=== PATIENT | female | born 1950 | race Caucasian/White ===

== ENCOUNTER → 2024-07-01 | Outpatient (CLI) | payer MEDICARE, MEDICAID, SELFPAY ==
[2024-07-01 10:38] LABS: Basophils # (Auto) 0.1 Thou/mm3 (0.0-0.2); Basophils % (Auto) 1 % (0-2.5); Eosinophils % (Auto) 0 % (0-10); Hemoglobin 9.5 g/dL (12.0-16.0); Immature Granulocytes % (Auto) 3 % (0-0); Immature Granulocytes Auto 0.38 Thou/mm3 (0.00-0.00); Lymphocytes % (Auto) 54 % (10-50); Mean Corpuscular HGB Conc 32.8 g/dl (31.0-37.0); Mean Corpuscular Hemoglobin 34.1 pg (25.0-35.0); Mean Corpuscular Volume 104 fL (80-100); Monocytes # (Auto) 0.8 Thou/mm3 (0.0-0.8); Monocytes % (Auto) 6 % (0-12); Neutrophils # (Auto) 4.7 Thou/mm3 (1.8-7.7); Neutrophils % (Auto) 36 % (37-80); Nucleated Red Blood Cell # 0.16 Thou/mm3 (0.00-0.00); Nucleated Red Blood Cell % 1 /100 WBC (0); Platelet Count 239 Thou/mm3 (140-440); RDW Standard Deviation 92.1 fL (36.4-46.3); Red Blood Count 2.79 Miln/mm3 (4.00-5.20); White Blood Count 12.9 Thou/mm3 (3.6-11.0)
== END | disposition home or self-care (01) ==
LOC: COPL 09:46
PROVIDERS: PCP Student in an Organized Health Care Education/Training Program; Referring Provider Student in an Organized Health Care Education/Training Program; Visit Provider Student in an Organized Health Care Education/Training Program
DX: D53.1 Other megaloblastic anemias, not elsewhere classified (principal); C91.10 Chronic lymphocytic leukemia of B-cell type not having achieved remission
CPT/HCPCS: 36415; 85025

== ENCOUNTER 2024-07-02 18:09 | Emergency (ER) | payer MEDICARE, MEDICAID, SELFPAY ==
[2024-07-02 18:10] VITALS: BMI 27.4
[2024-07-02 18:44] VITALS: BP 100/69; PULSE 120; RESP 18; TEMP 36.5; O2SAT 95
--- NOTE | 2024-07-02 18:55 | EKG_ITS ---
[facility] Test Date: 2024-07-02 Pat Name: JEANETTE SPEARS Department: Room: - Gender: Female [employer]: : 1950 Requested By: Marino Reis ([facility]) Order Number: [id number] Reading MD: Marino Reis ([facility]) Measurements Intervals [place] Rate: 112 P: MI: QRS: -62 QRSD: 176 T: 124 QT: 365 QTc: 500 Interpretive Statements ATRIAL FIBRILLATION WITH RAPID VENTRICULAR RESPONSE MARKED LEFT AXIS DEVIATION [QRS AXIS < -30] LEFT BUNDLE BRANCH BLOCK [120+ ms QRS DURATION, 80+ ms Q/S IN V1/V2, 85+ ms R IN I/aVL/V5/V6] Compared to ECG 05/21/2024 15:57:32 No significant changes /store/S0/[id number].pdf
--- NOTE | 2024-07-02 18:55 | XR_ITS ---
Examination: Chest 2 views Technique: Upright PA lateral chest 2 views Exam date and time: 07/02/2024 1915 hrs. Comparison September 2023 Indications: Rash and swelling in the abdomen today with chest pain Findings: Mild CHF Moderate enlargement cardiac contour Prominent vascular congestion Early perihilar basilar edema Moderate to large bilateral pleural effusions Intact osseous structures Impression: Moderate enlargement cardiac contour Mild CHF with significant bilateral pleural effusions
--- NOTE | 2024-07-02 18:57 | PD.EDRME ---
Rapid Medical Screening Exam RME Arrival date/time: 07/02/24 18:09 74-year-old female with past medical history of developmental delay, chronic kidney disease, hypertension, previous cardiac arrest, anemia, atrial fibrillation, hyperlipidemia, CHF, osteoporosis, presents emergency department with caregiver at bedside complaining of rash to bilateral lower abdomen and swelling. Chief Complaint: General Adult/Misc Complain Time Seen by Provider: 07/02/24 18:44 Vital signs: Vital Signs Temperature 97.7 F 07/02/24 18:44 Pulse Rate 120 H 07/02/24 18:44 Respiratory Rate 18 07/02/24 18:44 Blood Pressure 100/69 07/02/24 18:44 Pulse Oximetry (%) 95 07/02/24 18:44 Oxygen Delivery Method Room Air 07/02/24 18:44 Vital signs reviewed by provider: Yes
[2024-07-02 19:48] LABS: Basophils % (Auto) 0 % (0-2.5); Eosinophils % (Auto) 0 % (0-10); Hematocrit 30.2 % (36.0-46.0); Hemoglobin 9.9 g/dL (12.0-16.0); Immature Granulocytes % (Auto) 2 % (0-0); Immature Granulocytes Auto 0.35 Thou/mm3 (0.00-0.00); Lymphocytes # (Auto) 8.3 Thou/mm3 (1.0-4.8); Lymphocytes % (Auto) 55 % (10-50); Mean Corpuscular HGB Conc 32.8 g/dl (31.0-37.0); Mean Corpuscular Hemoglobin 34.3 pg (25.0-35.0); Mean Corpuscular Volume 105 fL (80-100); Monocytes # (Auto) 0.7 Thou/mm3 (0.0-0.8); Monocytes % (Auto) 4 % (0-12); Neutrophils # (Auto) 5.7 Thou/mm3 (1.8-7.7); Neutrophils % (Auto) 38 % (37-80); Nucleated Red Blood Cell # 0.15 Thou/mm3 (0.00-0.00); Nucleated Red Blood Cell % 1 /100 WBC (0); Platelet Count 257 Thou/mm3 (140-440); Red Blood Count 2.89 Miln/mm3 (4.00-5.20); White Blood Count 15.1 Thou/mm3 (3.6-11.0)
[2024-07-02 20:02] LABS: Alanine Aminotransferase 178 U/L (10-49); Albumin, Serum 4.3 gm/dL (3.4-4.8); Albumin/Globulin Ratio 1.9 (1.2-2.2); Alkaline Phosphatase 138 U/L (46-116); Anion Gap 14 (7-16); Aspartate Amino Transferase 50 U/L (0-34); BUN/Creatinine Ratio 25 Ratio (12-20); Bilirubin,Total 1.4 mg/dL (0.3-1.2); Blood Urea Nitrogen 85 mg/dL (9-23); Calcium 9.3 mg/dL (8.3-10.6); Calcium (Corrected) 9.3 mg/dL (8.5-10.1); Carbon Dioxide 24.8 mMol/L (20.0-31.0); Chloride 97 mMol/L (98-107); Creatinine (Component) 3.4 mg/dL (0.6-1.3); Estimated Creatinine Clearance 14.4 mL/min (>60); Globulin 2.3 gm/dL (2.3-3.5); Glucose 94 mg/dL (74-106); Osmolality,Calculated 297 (275-295); Potassium 3.2 mMol/L (3.4-5.1); Sodium 136 mMol/L (136-145); Total Protein 6.6 gm/dL (5.7-8.2); eGFR 14 See Note
[2024-07-02 20:05] LABS: INR 1.2 (0.9-1.3); Partial Thromboplastin Time 29.3 Seconds (22.0-36.0)
--- NOTE | 2024-07-02 20:46 | PD.EDADULT ---
ED General RME/HPI General Chief complaint: General Adult/Misc Complain Stated complaint: SWELLING TO LOWER ABD/VAGINAL AREA X3DAYS Time Seen by Provider: 07/02/24 18:44 Source: patient Arrival date/time: 07/02/24 18:09 Mode of arrival: ambulatory Limitations: no limitations RME / HPI RME / HPI narrative: 07/02/24 18:09 74-year-old female with past medical history of developmental delay, chronic kidney disease, hypertension, previous cardiac arrest, anemia, atrial fibrillation, hyperlipidemia, CHF, osteoporosis, presents emergency department with caregiver at bedside complaining of rash to bilateral lower abdomen and swelling. Dr. Escobar's Main ED Evaluation: 74-year-old male accompanied by sister who is primary hand knitter who presents to the emergency department for complaints of swollen lower abdomen today and bilateral leg swelling for the past 2 weeks. Patient's sister provides the history. She states patient is verbal but developmentally delayed. She notes patient has a rash across her lower abdomen and was going to apply ointment when she noticed it was swollen therefore she brought here her to be further evaluated. Patient's sister states she recently took the patient to be seen by her information security director for the rash. Patient was placed on antibiotics for 3 days. She denies any antifungal medications. Patient's sister also notes she is currently on Lasix. She is not on Xarelto at this time due to drug interaction with medication related to CLL per Dr. Ruiz. Patient's sister reports the following: shortness of breath, 2 falls about 1 month ago, and poor appetite and sleep. She denies nausea, vomiting, diarrhea, fever, sweating, cough, headache, chest pain or any other medical complaints or associated symptoms. Past medical history: Chronic lymphocytic leukemia previously followed by Dr. Galindo, now followed by Dr. Travis HTN, CHF, A-fib, CABG, previous cardiac arrest followed by Dr. Ruiz Chronic renal insufficiency followed by Dr. Valenzuela Developmental delay Allergic contact dermatitis Osteoporosis Remote history of seizures Social history: Nonsmoker. Nondrinker. No illicit drug use. PCP: Omari Hall Related Data Home Medications ?Medication ?Instructions ?Recorded ?Confirmed digoxin 125 mcg (0.125 mg) tablet 125 mcg PO EVERYOTHERDAY 07/20/20 05/08/23 magnesium oxide 400 mg (241.3 mg 400 mg PO QDAY 02/15/21 05/08/23 magnesium) tablet (MagOx) rivaroxaban 10 mg tablet (Xarelto) 10 mg PO QDAY 07/09/21 05/08/23 buspirone 5 mg tablet 5 mg BID 08/31/21 05/08/23 spironolactone 25 mg tablet 12.5 mg PO QDAY 08/31/21 05/08/23 carvedilol 3.125 mg tablet 3.125 mg PO BID 05/08/23 05/08/23 furosemide 40 mg tablet 40 mg PO QDAY 05/08/23 05/08/23 metolazone 2.5 mg tablet 2.5 mg PO 3XD 05/08/23 05/08/23 spironolactone 25 mg tablet mg 05/08/23 Previous Rx's ?Medication ?Instructions ?Recorded miconazole nitrate 2 % topical 1 applic topical BID #30 grams 07/02/24 cream Allergies Allergy/AdvReac Type Severity Reaction Status Date / Time morphine Allergy Severe Rash Verified 07/02/24 18:13 Penicillins Allergy Severe Hives Verified 07/02/24 18:13 Review of Systems Review of Systems Systems Reviewed: All systems reviewed, normal except as documented Past Medical History Past Medical History NEUROLOGIC: Positive Neurological Disorders, Seizures and Head Trauma CARDIAC: Positive Cardiac Disorders, Cardiac Arrhythmia, Atrial Fibrillation, Hypercholesterolemia, Congestive Heart Failure, Edema, Cellulitis and Hypertension; Negative Varicose Veins RESPIRATORY: Positive Pneumonia; Negative Chronic Obstructive Pulmonary Disease (COPD), Asthma, Tuberculosis or Sleep Apnea GASTROINTESTINAL: Negative Gastrointestinal Disorders, Hepatitis or Gastroesophageal Reflux Disease GENITOURINARY: Positive Genitourinary Disorders and Renal Disease MUSCULOSKELETAL: Positive Musculoskeletal Disorders and Osteoporosis ENT: Positive Head Trauma ENDOCRINE: Negative Endocrine Disorders, Diabetes Mellitus Type 1, Diabetes Mellitus Type 2 or Hypothyroidism HEMATOLOGIC: Positive Blood Disorders and Anemia; Negative Sickle Cell Disease PSYCHO/SOCIAL: Positive Depression and Behavior Problems; Negative Psychiatric Problems OTHER HISTORY: Positive Hospitalization and Developmental Delay; Negative Autoimmune Disease, Shingles, Falls, Blood Transfusions, Anesthesia Reactions, Chemotherapy, Radiation Therapy, MRSA, Chicken Pox, Measles, Mumps or Cancer Family History FAMILY HISTORY: Positive Family Respiratory Disorders, Family Cardiac Disorders, Family Cancer and Family Surgery; Negative Family Psychiatric Problems, Family Gastrointestinal Problems or Family Anesthesia Reaction Surgical History SURGICAL: Positive Cardiac Surgery, Open Heart Surgery and Coronary Artery Bypass Graft; Negative Pacemaker or Abdominal Surgery Social History SMOKING STATUS: Never smoker SUBSTANCE USE: does not use Past Medical History Comments PMH COMMENT: Chronic lymphocytic leukemia previously followed by Dr. Galindo, now followed by Dr. Travis HTN, CHF, A-fib on Xarelto, CABG, previous cardiac arrest followed by Dr. Ruiz Chronic renal insufficiency followed by Dr. Valenzuela Developmental delay Allergic contact dermatitis Osteoporosis Remote history of seizures ED Exam Narrative Physical exam: GENERAL: Patient is alert awake oriented to person and place under no distress, laying down comfortably at 30-45?; does not acutely look ill/ toxic. Patient is obese. Patient has poor eye contact but is cooperative. VITALS: All vitals were reviewed and the pulse ox is 95% on room air, which is normal according to my interpretation. HEENT: Normocephalic, atraumatic and nontender. Pupils are equal and reactive to light and accommodation. Oral mucosa are moist. NECK: Supple, nontender, no meningismus, no JVD. CHEST: Nontender on palpation, no deformity and no crepitus. CARDIOVASCULAR: Heart regular rhythm no murmur or gallop rub or extra beats; not tachycardic. LUNGS: Clear to auscultation bilaterally with symmetrical chest rise. No laboring tachypnea or wheezing. No intercostal subcostal retraction. No rales and no rhonchi. ABDOMEN: Soft, flat, nontender at all, no guarding or rebound tenderness. There are no abnormal masses palpated. No pulsatile masses or bruits. Active and normal bowel sounds. GENITALIA: Not examined. RECTAL EXAM: Not done. EXTREMITIES: Nontender. No edema. No cyanosis. Patient is able to move all 4 extremities well. SKIN: There is a redness and warmness just underneath the fold of her abdomen which seems to be created by the moisture and the heat. This is compatible with yeast infection but there is no secondary bacterial infection. MUSCULOSKELETAL: No lumbar or midline bony tenderness. There is no CVA tenderness. No paraspinal muscle spasm or tenderness. NEURO: There is no focalization. GCS is 14. PSYCHIATRIC: Patient is in normal mood and affect, cooperative. General Limitations: Present no limitations Course Course Course Narrative: CXR is ordered for determining etiology of chest pain per Gisell P[facility] during RME. Quality Measures none Orders Category Date Time Status EKG (ED ONLY) *Do not use* NOW Care 07/02/24 18:55 Completed EKG (ED Only) Stat Exams 07/02/24 18:55 Draft XR chest 2V Stat Exams 07/02/24 18:55 Completed BNP [B-Type Natriuretic Peptide] Stat Lab 07/02/24 17:36 Received CBC Stat Lab 07/02/24 19:36 Completed Comprehensive Metabolic Panel Stat Lab 07/02/24 19:36 Completed PT [Prothrombin Time with INR] Stat Lab 07/02/24 19:36 Completed PTT [Partial Thromboplastin Time] Stat Lab 07/02/24 19:36 Completed Troponin I Stat Lab 07/02/24 19:36 Completed Urinalysis, C/S if Indicated Stat Lab 07/02/24 18:55 Ordered Nystatin Oint [Mycostatin Oint] Med 07/02/24 21:16 Discontinued See Dose Instructions TOP X1 ONE Vital Signs Vital signs: Vital Signs Temperature 97.7 F 07/02/24 18:44 Pulse Rate 120 H 07/02/24 18:44 Respiratory Rate 18 07/02/24 18:44 Blood Pressure 100/69 07/02/24 18:44 Pulse Oximetry (%) 95 07/02/24 18:44 Oxygen Delivery Method Room Air 07/02/24 18:44 [facility] Patient data External records reviewed:: [facility] previous records Clinical information provided by:: family (sister) Social determinants that could affect healthcare access:: other (specify) (Developmental delay) Patient has the following chronic illnesses:: Chronic lymphocytic leukemia previously followed by Dr. Galindo, now followed by Dr. Travis HTN, CHF, A-fib on Xarelto, CABG, previous cardiac arrest followed by Dr. Ruiz Chronic renal insufficiency followed by Dr. Valenzuela Developmental delay Allergic contact dermatitis Osteoporosis Remote history of seizures How is presenting disease/condition affected by chronic disease/condition?: uneffected by Evaluation data The following diagnostics were reviewed and interpreted by me:: lab results, radiology exam(s) and EKG tracing(s) Lab and/or radiology exams considered but not ordered:: None Interpretation Summary: See narrative. I personally reviewed CXR on this patient. Films were reviewed. I agree with the radiologist's interpretation. Examination: Chest 2 views Technique: Upright PA lateral chest 2 views Exam date and time: 07/02/2024 1915 hrs. Comparison September 2023 Indications: Rash and swelling in the abdomen today with chest pain Findings: Mild CHF Moderate enlargement cardiac contour Prominent vascular congestion Early perihilar basilar edema Moderate to large bilateral pleural effusions Intact osseous structures Impression: Moderate enlargement cardiac contour Mild CHF with significant bilateral pleural effusions Dictated By: Kadeem Calvert MD Medications Medications considered but not ordered:: None Medication administrations:: Medication Administration History Discontinued Medications Nystatin (Nystatin Oint 30 Gm Tube) 0 gm TOP X1 ONE Stop: 07/02/24 21:17 Last Admin: 07/02/24 21:21 Dose: Not Given Documented By: SE Non-Admin Reason: Cancelled by Provider As above, if any Consultations Consultation(s) initiated? (list below): No Diagnosis Differential Diagnosis ED Complaint MDM: Yeast dermatitis, bacterial dermatitis Most likely diagnosis given after review of the tests above:: Yeast dermatitis, Chronic renal failure, Delayed emotional development Admission Indicated Admission indicated?: not indicated Explain why admission is indicated or not indicated:: Patient has no emergent abnormalities in her studies and can be managed on an outpatient basis. Admission Request Was there a request for admission?: No Disposition Plan Disposition Plan: Discharge Discharge Attestation Discharge Attestation: The patient and all family members were given an opportunity to ask questions and understood the discharge instructions. Discharge instructions specifically effects, indications for sooner follow up or return to the emergency department, and the expected course of current diagnosis. Patient condition: Stable Medical Decision Making MDM Narrative MDM Narrative: Scribe Attestation: Edith Barba am scribing for and in the presence of Dr. Escobar. Patient is a developmentally delayed patient, brought in by her sister who is concerned about her lower abdomen which is red underneath the skin fold. Patient is able to speak and she communicates fairly well. She is oriented to person and place. Patient states this rash has been there for the last 2 weeks and has been itching her. She denies any fever chills or sweating, any nausea vomiting or diarrhea. Patient denies any chest pain or coughing or headache. She complained of shortness of breath but actively she is saturating well at 95% on room air. Patient also has history of chronic lymphocytic leukemia. Her blood tests indicate her white count to be elevated at 15 but the differential is normal. H&H is 10 and 30 which is at her baseline. Her BUN and creatinine are quite elevated at 85 and 3.4 which is worse than her usual but her potassium is normal at 3.2 and her GFR is 14. The sister says that she has been with as low GFR as this in the past and there was no need for dialysis. She is being followed up by Dr Valenzuela, the mycology teacher. Patient denies any nausea vomiting or diarrhea and she denies any abdominal pain except for pain at the skin level of the fold. Patient is hemodynamically stable therefore I will discharge her home on Mycostatin cream 2%. Provider Notation: Although this document has been carefully reviewed, there may still be some phonetic and other typographical errors. These errors are purely grammatical due to imperfections in the software program and should not be construed in any way to compromise the substance of the patient's medical care during this visit. Differential Diagnosis Differential Diagnosis: Yeast dermatitis, bacterial dermatitis Medical Records Medical records reviewed: Yes I reviewed the patient's medical records. Lab Data Lab results reviewed: Yes I reviewed the patient's lab results. 07/02/24 19:36 07/02/24 19:36 Labs: Lab Results 07/02/24 Range/Units 19:36 WBC 15.1 H (3.6-11.0) Thou/mm3 RBC 2.89 L (4.00-5.20) Miln/mm3 Hgb 9.9 L (12.0-16.0) g/dL Hct 30.2 L (36.0-46.0) % MCV 105 H (80-100) fL MCH 34.3 (25.0-35.0) pg MCHC 32.8 (31.0-37.0) g/dl RDW Std Deviation 95.0 H (36.4-46.3) fL Plt Count 257 (140-440) Thou/mm3 Neut % (Auto) 38 (37-80) % Lymph % (Auto) 55 H (10-50) % [place] % (Auto) 4 (0-12) % Eos % (Auto) 0 (0-10) % Baso % (Auto) 0 (0-2.5) % Neut # (Auto) 5.7 (1.8-7.7) Thou/mm3 Lymph # (Auto) 8.3 H (1.0-4.8) Thou/mm3 [place] # (Auto) 0.7 (0.0-0.8) Thou/mm3 Eos # (Auto) 0.0 (0.0-0.5) Thou/mm3 Baso # (Auto) 0.0 (0.0-0.2) Thou/mm3 Immature Gran # (Auto) 0.35 H (0.00-0.00) Thou/mm3 Absolute Nucleated RBC 0.15 H (0.00-0.00) Thou/mm3 Immature Gran % 2 H (0-0) % Nucleated RBC % 1 H (0) /100 WBC PT 13.0 H (9.0-12.2) Seconds INR 1.2 (0.9-1.3) APTT 29.3 (22.0-36.0) Seconds Sodium 136 (136-145) mMol/L Potassium 3.2 L (3.4-5.1) mMol/L Chloride 97 L (98-107) mMol/L Carbon Dioxide 24.8 (20.0-31.0) mMol/L Anion Gap 14 (7-16) BUN 85 H (9-23) mg/dL Creatinine 3.4 H (0.6-1.3) mg/dL Estim Creat Clear Calc 14.4 L (>60) mL/min eGFR 14 L* (60 - ) See Note BUN/Creatinine Ratio 25 H (12-20) Ratio Glucose 94 (74-106) mg/dL Calculated Osmolality 297 H (275-295) Calcium 9.3 (8.3-10.6) mg/dL Corrected Calcium 9.3 (8.5-10.1) mg/dL Total Bilirubin 1.4 H (0.3-1.2) mg/dL AST 50 H (0-34) U/L ALT 178 H (10-49) U/L Alkaline Phosphatase 138 H (46-116) U/L Troponin I 0.090 H* (0.0-0.045) ng/mL Total Protein 6.6 (5.7-8.2) gm/dL Albumin 4.3 (3.4-4.8) gm/dL Globulin 2.3 (2.3-3.5) gm/dL Albumin/Globulin Ratio 1.9 (1.2-2.2) Radiology Data Radiology results reviewed: Yes I reviewed the patient's radiology results. Discharge Plan Plan Patient Disposition: HOME (Self Care) Prescriptions/Referrals Prescriptions/Med Rec: New miconazole nitrate 2 % cream 1 applic topical BID Qty: 30 0RF No Action digoxin 125 mcg (0.125 mg) Tablet 125 mcg PO EVERYOTHERDAY magnesium oxide [MagOx] 400 mg (241.3 mg magnesium) Tablet 400 mg PO QDAY Xarelto 10 mg Tablet 10 mg PO QDAY buspirone 5 mg tablet 5 mg BID spironolactone 25 mg Tablet 12.5 mg PO QDAY furosemide 40 mg tablet 40 mg PO QDAY Patient Comments: TAKE 1 TABLET BY MOUTH EVERY DAY metolazone 2.5 mg tablet 2.5 mg PO 3XD Patient Comments: TAKE 1 TABLET BY MOUTH THREE TIMES A WEEK. spironolactone 25 mg tablet Patient Comments: TAKE 1/2 TABLET BY MOUTH EVERY DAY carvedilol 3.125 mg tablet 3.125 mg PO BID Patient Comments: TAKE 1 TABLET BY MOUTH TWICE A DAY Referrals: Anant Cash MD [Primary Care Provider] - 07/05/24 10:00 am Problem List Clinical Impression: Yeast dermatitis, Chronic renal failure, Delayed emotional development Patient/Caregiver Discharge Instructions Education Materials: ED No Skin Infection (Adult) Additional Instructions: Wash and dry the area twice a day and try to keep the area exposed to air as much as possible. After washing and drying well, apply a thin layer of miconazole 2% twice a day, as prescribed. Follow-up with your doctor in 2 to 3 days for recheck. Print Language: Iraqi Stand Alone Forms: Tala Award Info., Patient Portal Info Letter
[2024-07-02 21:37] LABS: B-Type Natriuretic Peptide 1591 pg/mL (0-100)
== END 2024-07-02 22:14 | disposition home or self-care (01) ==
PROVIDERS: Emergency Provider Emergency Medicine; PCP Student in an Organized Health Care Education/Training Program
DX: I13.0 Hypertensive heart and chronic kidney disease with heart failure and stage 1 through stage 4 chronic kidney disease, or unspecified chronic kidney disease (principal); N18.9 Chronic kidney disease, unspecified; I50.9 Heart failure, unspecified; B37.2 Candidiasis of skin and nail; I48.91 Unspecified atrial fibrillation; I44.7 Left bundle-branch block, unspecified; F88 Other disorders of psychological development; Z95.1 Presence of aortocoronary bypass graft; Z86.74 Personal history of sudden cardiac arrest
CPT/HCPCS: 36415; 71046; 80053; 81001; 83880; 84484; 85025; 85610; 85730; 93005; 99283; A9270

== ENCOUNTER → 2024-07-04 | Outpatient (CLI) | payer MEDICARE, MEDICAID, SELFPAY ==
[2024-07-04 11:25] LABS: Basophils % (Auto) 0 % (0-2.5); Eosinophils # (Auto) 0.1 Thou/mm3 (0.0-0.5); Eosinophils % (Auto) 0 % (0-10); Hematocrit 29.6 % (36.0-46.0); Hemoglobin 9.7 g/dL (12.0-16.0); Immature Granulocytes % (Auto) 3 % (0-0); Immature Granulocytes Auto 0.32 Thou/mm3 (0.00-0.00); Lymphocytes # (Auto) 5.1 Thou/mm3 (1.0-4.8); Lymphocytes % (Auto) 43 % (10-50); Mean Corpuscular HGB Conc 32.8 g/dl (31.0-37.0); Mean Corpuscular Hemoglobin 34.8 pg (25.0-35.0); Mean Corpuscular Volume 106 fL (80-100); Monocytes # (Auto) 0.8 Thou/mm3 (0.0-0.8); Monocytes % (Auto) 7 % (0-12); Neutrophils # (Auto) 5.6 Thou/mm3 (1.8-7.7); Neutrophils % (Auto) 47 % (37-80); Nucleated Red Blood Cell # 0.06 Thou/mm3 (0.00-0.00); Nucleated Red Blood Cell % 1 /100 WBC (0); Platelet Count 226 Thou/mm3 (140-440); RDW Standard Deviation 98.3 fL (36.4-46.3); Red Blood Count 2.79 Miln/mm3 (4.00-5.20); White Blood Count 11.9 Thou/mm3 (3.6-11.0)
[2024-07-04 11:41] LABS: Parathyroid Hormone Intact 352.4 pg/ml (18.5-88.0)
[2024-07-04 11:44] LABS: Vitamin D 25 Hydroxy Total 25.1 ng/mL (7.3-40.2)
[2024-07-04 11:48] LABS: Anion Gap 14 (7-16); BUN/Creatinine Ratio 31 Ratio (12-20); Blood Urea Nitrogen 92 mg/dL (9-23); Calcium 9.3 mg/dL (8.3-10.6); Calcium (Corrected) 9.3 mg/dL (8.5-10.1); Carbon Dioxide 23.8 mMol/L (20.0-31.0); Chloride 101 mMol/L (98-107); Glucose 133 mg/dL (74-106); Magnesium 2.8 mg/dL (1.6-2.6); Osmolality,Calculated 307 (275-295); Phosphorous 5.7 mg/dL (2.4-5.1); Potassium 3.5 mMol/L (3.4-5.1); Sodium 139 mMol/L (136-145); eGFR 16 See Note
[2024-07-04 15:49] LABS: Collection Type, Urine Clean Catch
[2024-07-04 16:55] LABS: Amorphous Crystals,Urine Present (Absent); Bacteria,Urine Rare; Bilirubin,Urine Negative (Negative); Blood,Urine Negative (Negative); Clarity,Urine Turbid (Clear/Hazy); Color,Urine Lt-Yellow (Lt Yel-Yel); Glucose, Urine Negative (Negative); Hyaline Casts,Urine < 1 /hpf (0-1); Ketones,Urine Negative (Negative); Leukocyte Esterase,Urine Positive (Negative); Nitrite,Urine Negative (Negative); PH,Urine 6.5 (5.0-7.0); Protein,Urine Negative (Neg - Trace); RBC,Urine 15 /hpf (0-3); Specific Gravity,Urine 1.011 (1.001-1.035); Squamous Epithelial Cell,Urine 4 /hpf (0-5); Urobilinogen,Urine Negative mg/dL (0.0-1.0); WBC,Urine 3 /hpf (0-5)
== END | disposition home or self-care (01) ==
LOC: COPL 10:47
PROVIDERS: PCP Nurse Practitioner Family; Referring Provider Internal Medicine Nephrology; Visit Provider Internal Medicine Nephrology
DX: D61.3 Idiopathic aplastic anemia (principal); I50.9 Heart failure, unspecified; I48.91 Unspecified atrial fibrillation
CPT/HCPCS: 36415; 80069; 81001; 82306; 83735; 83970; 85025

== ENCOUNTER → 2024-07-05 | Outpatient (CLI) | payer MEDICARE, MEDICAID, SELFPAY ==
[2024-07-05 08:30] LABS: Basophils % (Auto) 0 % (0-2.5); Eosinophils # (Auto) 0.1 Thou/mm3 (0.0-0.5); Eosinophils % (Auto) 1 % (0-10); Hematocrit 30.1 % (36.0-46.0); Hemoglobin 9.9 g/dL (12.0-16.0); Immature Granulocytes % (Auto) 4 % (0-0); Immature Granulocytes Auto 0.47 Thou/mm3 (0.00-0.00); Lymphocytes # (Auto) 6.1 Thou/mm3 (1.0-4.8); Lymphocytes % (Auto) 47 % (10-50); Mean Corpuscular HGB Conc 32.9 g/dl (31.0-37.0); Mean Corpuscular Hemoglobin 35.1 pg (25.0-35.0); Mean Corpuscular Volume 107 fL (80-100); Monocytes % (Auto) 8 % (0-12); Neutrophils # (Auto) 5.2 Thou/mm3 (1.8-7.7); Neutrophils % (Auto) 41 % (37-80); Nucleated Red Blood Cell # 0.05 Thou/mm3 (0.00-0.00); Nucleated Red Blood Cell % 0 /100 WBC (0); Platelet Count 208 Thou/mm3 (140-440); RDW Standard Deviation 99.6 fL (36.4-46.3); Red Blood Count 2.82 Miln/mm3 (4.00-5.20); White Blood Count 12.9 Thou/mm3 (3.6-11.0)
[2024-07-05 08:59] LABS: Anion Gap 12 (7-16); BUN/Creatinine Ratio 34 Ratio (12-20); Blood Urea Nitrogen 96 mg/dL (9-23); Calcium 9.8 mg/dL (8.3-10.6); Carbon Dioxide 25.9 mMol/L (20.0-31.0); Chloride 103 mMol/L (98-107); Creatinine (Component) 2.8 mg/dL (0.6-1.3); Glucose 118 mg/dL (74-106); Osmolality,Calculated 311 (275-295); Potassium 3.5 mMol/L (3.4-5.1); Sodium 141 mMol/L (136-145); eGFR 17 See Note
[2024-07-05 09:00] LABS: B-Type Natriuretic Peptide 1774 pg/mL (0-100)
== END | disposition home or self-care (01) ==
PROVIDERS: PCP Student in an Organized Health Care Education/Training Program; Referring Provider Internal Medicine Cardiovascular Disease; Visit Provider Internal Medicine Cardiovascular Disease
DX: I50.22 Chronic systolic (congestive) heart failure (principal); I48.20 Chronic atrial fibrillation, unspecified; D64.9 Anemia, unspecified
CPT/HCPCS: 36415; 80048; 83880; 85025

== ENCOUNTER 2024-07-09 14:45 | Outpatient (RCR) | payer MEDICARE, MEDICAID, SELFPAY ==
--- NOTE | 2024-07-21 23:55 | CTCFLWUP_ITS ---
Patient: DIPTI SPEARS : 1950 Page 6 of 6 FOLLOW UP NOTE DATE OF SERVICE: 07/09/2024 NAME: DIPTI SPEARS ACCOUNT: [id number] : 1950 AGE: 73 DIAGNOSIS: Chronic lymphocytic leukemia. 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 Chronic renal insufficiency being followed by Dr. Cornejo. 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 Kaplan Hypertension REASON FOR TODAY?S VISIT: This is office follow-up visit. Ms. Spears is here at [facility]. Ms. Spears unable to tolerate acalabrutinib and the medication was held. Patijohnny t is minimal functional at baseline. Patient's sister is primary caregiver and decision maker for he r. HISTORY OF PRESENT ILLNESS: Dipti Spears is a 73-year-old ENG speaking female with mental retardation was recently found to have leukocytosis and lymphocytosis. She is referred to hematology clinic for further workup. 02/02/2023: WBC 16.0, absolute lymphocyte count 8.9, hemoglobin 8.8, MCV 105, platelets 281,000. 04/07/2023: WBC 18.0, absolute lymphocyte count 11.0, hemoglobin 8.2, MCV 104, platelets 356,000, crea tinine 2.3, EGFR 22, albumin 4.4. 11/17/2023: WBC 21.0, lymphocytes 13.8, hemoglobin 8.6, MCV 104, platelets 358,000. 12/26/2023: Flow cytometry of the peripheral blood 12/26/2023: Neotype CLL FISH panel I GVH mutation analysis 03/28/2024: WBC 22.9, ALC 16.7, hemoglobin 8.1, MCV 108, platelet count 316,000. 04/26/2024: WBC 24.3, ALC 17.8, hemoglobin 7.2, MCV 107, platelets 324,000. Creatinine 1.9. PAST MEDICAL HISTORY: Developmentally disabled Anemia CKD- Dr. Valenzuela HTN CHF - Dr. Ruiz Atrial fibrillation CAD PAST SURGICAL HISTORY: Coronary?artery?bypass?graft MEDICATIONS: 1. allopurinol - 100 mg 1 tab Daily 2. Aquaphor OriginaL - 41 % 1 As directed 3. busPIRone - 5 mg 1 tab Twice a Day 4. Calquence - 100 mg 1 Capsule As directed 5. carvedilol - 3.125 mg 1 tab Twice a Day 6. ciprofloxacin HCl - 250 mg 1 tab Daily 7. digoxin - 125 mcg 1 tab Every other day 8. fexofenadine - 180 mg 1 tab Daily 9. furosemide - 40 mg 1 tab Daily 10. hydrOXYzine HCl - 10 mg 1 tab Daily 11. loratadine - 10 mg 1 tab Daily 12. magnesium oxide - 400 mg magnesium 1 tab Daily 13. ramipriL - 10 mg 1 Capsule Daily 14. spironolactone - 25 mg 0.5 tab Daily 15. terbinafine HCl - 250 mg 1 tab Daily 16. Xarelto - 10 mg 1 tab Daily 17. Zaroxolyn - 2.5 mg 1 tab As directed Medications Last Reconciled by Daniela Fox MA on 05/01/2024 ALLERGIES: Penicillins REVIEW OF SYSTEMS: Neurological: No headache, seizures or blurring of vision. Gastrointestinal: No nausea, vomiting, diarrhea or constipation. Cardiovascular: No palpitations or angina pains. Respiratory: No cough, chest pain or shortness of breath. PHYSICAL EXAMINATION: VITAL SIGNS: This is a suboptimal examination due to noncooperation from Ms. Spears who has mental retardation. Alert to her name but do not answer questions CHEST: Clear to auscultation. No wheezes or rales audible. CARDIAC: Rhythm regular, no murmurs or gallops present. ABDOMEN: Soft. No hepatomegaly. No splenomegaly. EXTREMITIES: No pedal edema or cyanosis. LABORATORY DATA: Date Time ASSESSMENT: 1. 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 Dr. Kadeem Calvert cannot d o the bone marrow biopsy in the OR since CT scanner is not available in the OR. Patient's sister does not want bone marrow biopsy to be done under conscious sedation stating that Ms Aminah Spears would not be able to cooperate. It was started on acalabrutinib and was unable to tolerate it Patient's sister decided to stop the treatment and is now just on active surveillance Discussed with her and if needed I advised that I can send for second opinion Patient has very poor quality of life. Patient's sister do not want to do hospice at this point. Will continue to monitor the patient and support her 2. Macrocytic anemia, iron saturation 20%, B12 372, folate 23.71, ferritin 569., LDH 202, direct giovana i 0.2 and total bili 0.4. Direct antiglobulin test negative. No evidence for hemolytic anemia. 3. Chronic renal insufficiency being followed by Dr. Cornejo. 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 Mental retardation 5. Remote history of seizures 6. Congestive heart failure currently being followed by Dr. Kaplan 7. Hypertension PLAN: Continue monitoring with the labs Signed by Dr Travis CC: PCP: Omari Hall Referring: Omari Hall This document was completed utilizing speech recognition software. Grammatical errors, random word in sertions, pronoun errors, and incomplete sentences are an occasional consequence of this system due t o software limitations, ambient noise, and hardware issues. Any formal questions or concerns about th e content, text or information contained within the body of this dictation should be directly address ed to the provider for clarification.
== END 2024-07-13 23:59 | disposition home or self-care (01) ==
LOC: SCTC 14:45
PROVIDERS: PCP Student in an Organized Health Care Education/Training Program; Referring Provider Student in an Organized Health Care Education/Training Program; Visit Provider Internal Medicine Hematology & Oncology
DX: C91.10 Chronic lymphocytic leukemia of B-cell type not having achieved remission (principal); D53.9 Nutritional anemia, unspecified; F79 Unspecified intellectual disabilities; I13.0 Hypertensive heart and chronic kidney disease with heart failure and stage 1 through stage 4 chronic kidney disease, or unspecified chronic kidney disease; N18.9 Chronic kidney disease, unspecified; I50.9 Heart failure, unspecified
CPT/HCPCS: 99212; G0463

== ENCOUNTER → 2024-08-30 | Outpatient (CLI) | payer MEDICARE, MEDICAID, SELFPAY ==
[2024-08-30 13:02] LABS: Basophils # (Auto) 0.1 Thou/mm3 (0.0-0.2); Basophils % (Auto) 0 % (0-2.5); Eosinophils % (Auto) 0 % (0-10); Hematocrit 25.2 % (36.0-46.0); Immature Granulocytes % (Auto) 1 % (0-0); Immature Granulocytes Auto 0.22 Thou/mm3 (0.00-0.00); Lymphocytes # (Auto) 14.8 Thou/mm3 (1.0-4.8); Lymphocytes % (Auto) 66 % (10-50); Mean Corpuscular HGB Conc 32.9 g/dl (31.0-37.0); Mean Corpuscular Hemoglobin 34.3 pg (25.0-35.0); Mean Corpuscular Volume 104 fL (80-100); Monocytes # (Auto) 1.3 Thou/mm3 (0.0-0.8); Monocytes % (Auto) 6 % (0-12); Neutrophils % (Auto) 27 % (37-80); Nucleated Red Blood Cell % 0 /100 WBC (0); Platelet Count 399 Thou/mm3 (140-440); RDW Standard Deviation 77.9 fL (36.4-46.3); Red Blood Count 2.42 Miln/mm3 (4.00-5.20); White Blood Count 22.5 Thou/mm3 (3.6-11.0)
[2024-08-30 13:04] LABS: Hemoglobin 8.3 g/dL (12.0-16.0)
[2024-08-30 13:39] LABS: Alanine Aminotransferase 13 U/L (10-49); Albumin, Serum 4.6 gm/dL (3.4-4.8); Alkaline Phosphatase 129 U/L (46-116); Anion Gap 12 (7-16); Aspartate Amino Transferase 14 U/L (0-34); Bilirubin,Total 0.9 mg/dL (0.3-1.2); Calcium 9.8 mg/dL (8.3-10.6); Calcium (Corrected) 9.8 mg/dL (8.5-10.1); Carbon Dioxide 31.6 mMol/L (20.0-31.0); Chloride 97 mMol/L (98-107); Creatinine (Component) 2.3 mg/dL (0.6-1.3); Globulin 2.3 gm/dL (2.3-3.5); Glucose 121 mg/dL (74-106); Potassium 3.5 mMol/L (3.4-5.1); Sodium 141 mMol/L (136-145); Total Protein 6.9 gm/dL (5.7-8.2); eGFR 22 See Note
[2024-08-30 14:05] LABS: BUN/Creatinine Ratio 45 Ratio (12-20); Osmolality,Calculated 314 (275-295)
[2024-08-30 14:06] LABS: Blood Urea Nitrogen 103 mg/dL (9-23)
== END | disposition home or self-care (01) ==
PROVIDERS: PCP Student in an Organized Health Care Education/Training Program; Referring Provider Internal Medicine Hematology & Oncology; Visit Provider Internal Medicine Hematology & Oncology
DX: D53.1 Other megaloblastic anemias, not elsewhere classified (principal)
CPT/HCPCS: 36415; 80053; 85025

== ENCOUNTER 2024-09-02 13:54 | Outpatient (RCR) | payer MEDICARE, MEDICAID, SELFPAY ==
--- NOTE | 2024-09-02 15:02 | CTCFLWUP_ITS ---
Patient: DIPTI SPEARS : 1950 Page 5 of 7 FOLLOW UP NOTE DATE OF SERVICE: 09/02/2024 NAME: DIPTI SPEARS ACCOUNT: [id number] : 1950 AGE: 74 INTERVAL HISTORY: 74 yr old women with mental retardation . patient had injuries on her hand . she develeoped celluli tis . she still have knukle which is very red. Patient was admitted to the hospital and received IV antibiotics. During the process patient has lost about 30 pounds of weight. Of note patient is ment ally delayed and do not complain. Patient deficiency family were not aware about the hand injury unt il later. Per sister patient is improving. Patient was also noted to have worsening renal failure. Patient is yet to see hand surgeon. Patient was treated with acalabrutinib but was unable to tolerate requiring heart hospitalization. Gissell bullard is on not on any treatment for her CLL. HISTORY OF PRESENT ILLNESS: Dipti Spears is a 74-year-old ENG speaking female with mental retardation was recently fou nd to have leukocytosis and lymphocytosis. She is referred to hematology clinic for further workup. 02/02/2023: WBC 16.0, absolute lymphocyte count 8.9, hemoglobin 8.8, MCV 105, platelets 281,000. 04/07/2023: WBC 18.0, absolute lymphocyte count 11.0, hemoglobin 8.2, MCV 104, platelets 356,000, crea tinine 2.3, EGFR 22, albumin 4.4. 11/17/2023: WBC 21.0, lymphocytes 13.8, hemoglobin 8.6, MCV 104, platelets 358,000. 12/26/2023: Flow cytometry of the peripheral blood 12/26/2023: Neotype CLL FISH panel I GVH mutation analysis 03/28/2024: WBC 22.9, ALC 16.7, hemoglobin 8.1, MCV 108, platelet count 316,000. 04/26/2024: WBC 24.3, ALC 17.8, hemoglobin 7.2, MCV 107, platelets 324,000. Creatinine 1.9. OTHER MEDICAL HISTORY/CONDITIONS: Developmentally disabled Anemia CKD- Dr. Valenzuela HTN CHF - Dr. 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 Aquaphor OriginaL - 41 % 1 As directed 2. busPIRone - 5 mg 1 tab Twice a Day 3. calcitriol - 0.25 mcg 1 Capsule As directed 4. carvedilol - 3.125 mg 1 tab Twice a Day 5. digoxin - 125 mcg 1 tab Daily 6. fluconazole - 200 mg 1 tab Daily 7. furosemide - 40 mg 1 tab Twice a Day 8. loratadine - 10 mg 1 tab Daily 9. metOLazone - 2.5 mg 1 tab Three times a day 10. ondansetron HCl - 4 mg 1 tab 1 tab po every 8 hours prn nausea 11. spironolactone - 25 mg 0.5 tab Daily 12. Xarelto - 10 mg 1 tab Daily 13. Zaroxolyn - 2.5 mg 1 tab As directed Medications Last Reconciled by Qiana Fernandez MA on 09/02/2024 ALLERGIES: Penicillins REVIEW OF SYSTEMS: A complete 14-point review of systems was performed and is negative except as noted in interval histo ry. PHYSICAL EXAMINATION: VITAL SIGNS: Temperature?97.9, B/P?104/54, Oxygen?Saturation?99% Weight?125?lbs PAIN: 0 - No pain ECOG Performance Status: 3 - Symptomatic; limited self-care; spends >50% of time in bed, not bedridde n This is a suboptimal examination due to noncooperation from Ms. Spears who has mental retardation. LABORATORY DATA: I have personally reviewed and interpreted each of the patient?s relevant lab tests, abnormal finding s are below: Date 08/30/24 ??WHITE?BLOOD?COUNT?(Thou/mm3) 22.5?H ??RED?BLOOD?COUNT?(Miln/mm3) 2.42?L ??HEMOGLOBIN?(gm/dl) 8.3?L ??HEMATOCRIT?(%) 25.2?L ??PLATELET?COUNT?(Thou/mm3) 399 ??NEUTROPHILS?%,?AUTO?(%) 27?L ??LYMPH?%,?AUTO?(%) 66?H ??NEUTROPHILS,?AUTO?(Thou/mm3) 6.0 ASSESSMENT/PLAN: 1. 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 Dr. Kadeem Calvert cannot d o the bone marrow biopsy in the OR since CT scanner is not available in the OR. Patient's sister does not want bone marrow biopsy to be done under conscious sedation stating that Ms Aminah Spears would not be able to cooperate. Patient was started on acalabrutinib and was unable to tolerate it I discussed with the sister that we can restart ibrutinib at 50 mg and see how she does. Will wait u ntil patient is seen by hand surgeon and infection is treated Patient lost 30 pound since last 4 weeks. She have cellulistis on hand . Today one of knukle is swollen Patient have not completed pet scan or ct scan ? need to evaluate to look for LNS Patient completed antibiotics Patient is high risk for anesthesia Will send to [facility] .. appointment is on sep 19 to follow up. She will follow-up with Dr. Escuderoq Will run for flowcytometry .. patient have monocytosis 2. Macrocytic anemia, iron saturation 20%, B12 372, folate 23.71, ferritin 569., LDH 202, direct giovana i 0.2 and total bili 0.4. Direct antiglobulin test negative. No evidence for hemolytic anemia. 3. Chronic renal insufficiency being followed by Dr. Cornejo. 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 Mental retardation 5. Remote history of seizures 6. Congestive heart failure currently being followed by Dr. Kaplan 7. Hypertension ORDERS: Flowcytometry,cbc,cmp,bone marrow,pet scan ,ct scan open RETURN TO CLINIC: 3-4 weeks BILLING AND COMPLIANCE: I reviewed external records from providers outside my specialty as summarized above. I spent a total of 50 minutes on this patient?s care on the day of their visit excluding time spent related to any bi lled procedures. This time includes time spent with the patient as well as time spent documenting in the medical record, reviewing patients records and tests, obtaining history, placing orders, communi cating with other healthcare professionals, counseling the patient, family or caregiver, and/or care coordination for the diagnoses above. Electronically Signed by: Tushar Travis MD T: 3:00 PM CC: PCP: Anant Cash Referring: Anant Cash This document was completed utilizing speech recognition software. Grammatical errors, random word in sertions, pronoun errors, and incomplete sentences are an occasional consequence of this system due t o software limitations, ambient noise, and hardware issues. Any formal questions or concerns about th e content, text or information contained within the body of this dictation should be directly address ed to the provider for clarification.
== END 2024-09-13 23:59 | disposition home or self-care (01) ==
LOC: SCTC 13:54
PROVIDERS: PCP Student in an Organized Health Care Education/Training Program; Referring Provider Student in an Organized Health Care Education/Training Program; Visit Provider Internal Medicine Hematology & Oncology
DX: C91.10 Chronic lymphocytic leukemia of B-cell type not having achieved remission (principal); D53.9 Nutritional anemia, unspecified; F79 Unspecified intellectual disabilities; I13.0 Hypertensive heart and chronic kidney disease with heart failure and stage 1 through stage 4 chronic kidney disease, or unspecified chronic kidney disease; I50.9 Heart failure, unspecified; N18.9 Chronic kidney disease, unspecified
CPT/HCPCS: Q3014

== ENCOUNTER → 2024-09-02 | Outpatient (CLI) | payer MEDICARE, MEDICAID, SELFPAY ==
[2024-09-02 16:43] LABS: Basophils # (Auto) 0.1 Thou/mm3 (0.0-0.2); Basophils % (Auto) 0 % (0-2.5); Eosinophils # (Auto) 0.1 Thou/mm3 (0.0-0.5); Eosinophils % (Auto) 0 % (0-10); Hematocrit 24.9 % (36.0-46.0); Immature Granulocytes % (Auto) 1 % (0-0); Immature Granulocytes Auto 0.25 Thou/mm3 (0.00-0.00); Lymphocytes # (Auto) 17.1 Thou/mm3 (1.0-4.8); Lymphocytes % (Auto) 76 % (10-50); Mean Corpuscular HGB Conc 32.5 g/dl (31.0-37.0); Mean Corpuscular Hemoglobin 34.2 pg (25.0-35.0); Mean Corpuscular Volume 105 fL (80-100); Monocytes # (Auto) 0.8 Thou/mm3 (0.0-0.8); Monocytes % (Auto) 3 % (0-12); Neutrophils # (Auto) 4.2 Thou/mm3 (1.8-7.7); Neutrophils % (Auto) 19 % (37-80); Nucleated Red Blood Cell # 0.04 Thou/mm3 (0.00-0.00); Nucleated Red Blood Cell % 0 /100 WBC (0); Platelet Count 440 Thou/mm3 (140-440); RDW Standard Deviation 78.4 fL (36.4-46.3); Red Blood Count 2.37 Miln/mm3 (4.00-5.20); White Blood Count 22.4 Thou/mm3 (3.6-11.0)
[2024-09-02 16:53] LABS: Hemoglobin 8.1 g/dL (12.0-16.0)
[2024-09-02 17:11] LABS: Alanine Aminotransferase 12 U/L (10-49); Albumin, Serum 4.3 gm/dL (3.4-4.8); Albumin/Globulin Ratio 1.7 (1.2-2.2); Alkaline Phosphatase 136 U/L (46-116); Anion Gap 12 (7-16); Aspartate Amino Transferase 14 U/L (0-34); BUN/Creatinine Ratio 41 Ratio (12-20); Bilirubin,Total 0.5 mg/dL (0.3-1.2); Calcium 9.7 mg/dL (8.3-10.6); Calcium (Corrected) 9.7 mg/dL (8.5-10.1); Carbon Dioxide 30.8 mMol/L (20.0-31.0); Chloride 97 mMol/L (98-107); Creatinine (Component) 2.7 mg/dL (0.6-1.3); Globulin 2.5 gm/dL (2.3-3.5); Glucose 157 mg/dL (74-106); Osmolality,Calculated 317 (275-295); Potassium 3.2 mMol/L (3.4-5.1); Sodium 140 mMol/L (136-145); Total Protein 6.8 gm/dL (5.7-8.2); eGFR 18 See Note
[2024-09-02 17:13] LABS: Blood Urea Nitrogen 111 mg/dL (9-23)
[2024-09-02 17:53] LABS: Path Review Blood Smear Sent to Pathologist
== END | disposition home or self-care (01) ==
PROVIDERS: PCP Student in an Organized Health Care Education/Training Program; Referring Provider Internal Medicine Hematology & Oncology; Visit Provider Internal Medicine Hematology & Oncology
DX: D53.1 Other megaloblastic anemias, not elsewhere classified (principal); C91.10 Chronic lymphocytic leukemia of B-cell type not having achieved remission
CPT/HCPCS: 36415; 80053; 85025

== ENCOUNTER → 2024-10-02 | Outpatient (CLI) | payer MEDICARE, MEDICAID, SELFPAY ==
[2024-10-02 15:14] LABS: Collection Type, Urine Clean Catch
[2024-10-02 16:30] LABS: Basophils # (Auto) 0.1 Thou/mm3 (0.0-0.2); Basophils % (Auto) 0 % (0-2.5); Eosinophils # (Auto) 0.1 Thou/mm3 (0.0-0.5); Eosinophils % (Auto) 0 % (0-10); Hematocrit 21.5 % (36.0-46.0); Immature Granulocytes % (Auto) 2 % (0-0); Immature Granulocytes Auto 0.29 Thou/mm3 (0.00-0.00); Lymphocytes # (Auto) 13.3 Thou/mm3 (1.0-4.8); Lymphocytes % (Auto) 70 % (10-50); Mean Corpuscular HGB Conc 32.6 g/dl (31.0-37.0); Mean Corpuscular Hemoglobin 35.5 pg (25.0-35.0); Mean Corpuscular Volume 109 fL (80-100); Monocytes # (Auto) 0.8 Thou/mm3 (0.0-0.8); Monocytes % (Auto) 4 % (0-12); Neutrophils # (Auto) 4.5 Thou/mm3 (1.8-7.7); Neutrophils % (Auto) 24 % (37-80); Nucleated Red Blood Cell # 0.03 Thou/mm3 (0.00-0.00); Nucleated Red Blood Cell % 0 /100 WBC (0); Platelet Count 306 Thou/mm3 (140-440); RDW Standard Deviation 82.3 fL (36.4-46.3); Red Blood Count 1.97 Miln/mm3 (4.00-5.20); White Blood Count 19.1 Thou/mm3 (3.6-11.0)
[2024-10-02 16:48] LABS: Bilirubin,Urine Negative (Negative); Blood,Urine Negative (Negative); Clarity,Urine Clear (Clear/Hazy); Color,Urine Lt-Yellow (Lt Yel-Yel); Glucose, Urine Negative (Negative); Hyaline Casts,Urine 1 /hpf (0-1); Ketones,Urine Negative (Negative); Leukocyte Esterase,Urine Negative (Negative); Nitrite,Urine Negative (Negative); PH,Urine 6.5 (5.0-7.0); Protein,Urine Negative (Neg - Trace); RBC,Urine 1 /hpf (0-3); Specific Gravity,Urine 1.011 (1.001-1.035); Squamous Epithelial Cell,Urine 3 /hpf (0-5); Urobilinogen,Urine Negative mg/dL (0.0-1.0); WBC,Urine 1 /hpf (0-5)
[2024-10-02 17:08] LABS: Iron 69 mcg/dL (50-170); Percent Iron Saturation 24 % (20-55); Total Iron Binding Capacity 287 mcg/dL (250-425); Unsaturated Iron Binding 218 (225-295)
[2024-10-02 17:18] LABS: Albumin, Serum 3.9 gm/dL (3.4-4.8); Anion Gap 18 (7-16); BUN/Creatinine Ratio 31 Ratio (12-20); Blood Urea Nitrogen 88 mg/dL (9-23); Calcium 8.8 mg/dL (8.3-10.6); Calcium (Corrected) 8.9 mg/dL (8.5-10.1); Carbon Dioxide 25.7 mMol/L (20.0-31.0); Chloride 98 mMol/L (98-107); Creatinine (Component) 2.8 mg/dL (0.6-1.3); Glucose 130 mg/dL (74-106); Osmolality,Calculated 312 (275-295); Potassium 3.4 mMol/L (3.4-5.1); Sodium 142 mMol/L (136-145); eGFR 17 See Note
== END | disposition home or self-care (01) ==
LOC: COPL 14:24
PROVIDERS: PCP Student in an Organized Health Care Education/Training Program; Referring Provider Internal Medicine Nephrology; Visit Provider Internal Medicine Nephrology
DX: N18.4 Chronic kidney disease, stage 4 (severe) (principal); D63.1 Anemia in chronic kidney disease; I50.9 Heart failure, unspecified; N93.9 Abnormal uterine and vaginal bleeding, unspecified
CPT/HCPCS: 36415; 80069; 81001; 83540; 83550; 85025

== ENCOUNTER → 2024-10-14 | Outpatient (CLI) | payer MEDICARE, MEDICAID, SELFPAY ==
[2024-10-14 09:35] LABS: Flow Cytometry* See Sep Rpt
[2024-10-14 10:03] LABS: Collection Type, Urine Clean Catch
[2024-10-14 10:27] LABS: Basophils % (Auto) 0 % (0-2.5); Eosinophils % (Auto) 0 % (0-10); Hematocrit 22.8 % (36.0-46.0); Immature Granulocytes % (Auto) 2 % (0-0); Immature Granulocytes Auto 0.42 Thou/mm3 (0.00-0.00); Lymphocytes # (Auto) 11.5 Thou/mm3 (1.0-4.8); Lymphocytes % (Auto) 59 % (10-50); Mean Corpuscular Hemoglobin 35.6 pg (25.0-35.0); Mean Corpuscular Volume 111 fL (80-100); Monocytes # (Auto) 0.7 Thou/mm3 (0.0-0.8); Monocytes % (Auto) 3 % (0-12); Neutrophils % (Auto) 36 % (37-80); Nucleated Red Blood Cell % 0 /100 WBC (0); Platelet Count 327 Thou/mm3 (140-440); Red Blood Count 2.05 Miln/mm3 (4.00-5.20); White Blood Count 19.6 Thou/mm3 (3.6-11.0)
[2024-10-14 10:45] LABS: Bacteria,Urine Rare; Bilirubin,Urine Negative (Negative); Blood,Urine Negative (Negative); Clarity,Urine Clear (Clear/Hazy); Color,Urine Colorless (Lt Yel-Yel); Glucose, Urine Negative (Negative); Ketones,Urine Negative (Negative); Leukocyte Esterase,Urine Negative (Negative); Nitrite,Urine Negative (Negative); PH,Urine 6.5 (5.0-7.0); Protein,Urine Negative (Neg - Trace); RBC,Urine < 1 /hpf (0-3); Squamous Epithelial Cell,Urine 5 /hpf (0-5); Urobilinogen,Urine Negative mg/dL (0.0-1.0); WBC,Urine < 1 /hpf (0-5)
[2024-10-14 11:06] LABS: Alanine Aminotransferase 15 U/L (10-49); Alkaline Phosphatase 137 U/L (46-116); Anion Gap 7 (7-16); Aspartate Amino Transferase 16 U/L (0-34); BUN/Creatinine Ratio 30 Ratio (12-20); Bilirubin,Total 0.6 mg/dL (0.3-1.2); Blood Urea Nitrogen 67 mg/dL (9-23); Carbon Dioxide 26.7 mMol/L (20.0-31.0); Chloride 109 mMol/L (98-107); Creatinine (Component) 2.2 mg/dL (0.6-1.3); Glucose 96 mg/dL (74-106); LDH (Lactate Dehydrogenase) 182 U/L (120-246); Osmolality,Calculated 304 (275-295); Phosphorous 4.5 mg/dL (2.4-5.1); Potassium 4.4 mMol/L (3.4-5.1); Sodium 143 mMol/L (136-145); eGFR 23 See Note
[2024-10-14 11:16] LABS: Vitamin B12 304 pg/mL (211-911); Vitamin D 25 Hydroxy Total 16.5 ng/mL (7.3-40.2)
[2024-10-14 11:38] LABS: Hemoglobin 7.3 g/dL (12.0-16.0)
[2024-10-14 11:44] LABS: Ferritin 629 ng/mL (7.3-270.7); Iron 83 mcg/dL (50-170); Percent Iron Saturation 29 % (20-55); Total Iron Binding Capacity 280 mcg/dL (250-425); Unsaturated Iron Binding 197 (225-295)
[2024-10-21 07:03] LABS: Haptoglobin* 117 mg/dL (43-212)
== END | disposition home or self-care (01) ==
LOC: COPL 09:07
PROVIDERS: PCP Registered Nurse Community Health; Referring Provider Internal Medicine Hematology & Oncology; Visit Provider Internal Medicine Nephrology
DX: N18.4 Chronic kidney disease, stage 4 (severe) (principal); D63.1 Anemia in chronic kidney disease; E55.9 Vitamin D deficiency, unspecified; C91.10 Chronic lymphocytic leukemia of B-cell type not having achieved remission; D53.1 Other megaloblastic anemias, not elsewhere classified
CPT/HCPCS: 36415; 80053; 81001; 82306; 82607; 82728; 82746; 83010; 83540; 83550; 83615; 83970; 84100; 85025

== ENCOUNTER → 2024-10-29 | Outpatient (CLI) | payer MEDICARE, MEDICAID, SELFPAY ==
[2024-10-29 16:51] LABS: Basophils # (Auto) 0.1 Thou/mm3 (0.0-0.2); Basophils % (Auto) 1 % (0-2.5); Eosinophils % (Auto) 0 % (0-10); Hematocrit 26.7 % (36.0-46.0); Immature Granulocytes % (Auto) 3 % (0-0); Immature Granulocytes Auto 0.46 Thou/mm3 (0.00-0.00); Lymphocytes # (Auto) 8.4 Thou/mm3 (1.0-4.8); Lymphocytes % (Auto) 57 % (10-50); Mean Corpuscular Hemoglobin 34.5 pg (25.0-35.0); Mean Corpuscular Volume 105 fL (80-100); Monocytes # (Auto) 0.8 Thou/mm3 (0.0-0.8); Monocytes % (Auto) 5 % (0-12); Neutrophils # (Auto) 5.1 Thou/mm3 (1.8-7.7); Neutrophils % (Auto) 35 % (37-80); Nucleated Red Blood Cell # 0.05 Thou/mm3 (0.00-0.00); Nucleated Red Blood Cell % 0 /100 WBC (0); Platelet Count 291 Thou/mm3 (140-440); RDW Standard Deviation 78.6 fL (36.4-46.3); Red Blood Count 2.55 Miln/mm3 (4.00-5.20); White Blood Count 14.9 Thou/mm3 (3.6-11.0)
[2024-10-29 17:05] LABS: Hemoglobin 8.8 g/dL (12.0-16.0)
[2024-10-29 17:11] LABS: Parathyroid Hormone Intact 198.5 pg/ml (18.5-88.0)
[2024-10-29 17:12] LABS: Albumin, Serum 4.1 gm/dL (3.4-4.8); Anion Gap 11 (7-16); BUN/Creatinine Ratio 18 Ratio (12-20); Blood Urea Nitrogen 37 mg/dL (9-23); Calcium 9.1 mg/dL (8.3-10.6); Calcium (Corrected) 9.1 mg/dL (8.5-10.1); Carbon Dioxide 23.7 mMol/L (20.0-31.0); Chloride 105 mMol/L (98-107); Creatinine (Component) 2.1 mg/dL (0.6-1.3); Glucose 88 mg/dL (74-106); Iron 41 mcg/dL (50-170); Osmolality,Calculated 287 (275-295); Percent Iron Saturation 16 % (20-55); Phosphorous 3.3 mg/dL (2.4-5.1); Potassium 4.2 mMol/L (3.4-5.1); Sodium 140 mMol/L (136-145); Total Iron Binding Capacity 256 mcg/dL (250-425); Unsaturated Iron Binding 215 (225-295); eGFR 24 See Note
== END | disposition home or self-care (01) ==
LOC: COPL 15:58
PROVIDERS: PCP Student in an Organized Health Care Education/Training Program; Referring Provider Internal Medicine Nephrology; Visit Provider Internal Medicine Nephrology
DX: N18.4 Chronic kidney disease, stage 4 (severe) (principal); D63.1 Anemia in chronic kidney disease; I50.9 Heart failure, unspecified; N93.9 Abnormal uterine and vaginal bleeding, unspecified
CPT/HCPCS: 36415; 80069; 83540; 83550; 83970; 85025

== ENCOUNTER 2024-11-06 14:47 | Outpatient (RCR) | payer MEDICARE, MEDICAID, SELFPAY ==
[2024-10-15 13:12] LABS: Basophils # (Auto) 0.1 Thou/mm3 (0.0-0.2); Basophils % (Auto) 0 % (0-2.5); Eosinophils % (Auto) 0 % (0-10); Hematocrit 22.1 % (36.0-46.0); Immature Granulocytes % (Auto) 2 % (0-0); Immature Granulocytes Auto 0.46 Thou/mm3 (0.00-0.00); Lymphocytes # (Auto) 12.5 Thou/mm3 (1.0-4.8); Lymphocytes % (Auto) 63 % (10-50); Mean Corpuscular HGB Conc 31.7 g/dl (31.0-37.0); Mean Corpuscular Hemoglobin 35.5 pg (25.0-35.0); Mean Corpuscular Volume 112 fL (80-100); Monocytes # (Auto) 0.8 Thou/mm3 (0.0-0.8); Monocytes % (Auto) 4 % (0-12); Neutrophils # (Auto) 6.1 Thou/mm3 (1.8-7.7); Neutrophils % (Auto) 31 % (37-80); Nucleated Red Blood Cell % 0 /100 WBC (0); Platelet Count 313 Thou/mm3 (140-440); RDW Standard Deviation 86.9 fL (36.4-46.3); Red Blood Count 1.97 Miln/mm3 (4.00-5.20); White Blood Count 19.8 Thou/mm3 (3.6-11.0)
--- NOTE | 2024-10-15 16:38 | CTCFLWUP_ITS ---
Patient: DIPTI SPEARS : 1950 Page 2 of 2 FOLLOW UP NOTE DATE OF SERVICE: 10/15/2024 NAME: DIPTI SPEARS ACCOUNT: [id number] : 1950 AGE: 74 INTERVAL HISTORY: 74 yr old women with mental retardation . patient had injuries on her hand . she develeoped cellulitis . she still have knukle which is very red. Patient was admitted to the hospital and received IV antibiotics. During the process patient has lost about 30 pounds of weight. Of note patient is mentally delayed and do not complain. Patient deficiency family were not aware about the hand injury until later. Per sister patient is improving. Patient was also noted to have worsening renal failure. Patient was treated with acalabrutinib but was unable to tolerate requiring heart hospitalization. Patient is on not on any treatment for her CLL. Patient is planned for procedure on her hand Patient's sister do not want to undergo bone marrow procedure. TREATMENT HISTORY: Care?Plan Start?Date Cycle Day Intent HISTORY OF PRESENT ILLNESS: Dipti Spears is a 74-year-old ENG speaking female with mental retardation was recently found to have leukocytosis and lymphocytosis. She is referred to hematology clinic for further workup. 02/02/2023: WBC 16.0, absolute lymphocyte count 8.9, hemoglobin 8.8, MCV 105, platelets 281,000. 04/07/2023: WBC 18.0, absolute lymphocyte count 11.0, hemoglobin 8.2, MCV 104, platelets 356,000, creatinine 2.3, EGFR 22, albumin 4.4. 11/17/2023: WBC 21.0, lymphocytes 13.8, hemoglobin 8.6, MCV 104, platelets 358,000. 12/26/2023: Flow cytometry of the peripheral blood 12/26/2023: Neotype CLL FISH panel I GVH mutation analysis 03/28/2024: WBC 22.9, ALC 16.7, hemoglobin 8.1, MCV 108, platelet count 316,000. 04/26/2024: WBC 24.3, ALC 17.8, hemoglobin 7.2, MCV 107, platelets 324,000. Creatinine 1.9. OTHER MEDICAL HISTORY/CONDITIONS: Developmentally disabled Anemia CKD- Dr. Valenzuela HTN CHF - Dr. Ruiz Atrial fibrillation CAD Coronary?artery?bypass?graft FAMILY HISTORY: Mother:?Stomach-?dx?60's Sibling: Brother -brain-dx50'; sister -breast - dx 65 SOCIAL HISTORY: Occupational?History:?Disabled Education?Level:?Completed something less than 8th grade Marital?Status:?Single Tobacco?Use:?Denies ETOH?Use:?Denies Drug?Note:?Denies Social?History?Note:?Lives?with?sister DIRECTOR DATA HISTORY: Menarche?-?Age:?13 Menopause:?50's :?0 Live?Births:?0 MEDICATIONS: 1. Aquaphor OriginaL - 41 % 1 As directed 2. busPIRone - 5 mg 1 tab Twice a Day 3. calcitriol - 0.25 mcg 1 Capsule As directed 4. carvedilol - 3.125 mg 1 tab Twice a Day 5. digoxin - 125 mcg 1 tab Daily 6. fluconazole - 200 mg 1 tab Daily 7. furosemide - 40 mg 1 tab Twice a Day 8. loratadine - 10 mg 1 tab Daily 9. metOLazone - 2.5 mg 1 tab Three times a day 10. ondansetron HCl - 4 mg 1 tab 1 tab po every 8 hours prn nausea 11. spironolactone - 25 mg 0.5 tab Daily 12. Xarelto - 10 mg 1 tab Daily 13. Zaroxolyn - 2.5 mg 1 tab As directed?Pal[facility]ra Meds? Medications Last Reconciled by Qiana Fernandez MA on 10/15/2024 ALLERGIES: Penicillins REVIEW OF SYSTEMS: A complete 14-point review of systems was performed and is negative except as noted in interval history. PHYSICAL EXAMINATION:?CloneBlock PE? VITAL SIGNS: Temperature?98.4, B/P?114/66, Oxygen?Saturation?99% Weight?145?lbs PAIN: 0 - No pain ECOG Performance Status: 2 - Symptomatic; ambulatory; capable of self-care; >50% of waking hrs. not in bed This is a suboptimal examination due to noncooperation from Ms. Spears who has mental retardation. LABORATORY DATA: I have personally reviewed and interpreted each of the patient?s relevant lab tests, abnormal findings are below: Date 10/15/24 ??WHITE?BLOOD?COUNT?(Thou/mm3) 19.8?H ??RED?BLOOD?COUNT?(Miln/mm3) 1.97?LL ??HEMOGLOBIN?(gm/dl) 7.0?L ??HEMATOCRIT?(%) 22.1?L ??PLATELET?COUNT?(Thou/mm3) 313 ??NEUTROPHILS?%,?AUTO?(%) 31?L ??LYMPH?%,?AUTO?(%) 63?H ??NEUTROPHILS,?AUTO?(Thou/mm3) 6.1 ASSESSMENT/PLAN:?Mae Travis Assessment/Plan? 1. 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 Dr. Kadeem Calvert cannot do the bone marrow biopsy in the OR since CT scanner is not available in the OR. Patient's sister does not want bone marrow biopsy to be done under conscious sedation stating that Ms. Spears would not be able to cooperate. Patient was started on acalabrutinib and was unable to tolerate it I discussed with the sister that we can restart ibrutinib at 50 mg and see how she does. Will wait until patient is seen by hand surgeon and infection is treated Patient lost 30 pound since last 4 weeks. She have cellulistis on hand . Planned for procedure on her hand Patient have not completed pet scan or ct scan ? need to evaluate to look for LNS Patient completed antibiotics Patient is high risk for anesthesia Patient was seen by Dr. Jamaica Giles and recommendation was to start her on erythropoietin. I will also continue transfusions Advised to change treatment from Xarelto to Eliquis patient's sister states that medicine was started by her pantry chef and she will follow his instructions. Advised to discuss with him that Xarelto is not a good option as patient's GFR has dropped below 50 and is now between 15-20 2. Macrocytic anemia, iron saturation 20%, B12 372, folate 23.71, ferritin 569., LDH 202, direct bili 0.2 and total bili 0.4. Direct antiglobulin test negative. No evidence for hemolytic anemia. 3. Chronic renal insufficiency being followed by Dr. Cornejo. 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 Mental retardation 5. Remote history of seizures 6. Congestive heart failure currently being followed by Dr. Kaplan 7. Hypertension CBC CMP transfusion and erythropoietin RETURN TO CLINIC: I will see her back in the clinic in 3 months. BILLING AND COMPLIANCE: I reviewed external records from providers outside my specialty as summarized above. I spent a total of 50 minutes on this patient?s care on the day of their visit excluding time spent related to any billed procedures. This time includes time spent with the patient as well as time spent documenting in the medical record, reviewing patients records and tests, obtaining history, placing orders, communicating with other healthcare professionals, counseling the patient, family or caregiver, and/or care coordination for the diagnoses above. Electronically Signed by: Tushar Travis MD T: 4:35 PM CC: PCP: Awa Fox Referring: Awa Fox This document was completed utilizing speech recognition software. Grammatical errors, random word insertions, pronoun errors, and incomplete sentences are an occasional consequence of this system due to software limitations, ambient noise, and hardware issues. Any formal questions or concerns about the content, text or information contained within the body of this dictation should be directly addressed to the provider for clarification.
== END 2024-11-11 23:59 | disposition home or self-care (01) ==
LOC: SCTC 14:47
PROVIDERS: PCP Student in an Organized Health Care Education/Training Program; Referring Provider Registered Nurse Community Health; Visit Provider Internal Medicine Hematology & Oncology
DX: C91.10 Chronic lymphocytic leukemia of B-cell type not having achieved remission (principal); I13.10 Hypertensive heart and chronic kidney disease without heart failure, with stage 1 through stage 4 chronic kidney disease, or unspecified chronic kidney disease; N18.9 Chronic kidney disease, unspecified; F79 Unspecified intellectual disabilities; L03.119 Cellulitis of unspecified part of limb; D50.9 Iron deficiency anemia, unspecified
CPT/HCPCS: 36415; 36430; 85025; 86850; 86900; 86901; 86923; 96372; 99212; P9016; Q5106; G0463

== ENCOUNTER 2024-11-13 14:19 | Outpatient (RCR) | payer MEDICARE, MEDICAID, SELFPAY | END 2024-12-11 23:59 | disposition home or self-care (01) | LOC: SCTC 14:19 | PROVIDERS: PCP Student in an Organized Health Care Education/Training Program; Referring Provider Student in an Organized Health Care Education/Training Program; Visit Provider Internal Medicine Hematology & Oncology | DX: I13.0 Hypertensive heart and chronic kidney disease with heart failure and stage 1 through stage 4 chronic kidney disease, or unspecified chronic kidney disease (principal); I50.9 Heart failure, unspecified; N18.9 Chronic kidney disease, unspecified; C91.10 Chronic lymphocytic leukemia of B-cell type not having achieved remission; D53.9 Nutritional anemia, unspecified; R63.4 Abnormal weight loss; Z68.27 Body mass index [BMI] 27.0-27.9, adult; L03.119 Cellulitis of unspecified part of limb; F79 Unspecified intellectual disabilities | CPT/HCPCS: 96372; Q5106 ==

== ENCOUNTER → 2024-12-03 | Outpatient (CLI) | payer MEDICARE, MEDICAID, SELFPAY ==
[2024-12-03 16:46] LABS: Basophils # (Auto) 0.1 Thou/mm3 (0.0-0.2); Basophils % (Auto) 1 % (0-2.5); Eosinophils # (Auto) 0.1 Thou/mm3 (0.0-0.5); Eosinophils % (Auto) 1 % (0-10); Hematocrit 28.4 % (36.0-46.0); Hemoglobin 9.2 g/dL (12.0-16.0); Immature Granulocytes % (Auto) 2 % (0-0); Immature Granulocytes Auto 0.22 Thou/mm3 (0.00-0.00); Lymphocytes # (Auto) 8.5 Thou/mm3 (1.0-4.8); Lymphocytes % (Auto) 61 % (10-50); Mean Corpuscular HGB Conc 32.4 g/dl (31.0-37.0); Mean Corpuscular Hemoglobin 34.5 pg (25.0-35.0); Mean Corpuscular Volume 106 fL (80-100); Monocytes # (Auto) 0.8 Thou/mm3 (0.0-0.8); Monocytes % (Auto) 6 % (0-12); Neutrophils # (Auto) 4.2 Thou/mm3 (1.8-7.7); Neutrophils % (Auto) 30 % (37-80); Nucleated Red Blood Cell % 0 /100 WBC (0); Platelet Count 232 Thou/mm3 (140-440); RDW Standard Deviation 83.2 fL (36.4-46.3); Red Blood Count 2.67 Miln/mm3 (4.00-5.20); White Blood Count 13.9 Thou/mm3 (3.6-11.0)
== END | disposition home or self-care (01) ==
LOC: SCTO 15:55
PROVIDERS: PCP Student in an Organized Health Care Education/Training Program; Referring Provider Internal Medicine Hematology & Oncology; Visit Provider Internal Medicine Hematology & Oncology
DX: D53.1 Other megaloblastic anemias, not elsewhere classified (principal); C91.10 Chronic lymphocytic leukemia of B-cell type not having achieved remission
CPT/HCPCS: 36415; 85025

== ENCOUNTER → 2025-02-17 | Outpatient (CLI) | payer MEDICARE, MEDICAID, SELFPAY ==
[2025-02-17 12:16] LABS: Basophils # (Auto) 0.1 Thou/mm3 (0.0-0.2); Basophils % (Auto) 1 % (0-2.5); Eosinophils # (Auto) 0.1 Thou/mm3 (0.0-0.5); Eosinophils % (Auto) 1 % (0-10); Hematocrit 26.9 % (36.0-46.0); Immature Granulocytes Auto 0.20 Thou/mm3 (0.00-0.00); Lymphocytes # (Auto) 8.1 Thou/mm3 (1.0-4.8); Lymphocytes % (Auto) 63 % (10-50); Mean Corpuscular HGB Conc 32.7 g/dl (31.0-37.0); Mean Corpuscular Hemoglobin 36.4 pg (25.0-35.0); Mean Corpuscular Volume 111 fL (80-100); Monocytes # (Auto) 0.6 Thou/mm3 (0.0-0.8); Monocytes % (Auto) 5 % (0-12); Neutrophils # (Auto) 3.8 Thou/mm3 (1.8-7.7); Neutrophils % (Auto) 30 % (37-80); Nucleated Red Blood Cell # 0.00 Thou/mm3 (0.00-0.00); Nucleated Red Blood Cell % 0 /100 WBC (0); Platelet Count 229 Thou/mm3 (140-440); RDW Standard Deviation 97.3 fL (36.4-46.3); Red Blood Count 2.42 Miln/mm3 (4.00-5.20); White Blood Count 12.8 Thou/mm3 (3.6-11.0)
[2025-02-17 12:25] LABS: Alanine Aminotransferase 19 U/L (10-49); Albumin, Serum 3.9 gm/dL (3.4-4.8); Albumin/Globulin Ratio 2.0 (1.2-2.2); Alkaline Phosphatase 100 U/L (46-116); Anion Gap 12 (7-16); Aspartate Amino Transferase 23 U/L (0-34); BUN/Creatinine Ratio 19 Ratio (12-20); Bilirubin,Total 1.0 mg/dL (0.3-1.2); Blood Urea Nitrogen 45 mg/dL (9-23); Calcium 9.1 mg/dL (8.3-10.6); Calcium (Corrected) 9.2 mg/dL (8.5-10.1); Carbon Dioxide 26.8 mMol/L (20.0-31.0); Chloride 109 mMol/L (98-107); Creatinine (Component) 2.4 mg/dL (0.6-1.3); Globulin 2.0 gm/dL (2.3-3.5); Glucose 98 mg/dL (74-106); Osmolality,Calculated 305 (275-295); Potassium 4.2 mMol/L (3.4-5.1); Sodium 148 mMol/L (136-145); Total Protein 5.9 gm/dL (5.7-8.2); eGFR 21 See Note
[2025-02-17 12:30] LABS: Hemoglobin 8.8 g/dL (12.0-16.0)
== END | disposition home or self-care (01) ==
LOC: COPL 10:57 → SCTO 11:02
PROVIDERS: PCP Student in an Organized Health Care Education/Training Program; Referring Provider Internal Medicine Hematology & Oncology; Visit Provider Internal Medicine Hematology & Oncology
DX: D53.1 Other megaloblastic anemias, not elsewhere classified (principal); C91.10 Chronic lymphocytic leukemia of B-cell type not having achieved remission
CPT/HCPCS: 36415; 80053; 85025

== ENCOUNTER 2025-02-20 15:44 | Outpatient (RCR) | payer MEDICARE, MEDICAID, SELFPAY ==
--- NOTE | 2025-03-03 01:56 | CTCFLWUP_ITS ---
Patient: DIPTI SPEARS : 1950 Page 4 of 6 FOLLOW UP NOTE DATE OF SERVICE: 02/20/2025 NAME: DIPTI SPEARS ACCOUNT: [id number] : 1950 AGE: 74 INTERVAL HISTORY: 74 yr old women with mental retardation . Patient was treated with acalabrutinib but was unable to tolerate requiring heart hospitalization. Patient is on not on any treatment for her CLL. Patient's sister do not want to undergo bone marrow procedure. HISTORY OF PRESENT ILLNESS: Dipti Spears is a 74-year-old ENG speaking female with mental retardation was recently found to have leukocytosis and lymphocytosis. She is referred to hematology clinic for further workup. 02/02/2023: WBC 16.0, absolute lymphocyte count 8.9, hemoglobin 8.8, MCV 105, platelets 281,000. 04/07/2023: WBC 18.0, absolute lymphocyte count 11.0, hemoglobin 8.2, MCV 104, platelets 356,000, creatinine 2.3, EGFR 22, albumin 4.4. 11/17/2023: WBC 21.0, lymphocytes 13.8, hemoglobin 8.6, MCV 104, platelets 358,000. 12/26/2023: Flow cytometry of the peripheral blood 12/26/2023: Neotype CLL FISH panel I GVH mutation analysis 03/28/2024: WBC 22.9, ALC 16.7, hemoglobin 8.1, MCV 108, platelet count 316,000. 04/26/2024: WBC 24.3, ALC 17.8, hemoglobin 7.2, MCV 107, platelets 324,000. Creatinine 1.9. OTHER MEDICAL HISTORY/CONDITIONS: Developmentally disabled Anemia CKD- Dr. Valenzuela HTN CHF - Dr. 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 allopurinol - 100 mg 1 tab Every other day 2. calcitriol - 0.25 mcg 1 Capsule As directed 3. carvedilol - 3.125 mg 1 tab Twice a Day 4. digoxin - 125 mcg 1 tab Daily 5. Eliquis - 2.5 mg 1 tab Twice a Day 6. furosemide - 40 mg 1 tab Twice a Day Medications Last Reconciled by Qiana Dent MD on 02/20/2025 ALLERGIES: Penicillins REVIEW OF SYSTEMS: A complete 14-point review of systems was performed and is negative except as noted in interval history. PHYSICAL EXAMINATION: VITAL SIGNS: Temperature?98.3, B/P?102/62, Oxygen?Saturation?98% Weight?150?lbs PAIN: 0 - No pain ECOG Performance Status: 3 - Symptomatic; limited self-care; spends >50% of time in bed, not bedridden This is a suboptimal examination due to noncooperation from Ms. Spears who has mental retardation. LABORATORY DATA: I have personally reviewed and interpreted each of the patient?s relevant lab tests, abnormal findings are below: Date 10/29/24 12/03/24 02/17/25 ??WHITE?BLOOD?COUNT?(Thou/mm3) 14.9?H 13.9?H 12.8?H ??RED?BLOOD?COUNT?(Miln/mm3) 2.55?L 2.67?L 2.42?L ??HEMOGLOBIN?(gm/dl) 8.8?L 9.2?L 8.8?L ??HEMATOCRIT?(%) 26.7?L 28.4?L 26.9?L ??PLATELET?COUNT?(Thou/mm3) 291 232 229 ??NEUTROPHILS?%,?AUTO?(%) 35?L 30?L 30?L ??LYMPH?%,?AUTO?(%) 57?H 61?H 63?H ??NEUTROPHILS,?AUTO?(Thou/mm3) 5.1 4.2 3.8 ??GLUCOSE,RANDOM?(mg/dL) ? ? 98 ??BLOOD?UREA?NITROGEN?(mg/dL) ? ? 45?H ??CREATININE?(mg/dL) ? ? 2.40?H ??SODIUM?(mmol/L) ? ? 148?H ??POTASSIUM?(mmol/L) ? ? 4.2 ??CHLORIDE?(mmol/L) ? ? 109?H ??CrCl?(CandG)?(ml/min) ? ? 18.22 ??AST/SGOT?(Unit/L) ? ? 23 ??ALT/SGPT?(Unit/L) ? ? 19 ??ALKALINE?PHOSPHATASE?(Unit/L) ? ? 100 ??BILIRUBIN,?TOTAL?(mg/dL) ? ? 1.0 ??PROTEIN?TOTAL?(gm/dl) ? ? 5.9 ??ALBUMIN,?SERUM?(gm/dl) ? ? 3.9 ??GLOBULIN?(gm/dl) ? ? 2.0?L ??ALBUMIN/GLOBULIN?RATIO ? ? 2.0 ??CALCIUM,?SERUM?(mg/dL) ? ? 9.1 ??CALCIUM?SERUM?(CORRECTED)?(mg/dL) ? ? 9.2 ASSESSMENT/PLAN: 1. 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 Dr. Kadeem Calvert cannot do the bone marrow biopsy in the OR since CT scanner is not available in the OR. Patient's sister does not want bone marrow biopsy to be done under conscious sedation stating that Ms. Spears would not be able to cooperate. Patient was started on acalabrutinib and was unable to tolerate it Patient is doing well clinically and do not have elevated white cells requiring immediate treatment ANC stable Continue to closely monitor No intervention needed at this time regarding CLL Patient has baseline mental retardation from cerebral palsy and do not involving her care According the sister patient is being monitored by hospital social worker and may be placed in a care home No changes since the first visit with us in the clinic Follow as needed ORDERS: Order # Description [id number] Follow Up 6 Month [id number] Iron Panel + Ferritin + Vitamin B-12 + Folic Acid; Serum + Lactate Dehydrogenase (LDH) + Assay Of Haptoglobin Quant RETURN TO CLINIC: I reviewed the diagnosis, prognosis, and recommended treatment/procedure options with the patient (and/or their legal procurement representative), including the potential benefits, risks, side effects and alternative therapies. We also discussed the option of no treatment and the possibility of clinical trial participation, if applicable. All questions were addressed, and they demonstrated understanding. They provided informed consent to proceed with the proposed plan of care. BILLING AND COMPLIANCE: I reviewed external records from providers outside my specialty as summarized above. I spent a total of 50 minutes on this patient?s care on the day of their visit excluding time spent related to any billed procedures. This time includes time spent with the patient as well as time spent documenting in the medical record, reviewing patients records and tests, obtaining history, placing orders, communicating with other healthcare professionals, counseling the patient, family or caregiver, and/or care coordination for the diagnoses above. Electronically Signed by: Tushar Travis MD T: 1:53 AM CC: PCP: Anant Cash Referring: Anant Cash This document was completed utilizing speech recognition software. Grammatical errors, random word insertions, pronoun errors, and incomplete sentences are an occasional consequence of this system due to software limitations, ambient noise, and hardware issues. Any formal questions or concerns about the content, text or information contained within the body of this dictation should be directly addressed to the provider for clarification.
== END 2025-03-13 23:59 | disposition home or self-care (01) ==
LOC: SCTC 15:44
PROVIDERS: PCP Student in an Organized Health Care Education/Training Program; Referring Provider Student in an Organized Health Care Education/Training Program; Visit Provider Internal Medicine Hematology & Oncology
DX: C91.10 Chronic lymphocytic leukemia of B-cell type not having achieved remission (principal); F79 Unspecified intellectual disabilities; G80.9 Cerebral palsy, unspecified
CPT/HCPCS: 99212; G0463

== ENCOUNTER 2025-03-26 12:38 | Emergency (ER) | payer MEDICARE, MEDICAID, SELFPAY ==
[2025-03-26 12:40] VITALS: BMI 28.3
[2025-03-26 14:00] VITALS: BP 121/57; PULSE 54; RESP 18; TEMP 37.1; O2SAT 98
--- NOTE | 2025-03-26 14:08 | XR_ITS ---
Examination: AP chest single view TECHNIQUE: AP sitting portable chest single view Date and time: March 26, 2025 1421 hours INDICATIONS: Shortness of breath leg swelling this week FINDINGS: Mild heart failure Moderate enlargement cardiac contour Prominent vascular congestion with perihilar basilar edema Moderate osteopenia IMPRESSION: Mild heart failure
--- NOTE | 2025-03-26 14:08 | EKG_ITS ---
[facility] Test Date: 2025-03-26 Pat Name: JEANETTE SPEARS Department: Room: - Gender: Female Business Intern: : 1950 Requested By: Wayne Santiago Order Number: [id number] Reading MD: Wayne Santiago Measurements Intervals [place] Rate: 56 P: AK: QRS: -48 QRSD: 160 T: 94 QT: 484 QTc: 469 Interpretive Statements ATRIAL FIBRILLATION WITH SLOW VENTRICULAR RESPONSE LEFT AXIS DEVIATION [QRS AXIS < -30] LEFT BUNDLE BRANCH BLOCK [120+ ms QRS DURATION, 80+ ms Q/S IN V1/V2, 85+ ms R IN I/aVL/V5/V6] Compared to ECG 07/02/2024 19:08:38 No significant changes /store/S0/[id number]
--- NOTE | 2025-03-26 14:14 | PD.EDADULT ---
ED General RME/HPI General Chief complaint: General Adult/Misc Complain Stated complaint: BLE SWELLING Time Seen by Provider: 03/26/25 14:06 Arrival date/time: 03/26/25 12:38 CC: Swollen legs HPI per family member ongoing for 2 weeks currently physician is on vacation, he is already on [address] of [address]ix daily per Dr Valenzuela her renal doctor. All questions answered to being answered by family member patient is stooped somewhat disheveled but has no specific complaints. Past medical history includes A-fib congestive heart failure Related Data Home Medications ?Medication ?Instructions ?Recorded ?Confirmed digoxin 125 mcg (0.125 mg) tablet 125 mcg PO EVERYOTHERDAY 07/20/20 05/08/23 magnesium oxide 400 mg (241.3 mg 400 mg PO QDAY 02/15/21 05/08/23 magnesium) tablet (MagOx) rivaroxaban 10 mg tablet (Xarelto) 10 mg PO QDAY 07/09/21 05/08/23 buspirone 5 mg tablet 5 mg BID 08/31/21 05/08/23 spironolactone 25 mg tablet 12.5 mg PO QDAY 08/31/21 05/08/23 carvedilol 3.125 mg tablet 3.125 mg PO BID 05/08/23 05/08/23 furosemide 40 mg tablet 40 mg PO QDAY 05/08/23 05/08/23 metolazone 2.5 mg tablet 2.5 mg PO 3XD 05/08/23 05/08/23 spironolactone 25 mg tablet mg 05/08/23 Previous Rx's ?Medication ?Instructions ?Recorded miconazole nitrate 2 % topical 1 applic topical BID #30 grams 07/02/24 cream potassium chloride 20 mEq oral 20 meq PO QDAY #10 ea 03/26/25 packet Allergies Allergy/AdvReac Type Severity Reaction Status Date / Time morphine Allergy Severe Rash Verified 03/26/25 12:43 Penicillins Allergy Severe Hives Verified 03/26/25 12:43 Review of Systems Review of Systems Narrative Review of Systems: GEN: No fever, no chills, no weight loss EYES: No discharge, no visual changes, no pain HEENT: No ear pain, no congestion, no sore throat PULM: No shortness of breath, no cough, no congestion CV: No chest pain, no dyspnea on exertion, no palpitations GI: No nausea, no vomiting, no diarrhea, no pain, no constipation : No frequency, no urgency, no dysuria MUSC/SKEL: No joint pain, no back pain, + leg edema SKIN: No rash PSYCH: No hallucinations, no depression HEME/LYMPH: No easy bleeding or bruising tendencies NEURO: No weakness, no headache ED Exam Narrative Physical exam: [General: Obese not in cot no acute distress Head normocephalic HEENT: Within acceptable limits Neck is supple nontender Chest equal chest rise nontender to palpation Respiratory: Clear to auscultation no wheezes crackles or rubs CV: Rate rhythm is regular no murmurs rubs or clicks Abdomen is distended secondary to body habitus soft nontender no masses positive bowel sounds all 4 quadrants Back: No CVA tenderness no spinous process tenderness from cervical spine thoracic and lumbar spine Skin: Intact no petechiae rash induration ulceration or crepitus Extremities: Moving all extremity against resistance cap refill less than 2 seconds neurosensory intact Neuro: Awake alert oriented x3 Glascow coma 15 no focal deficits] Course Course Course Narrative: Review of the laboratory results show the patient has no significant changes in her chronic renal insufficiency there are no sources of big infections. The mother states the patient is on 40 of Lasix twice a day as prescribed by Dr. Oneil, and she has a 10-day supply with a follow-up appointment with Dr Valenzuela in 6 days. At this time there is no admittable criteria patient will be discharged home to follow-up outpatient mother advised if there is shortness of breath or difficulty breathing to return the patient to the ER for further evaluation. Quality Measures none Orders Category Date Time Status EKG (ED ONLY) *Do not use* NOW Care 03/26/25 14:08 Completed EKG (ED Only) Stat Exams 03/26/25 14:08 Draft XR chest 1V Stat Exams 03/26/25 14:08 Completed B-Type Natriuretic Peptide Stat Lab 03/26/25 14:20 Completed CBC Stat Lab 03/26/25 14:20 Completed Comprehensive Metabolic Panel Stat Lab 03/26/25 14:20 Completed Drug Screen,Urine Stat Lab 03/26/25 16:44 Completed LDH (Lactate Dehydrogenase) Stat Lab 03/26/25 14:20 Completed Magnesium Stat Lab 03/26/25 14:20 Completed Partial Thromboplastin Time Stat Lab 03/26/25 14:20 Completed Prothrombin Time with INR Stat Lab 03/26/25 14:20 Completed Troponin I Stat Lab 03/26/25 14:20 Completed Urinalysis Stat Lab 03/26/25 16:44 Completed Vital Signs Vital signs: Vital Signs Temperature 98.7 F 03/26/25 14:00 Pulse Rate 54 L 03/26/25 14:00 Respiratory Rate 18 03/26/25 14:00 Blood Pressure 121/57 L 03/26/25 14:00 Pulse Oximetry (%) 98 03/26/25 14:00 Oxygen Delivery Method Room Air 03/26/25 14:00 Discharge Plan Plan Patient Disposition: HOME (Self Care) Patient condition on transfer: Stable Prescriptions/Referrals Prescriptions/Med Rec: New potassium chloride 20 mEq packet 20 meq PO QDAY Qty: 10 0RF No Action digoxin 125 mcg (0.125 mg) Tablet 125 mcg PO EVERYOTHERDAY magnesium oxide [MagOx] 400 mg (241.3 mg magnesium) Tablet 400 mg PO QDAY Xarelto 10 mg Tablet 10 mg PO QDAY buspirone 5 mg tablet 5 mg BID spironolactone 25 mg Tablet 12.5 mg PO QDAY miconazole nitrate 2 % cream 1 applic topical BID Qty: 30 0RF furosemide 40 mg tablet 40 mg PO QDAY Patient Comments: TAKE 1 TABLET BY MOUTH EVERY DAY metolazone 2.5 mg tablet 2.5 mg PO 3XD Patient Comments: TAKE 1 TABLET BY MOUTH THREE TIMES A WEEK. spironolactone 25 mg tablet Patient Comments: TAKE 1/2 TABLET BY MOUTH EVERY DAY carvedilol 3.125 mg tablet 3.125 mg PO BID Patient Comments: TAKE 1 TABLET BY MOUTH TWICE A DAY Referrals: Jennifer William FNP [Primary Care Provider] - In 1 week Problem List Clinical Impression: Bilateral edema of lower extremity Patient/Caregiver Discharge Instructions Other Activity Instructions:: Please keep your legs elevated and avoid standing for long periods of time until seen by Dr Valenzuela. If they are worsening of symptoms return the emergency room for reevaluation. Education Materials: Taking a Diuretic, ED Leg Swelling in Both Legs Print Language: Frisian Stand Alone Forms: Tala Award Info., Work/School Release, Patient Portal Info Letter RENÉE/CHIOMA Supervising Physician RENÉE/CHIOMA Supervising Physician: Wayne Alvarez ENP, MD Attestation MD Attestation The patient was seen by the midlevel practitioner. I, the co-signing physician, was present during the entire ER visit. While I did not physically examine the patient, I was available for consultation as needed. I agree with the plan and documentation. MDM Clinical Information Provided by patient and family Medical Records Reviewed [facility] Meds/Rx Considered, not Ordered None Labs/Rad/Tests considered, not Ordered None Chronic Illness/Social Conditions which may negatively complicate care or outcome(s)-explain: CHF/CAD/Cardiac illness EKG EKG Interpretation narrative: EKG performed at 1411 shows a ventricular rate of 5 6 QRS of 160 QTc of 476 is A-fib with delayed with intraocular response. When compared to an old EKG from May 2024 the rate has decreased, otherwise no significant changes. Lab Interpretation Lab(s) interpretation(s): CBC shows a mild leukocytosis of 12.6 H&H of 7.8 and 24.1 platelets of 225 note: Review of the medical records and labs show that the patient has been chronically anemic. Coags within acceptable limits CMP shows a BUN of 44 creatinine of 2.3 no other electrolyte imbalances no transaminitis or T. bili elevation note: Review of the medical records show laboratory results showing a unchanged in her BUN and creatinine at this level. BNP is elevated at 819 troponin at 0.032. Imaging Provider imaging interpretation(s): Chest x-ray as interpreted by me read by radiology shows mild congestive failure. Diagnosis Differential diagnosis: Congestive heart failure bilateral lower leg edema fluid retention. Dispositon Disposition: Discharge Home
[2025-03-26 14:28] LABS: Hematocrit 24.1 % (36.0-46.0); Mean Corpuscular HGB Conc 32.4 g/dl (31.0-37.0); Mean Corpuscular Hemoglobin 35.9 pg (25.0-35.0); Mean Corpuscular Volume 111 fL (80-100); Platelet Count 225 Thou/mm3 (140-440); RDW Standard Deviation 87.1 fL (36.4-46.3); Red Blood Count 2.17 Miln/mm3 (4.00-5.20); White Blood Count 12.6 Thou/mm3 (3.6-11.0)
[2025-03-26 14:36] LABS: Hemoglobin 7.8 g/dL (12.0-16.0)
[2025-03-26 14:44] LABS: INR 1.1 (0.9-1.3); Partial Thromboplastin Time 31.0 Seconds (22.0-36.0); Prothrombin Time 12.2 Seconds (9.0-12.2)
[2025-03-26 14:48] LABS: Alanine Aminotransferase 31 U/L (10-49); Albumin, Serum 4.0 gm/dL (3.4-4.8); Albumin/Globulin Ratio 2.1 (1.2-2.2); Alkaline Phosphatase 114 U/L (46-116); Anion Gap 11 (7-16); Aspartate Amino Transferase 21 U/L (0-34); B-Type Natriuretic Peptide 819 pg/mL (0-100); BUN/Creatinine Ratio 19 Ratio (12-20); Bilirubin,Total 0.6 mg/dL (0.3-1.2); Blood Urea Nitrogen 44 mg/dL (9-23); Calcium 9.7 mg/dL (8.3-10.6); Calcium (Corrected) 9.7 mg/dL (8.5-10.1); Carbon Dioxide 26.8 mMol/L (20.0-31.0); Chloride 105 mMol/L (98-107); Creatinine (Component) 2.3 mg/dL (0.6-1.3); Estimated Creatinine Clearance 20.8 mL/min (>60); Globulin 1.9 gm/dL (2.3-3.5); Glucose 100 mg/dL (74-106); LDH (Lactate Dehydrogenase) 239 U/L (120-246); Magnesium 1.6 mg/dL (1.6-2.6); Osmolality,Calculated 296 (275-295); Potassium 3.9 mMol/L (3.4-5.1); Sodium 143 mMol/L (136-145); Total Protein 5.9 gm/dL (5.7-8.2); Troponin I 0.032 ng/mL (0.0-0.045); eGFR 22 See Note
[2025-03-26 14:52] LABS: Band Neutrophils (Manual) 1 % (0-6); Lymphocytes (Manual) 51 % (20-44); Monocytes (Manual) 9 % (2-9); Neutrophils (Manual) 39 % (50-70)
[2025-03-26 14:53] LABS: Anisocytosis 2+; Hypochromasia 1+; Macrocytosis 1+
[2025-03-26 14:54] LABS: Polychromasia Rare
[2025-03-26 14:55] LABS: Poikilocytosis 1+
[2025-03-26 16:49] LABS: Collection Type, Urine Clean Catch
[2025-03-26 16:55] LABS: Bilirubin,Urine Negative (Negative); Blood,Urine Negative (Negative); Clarity,Urine Clear (Clear/Hazy); Color,Urine Colorless (Lt Yel-Yel); Glucose, Urine Negative (Negative); Hyaline Casts,Urine < 1 /hpf (0-1); Ketones,Urine Negative (Negative); Leukocyte Esterase,Urine Negative (Negative); Nitrite,Urine Negative (Negative); PH,Urine 6.5 (5.0-7.0); Protein,Urine Negative (Neg - Trace); RBC,Urine < 1 /hpf (0-3); Specific Gravity,Urine 1.008 (1.001-1.035); Squamous Epithelial Cell,Urine < 1 /hpf (0-5); Urobilinogen,Urine Negative mg/dL (0.0-1.0); WBC,Urine < 1 /hpf (0-5)
[2025-03-26 17:02] LABS: Amphetamine/Methamp Scrn,U Negative (Negative); Barbiturate Screen,Urine Negative (Negative); Benzodiazepines Screen,Urine Negative (Negative); Benzoylecgonine Screen, Ur Negative (Negative); Fentanyl Screen,Urine Negative (Negative); Opiate Screen,Urine Negative (Negative); THC Screen,Urine Negative (Negative)
== END 2025-03-26 18:14 | disposition home or self-care (01) ==
PROVIDERS: Registered Nurse General Practice; Emergency Provider Family Medicine; PCP Student in an Organized Health Care Education/Training Program
DX: R60.0 Localized edema (principal); I50.9 Heart failure, unspecified; I48.91 Unspecified atrial fibrillation
CPT/HCPCS: 36415; 71045; 80053; 80307; 81001; 83615; 83735; 83880; 84484; 85025; 85610; 85730; 93005; 99283

== ENCOUNTER → 2025-05-12 | Outpatient (CLI) | payer MEDICARE, MEDICAID, SELFPAY ==
[2025-05-12 17:29] LABS: Collection Type, Urine Clean Catch
[2025-05-12 17:56] LABS: Bilirubin,Urine Negative (Negative); Blood,Urine Negative (Negative); Clarity,Urine Clear (Clear/Hazy); Color,Urine Colorless (Lt Yel-Yel); Glucose, Urine Negative (Negative); Hyaline Casts,Urine < 1 /hpf (0-1); Ketones,Urine Negative (Negative); Leukocyte Esterase,Urine Negative (Negative); Nitrite,Urine Negative (Negative); PH,Urine 6.0 (5.0-7.0); Protein,Urine Negative (Neg - Trace); RBC,Urine < 1 /hpf (0-3); Specific Gravity,Urine 1.009 (1.001-1.035); Squamous Epithelial Cell,Urine < 1 /hpf (0-5); Urobilinogen,Urine Negative mg/dL (0.0-1.0); WBC,Urine < 1 /hpf (0-5)
[2025-05-12 17:57] LABS: Basophils # (Auto) 0.1 Thou/mm3 (0.0-0.2); Basophils % (Auto) 1 % (0-2.5); Eosinophils # (Auto) 0.0 Thou/mm3 (0.0-0.5); Eosinophils % (Auto) 0 % (0-10); Hematocrit 24.5 % (36.0-46.0); Immature Granulocytes Auto 0.51 Thou/mm3 (0.00-0.00); Lymphocytes # (Auto) 9.1 Thou/mm3 (1.0-4.8); Lymphocytes % (Auto) 61 % (10-50); Mean Corpuscular HGB Conc 32.2 g/dl (31.0-37.0); Mean Corpuscular Hemoglobin 35.0 pg (25.0-35.0); Mean Corpuscular Volume 108 fL (80-100); Monocytes # (Auto) 0.6 Thou/mm3 (0.0-0.8); Monocytes % (Auto) 4 % (0-12); Neutrophils # (Auto) 4.6 Thou/mm3 (1.8-7.7); Neutrophils % (Auto) 31 % (37-80); Nucleated Red Blood Cell # 0.08 Thou/mm3 (0.00-0.00); Nucleated Red Blood Cell % 1 /100 WBC (0); Platelet Count 298 Thou/mm3 (140-440); RDW Standard Deviation 85.0 fL (36.4-46.3); Red Blood Count 2.26 Miln/mm3 (4.00-5.20); White Blood Count 14.9 Thou/mm3 (3.6-11.0)
[2025-05-12 18:11] LABS: Albumin, Serum 4.1 gm/dL (3.4-4.8); Anion Gap 11 (7-16); BUN/Creatinine Ratio 17 Ratio (12-20); Blood Urea Nitrogen 38 mg/dL (9-23); Calcium 8.9 mg/dL (8.3-10.6); Calcium (Corrected) 8.9 mg/dL (8.5-10.1); Carbon Dioxide 24.3 mMol/L (20.0-31.0); Chloride 110 mMol/L (98-107); Creatinine (Component) 2.3 mg/dL (0.6-1.3); Glucose 101 mg/dL (74-106); Osmolality,Calculated 297 (275-295); Phosphorous 5.2 mg/dL (2.4-5.1); Potassium 4.1 mMol/L (3.4-5.1); Sodium 145 mMol/L (136-145); eGFR 22 See Note
[2025-05-12 18:20] LABS: Hemoglobin 7.9 g/dL (12.0-16.0)
[2025-05-12 19:29] LABS: Iron 51 mcg/dL (50-170); Percent Iron Saturation 22 % (20-55); Total Iron Binding Capacity 223 mcg/dL (250-425); Unsaturated Iron Binding 172 (225-295)
[2025-05-12 19:31] LABS: Parathyroid Hormone Intact 206.8 pg/ml (18.5-88.0)
[2025-05-12 20:15] LABS: Vitamin D 25 Hydroxy Total 30.8 ng/mL (7.3-40.2)
== END | disposition home or self-care (01) ==
LOC: COPL 16:22
PROVIDERS: PCP Student in an Organized Health Care Education/Training Program; Referring Provider Internal Medicine Nephrology; Visit Provider Internal Medicine Nephrology
DX: N18.4 Chronic kidney disease, stage 4 (severe) (principal); D63.1 Anemia in chronic kidney disease; E55.9 Vitamin D deficiency, unspecified
CPT/HCPCS: 36415; 80069; 81001; 82306; 83540; 83550; 83970; 85025

== ENCOUNTER → 2025-05-13 | Outpatient (CLI) | payer MEDICARE, MEDICAID, SELFPAY ==
[2025-05-13 14:25] LABS: Basophils # (Auto) 0.1 Thou/mm3 (0.0-0.2); Basophils % (Auto) 1 % (0-2.5); Eosinophils # (Auto) 0.0 Thou/mm3 (0.0-0.5); Eosinophils % (Auto) 0 % (0-10); Hematocrit 25.9 % (36.0-46.0); Immature Granulocytes Auto 0.57 Thou/mm3 (0.00-0.00); Lymphocytes # (Auto) 12.1 Thou/mm3 (1.0-4.8); Lymphocytes % (Auto) 64 % (10-50); Mean Corpuscular HGB Conc 32.4 g/dl (31.0-37.0); Mean Corpuscular Hemoglobin 35.6 pg (25.0-35.0); Mean Corpuscular Volume 110 fL (80-100); Monocytes # (Auto) 0.8 Thou/mm3 (0.0-0.8); Monocytes % (Auto) 4 % (0-12); Neutrophils # (Auto) 5.3 Thou/mm3 (1.8-7.7); Neutrophils % (Auto) 28 % (37-80); Nucleated Red Blood Cell # 0.10 Thou/mm3 (0.00-0.00); Nucleated Red Blood Cell % 1 /100 WBC (0); Platelet Count 310 Thou/mm3 (140-440); RDW Standard Deviation 86.3 fL (36.4-46.3); Red Blood Count 2.36 Miln/mm3 (4.00-5.20); White Blood Count 18.9 Thou/mm3 (3.6-11.0)
[2025-05-13 14:36] LABS: Hemoglobin 8.4 g/dL (12.0-16.0)
[2025-05-13 14:38] LABS: Alanine Aminotransferase 22 U/L (10-49); Albumin, Serum 4.3 gm/dL (3.4-4.8); Alkaline Phosphatase 146 U/L (46-116); Anion Gap 11 (7-16); Aspartate Amino Transferase 16 U/L (0-34); BUN/Creatinine Ratio 16 Ratio (12-20); Bilirubin,Direct 0.3 mg/dL (0.0-0.3); Bilirubin,Total 0.6 mg/dL (0.3-1.2); Blood Urea Nitrogen 37 mg/dL (9-23); Calcium 9.3 mg/dL (8.3-10.6); Carbon Dioxide 25.2 mMol/L (20.0-31.0); Cardiac Risk Estimate 2.6 RATIO (3.7-5.6); Chloride 108 mMol/L (98-107); Cholesterol 147 mg/dL (132-200); Creatinine (Component) 2.3 mg/dL (0.6-1.3); Digoxin 1.1 ng/mL (0.8-2.0); Free T4 (Free Thyroxine) 1.60 ng/dL (0.89-1.76); Glucose 113 mg/dL (74-106); HDL Cholesterol 57 mg/dL (40-60); LDL Cholesterol,Calculated 80 mg/dL (0-130); Osmolality,Calculated 296 (275-295); Potassium 4.2 mMol/L (3.4-5.1); Sodium 144 mMol/L (136-145); Thyroid Stimulating Hormone 0.72 uIU/mL (0.55-4.78); Total Protein 6.4 gm/dL (5.7-8.2); Triglycerides 48 mg/dL (30-150); Uric Acid 9.5 mg/dL (3.1-7.8); eGFR 22 See Note
[2025-05-13 14:47] LABS: B-Type Natriuretic Peptide 952 pg/mL (0-100)
[2025-05-13 15:42] LABS: Path Review Blood Smear Sent to Pathologist
== END | disposition home or self-care (01) ==
LOC: COPL 13:34
PROVIDERS: PCP Internal Medicine; Referring Provider Internal Medicine Cardiovascular Disease; Visit Provider Internal Medicine Cardiovascular Disease
DX: I11.0 Hypertensive heart disease with heart failure (principal); I50.22 Chronic systolic (congestive) heart failure; E78.2 Mixed hyperlipidemia; I48.20 Chronic atrial fibrillation, unspecified
CPT/HCPCS: 36415; 80048; 80061; 80076; 80162; 83880; 84439; 84443; 84550; 85025

== ENCOUNTER → 2025-05-28 | Outpatient (CLI) | payer MEDICARE, MEDICAID, SELFPAY ==
[2025-05-28 14:40] LABS: LDH (Lactate Dehydrogenase) 193 U/L (120-246)
[2025-05-28 14:45] LABS: Folate 18.41 ng/mL (>5.38); Vitamin B12 400 pg/mL (211-911)
[2025-05-28 16:04] LABS: Ferritin 470 ng/mL (7.3-270.7); Iron 75 mcg/dL (50-170); Percent Iron Saturation 28 % (20-55); Total Iron Binding Capacity 259 mcg/dL (250-425); Unsaturated Iron Binding 184 (225-295)
[2025-06-05 06:35] LABS: Haptoglobin* 98 mg/dL (43-212)
== END | disposition home or self-care (01) ==
LOC: SCTO 13:38
PROVIDERS: PCP Physician Assistant; Referring Provider Internal Medicine Hematology & Oncology; Visit Provider Internal Medicine Hematology & Oncology
DX: C53.1 Malignant neoplasm of exocervix (principal); C91.10 Chronic lymphocytic leukemia of B-cell type not having achieved remission
CPT/HCPCS: 36415; 82607; 82728; 82746; 83010; 83540; 83550; 83615

== ENCOUNTER → 2025-06-27 | Outpatient (CLI) | payer MEDICARE, MEDICAID, SELFPAY ==
[2025-06-27 12:31] LABS: Basophils # (Auto) 0.1 Thou/mm3 (0.0-0.2); Basophils % (Auto) 0 % (0-2.5); Eosinophils # (Auto) 0.1 Thou/mm3 (0.0-0.5); Eosinophils % (Auto) 1 % (0-10); Hematocrit 25.7 % (36.0-46.0); Immature Granulocytes Auto 0.15 Thou/mm3 (0.00-0.00); Lymphocytes # (Auto) 8.4 Thou/mm3 (1.0-4.8); Lymphocytes % (Auto) 66 % (10-50); Mean Corpuscular HGB Conc 31.9 g/dl (31.0-37.0); Mean Corpuscular Hemoglobin 35.2 pg (25.0-35.0); Mean Corpuscular Volume 110 fL (80-100); Monocytes # (Auto) 1.1 Thou/mm3 (0.0-0.8); Monocytes % (Auto) 9 % (0-12); Neutrophils # (Auto) 3.0 Thou/mm3 (1.8-7.7); Neutrophils % (Auto) 23 % (37-80); Nucleated Red Blood Cell # 0.00 Thou/mm3 (0.00-0.00); Nucleated Red Blood Cell % 0 /100 WBC (0); Platelet Count 211 Thou/mm3 (140-440); RDW Standard Deviation 88.2 fL (36.4-46.3); Red Blood Count 2.33 Miln/mm3 (4.00-5.20); White Blood Count 12.9 Thou/mm3 (3.6-11.0)
[2025-06-27 12:32] LABS: Hemoglobin 8.2 g/dL (12.0-16.0)
[2025-06-27 12:41] LABS: B-Type Natriuretic Peptide 751 pg/mL (0-100)
[2025-06-27 14:36] LABS: Anion Gap 13 (7-16); BUN/Creatinine Ratio 20 Ratio (12-20); Blood Urea Nitrogen 47 mg/dL (9-23); Calcium 8.8 mg/dL (8.3-10.6); Carbon Dioxide 24.4 mMol/L (20.0-31.0); Chloride 112 mMol/L (98-107); Creatinine (Component) 2.3 mg/dL (0.6-1.3); Digoxin 1.2 ng/mL (0.8-2.0); Glucose 93 mg/dL (74-106); Osmolality,Calculated 308 (275-295); Potassium 4.2 mMol/L (3.4-5.1); Sodium 149 mMol/L (136-145); Uric Acid 8.9 mg/dL (3.1-7.8); eGFR 22 See Note
== END | disposition home or self-care (01) ==
PROVIDERS: PCP Student in an Organized Health Care Education/Training Program; Referring Provider Internal Medicine Cardiovascular Disease; Visit Provider Internal Medicine Cardiovascular Disease
DX: I11.0 Hypertensive heart disease with heart failure (principal); I50.22 Chronic systolic (congestive) heart failure; E78.5 Hyperlipidemia, unspecified; E79.0 Hyperuricemia without signs of inflammatory arthritis and tophaceous disease
CPT/HCPCS: 36415; 80048; 80162; 83880; 84550; 85025

== ENCOUNTER 2025-07-27 12:26 | Inpatient (IN) | payer MEDICARE, MEDICAID, SELFPAY ==
[2025-07-27] VITALS (9 sets, daily range): BP systolic 89–119; BP diastolic 6–76; PULSE 96–125; RESP 17–94; TEMP 36.4–37.3; O2SAT 95–100; BMI 24.7
--- NOTE | 2025-07-27 13:27 | XR_ITS ---
EXAMINATION: PA chest single view TECHNIQUE: Upright PA chest single view Date and time: July 27, 2025, 1345 hours, comparison March 26, 2025 INDICATIONS: Chest pain shortness of breath 3 days. FINDINGS: Massive enlargement cardiac contour Prominent vascular congestion Large left pleural effusion Pneumonia and/or edema in both lower lung zones IMPRESSION: Massive enlargement cardiac contour Mild heart failure Edema and/or pneumonia at the lung bases with large left pleural effusion
--- NOTE | 2025-07-27 13:27 | EKG_ITS ---
[facility] Test Date: 2025-07-27 Pat Name: JEANETTE SPEARS Department: Room: - Gender: Female Teaching Assistant: : 1950 Requested By: Wayne Santiago Order Number: [id number] Reading MD: Wayne Santiago Measurements Intervals [place] Rate: 98 P: IA: QRS: -50 QRSD: 170 T: 103 QT: 372 QTc: 477 Interpretive Statements ATRIAL FIBRILLATION LEFT AXIS DEVIATION [QRS AXIS < -30] INTRAVENTRICULAR CONDUCTION DELAY [130+ ms QRS DURATION] LATERAL MYOCARDIAL INFARCTION , OF INDETERMINATE AGE [40+ ms Q WAVE AND/OR ST/T ABNORMALITY IN I/aVL/V5/V6] Compared to ECG 03/26/2025 14:11:53 Intraventricular conduction delay now present Myocardial infarct finding now present Left bundle-branch block no longer present /store/S0/[id number]/ecg/[id number].pdf
--- NOTE | 2025-07-27 13:28 | EDNOTE_ITS ---
<Statement entered by Jacy Aguilar MD - 07/29/25 17:41> As co-signing physician, I was present and available for consult prn. I concur with the plan and care as documented by the midlevel provider. ED General RME/HPI General Chief complaint: Shortness of Breath/Dyspnea Stated complaint: SOB, COUGH CONGESTED X1 DAY; HX CHF Time Seen by Provider: 07/27/25 13:27 Arrival date/time: 07/27/25 12:26 CC: Chest pain abdominal pain HPI ongoing since Monday, 3 days ago, also states that she thinks , that she has painful urination. Patient denies fever or shortness of breath. Family member bedside answers a number of her questions for her. Related Data Home Medications ?Medication ?Instructions ?Recorded ?Confirmed digoxin 125 mcg (0.125 mg) tablet 125 mcg PO EVERYOTHE RDAY 07/20/20 05/08/23 magnesium oxide 400 mg (241.3 mg 400 mg PO QDAY 05/08/23 magnesium) tablet (MagOx) rivaroxaban 10 mg tablet (Xarelto) 10 mg PO QDAY 07/0905/08/23 buspirone 5 mg tablet 5 mg BID 08/31/21 05/08/23 spironolactone 25 mg tablet 12.5 mg PO QDAY 08/31/21 0 05/08/23 carvedilol 3.125 mg tablet 3.125 mg PO BID 05/08/23 furosemide 40 mg tablet 40 mg PO QDAY 05/08/2305/08 metolazone 2.5 mg tablet 2.5 mg PO 3XD 05/08/2305/08 spironolactone 25 mg tablet mg 05/08/23 Previous Rx's ?Medication ?Instructions ?Recorded miconazole nitrate 2 % topical 1 applic topical BID #3 0 grams 07/02/24 cream potassium chloride 20 mEq oral 20 meq PO QDAY #10 ea 0 03/26/25 packet Allergies Allergy/AdvReac Type Severity Reaction Status Date / Time morphine Allergy Severe Rash Verified 07/27/25 12:33 Penicillins Allergy Severe Hives Verified 07/27/25 12:33 Review of Systems Review of Systems Narrative Review of Systems: GEN: No fever, no chills, no weight loss EYES: No discharge, no visual changes, no pain HEENT: No ear pain, no congestion, no sore throat PULM: No shortness of breath, no cough, no congestion CV: + chest pain, no dyspnea on exertion, no palpitations GI: No nausea, no vomiting, no diarrhea, + pain, no constipation : No frequency, no urgency, no dysuria MUSC/SKEL: No joint pain, no back pain SKIN: No rash PSYCH: No hallucinations, no depression HEME/LYMPH: No easy bleeding or bruising tendencies NEURO: No weakness, no headache Past Medical History Past Medical History NEUROLOGIC: Positive Neurological Disorders, Seizures and Head Trauma CARDIAC: Positive Cardiac Disorders, Cardiac Arrhythmia, Atrial Fibrillation, Hypercholesterolemia, Congestive Heart Failure, Edema, Cellulitis and Hypertension; Negative Varicose Veins RESPIRATORY: Positive Pneumonia; Negative Chronic Obstructive Pulmonary Disease (COPD), Asthma, Tuberculosis or Sleep Apnea GASTROINTESTINAL: Negative Gastrointestinal Disorders, Hepatitis or Gastroesophageal Reflux Disease GENITOURINARY: Positive Genitourinary Disorders and Renal Disease MUSCULOSKELETAL: Positive Musculoskeletal Disorders and Osteoporosis ENT: Positive Head Trauma ENDOCRINE: Negative Endocrine Disorders, Diabetes Mellitus Type 1, Diabetes Mellitus Type 2 or Hypothyroidism HEMATOLOGIC: Positive Blood Disorders and Anemia; Negative Sickle Cell Disease PSYCHO/SOCIAL: Positive Depression and Behavior Problems; Negative Psychiatric Problems OTHER HISTORY: Positive Hospitalization and Developmental Delay; Negative Autoimmune Disease, Shingles, Falls, Blood Transfusions, Anesthesia Reactions, Chemotherapy, Radiation Therapy, MRSA, Chicken Pox, Measles, Mumps or Cancer Family History FAMILY HISTORY: Positive Family Respiratory Disorders, Family Cardiac Disorders, Family Cancer and Family Surgery; Negative Family Psychiatric Problems, Family Gastrointestinal Problems or Family Anesthesia Reaction Surgical History SURGICAL: Positive Cardiac Surgery, Open Heart Surgery and Coronary Artery Bypass Graft; Negative Pacemaker or Abdominal Surgery Social History SMOKING STATUS: Never smoker SUBSTANCE USE: does not use ED Exam Narrative Physical exam: [General: Appears not in any acute distress Head normocephalic HEENT: Within acceptable limits Neck is supple nontender Chest equal chest rise nontender to palpation Respiratory: Poor inspiratory effort, clear to auscultation no wheezes crackles or rubs CV: Rate rhythm is regular no murmurs rubs or clicks Abdomen is distended secondary to body habitus soft nontender no masses positive bowel sounds all 4 quadrants Back: No CVA tenderness no spinous process tenderness from cervical spine thoracic and lumbar spine Skin: Intact no petechiae rash induration ulceration or crepitus Extremities: Moving all extremity against resistance cap refill less than 2 seconds neurosensory intact Neuro: Awake alert oriented x1, self, Glascow coma 15 no focal deficits] Course Course Course Narrative: Patient's case clinical presentation laboratory findings and imaging discussed with the resident for Dr. Armando Jones's who agrees to accept the patient for admission. Quality Measures none Orders Category Date Time Status Bedside COVID-19 Antigen Test NOW Care 07/27/25 14:44 Active Bedside Influenza A&B Antigen Test NOW Care 07/27/25 14:45 Completed COVID-19 Screening Questionnaire NOW Care 07/27/25 16:26 Active Pharmacist Assistant STAT Care 07/27/25 15:02 Active Continuous Pulse Oximetry STAT Care 07/27/25 15:02 Completed EKG (ED ONLY) *Do not use* NOW Care 07/27/25 13:27 Completed NPO STAT Care 07/27/25 15:02 Active Saline [Insert IV] NOW Care 07/27/25 14:44 Active Strict Intake and Output Routine Care 07/27/25 15:02 Ordered CA echo doppler complete Stat Exams 07/27/25 16:[address] chest wo con Stat Exams 07/27/25 14:43 Ordered EKG (ED Only) Stat Exams 07/27/25 13:27 Draft XR chest 1V Stat Exams 07/27/25 13:27 Completed B-Type Natriuretic Peptide Stat Lab 07/27/25 14:08 Completed Blood Culture (Lab) Stat Lab 07/27/25 15:02 Received CBC Stat Lab 07/27/25 14:08 Completed Comprehensive Metabolic Panel Stat Lab 07/27/25 14:08 Completed Drug Screen,Urine Stat Lab 07/27/25 14:01 Completed LDH (Lactate Dehydrogenase) Stat Lab 07/27/25 14:08 Completed Lactate (Lactic Acid) Stat Lab 07/27/25 15:14 Completed Lipase Stat Lab 07/27/25 15:14 Completed Magnesium Stat Lab 07/27/25 14:08 Completed Partial Thromboplastin Time Stat Lab 07/27/25 14:08 Completed Phosphorous Stat Lab 07/27/25 15:14 Completed Procalcitonin Stat Lab 07/27/25 15:14 Completed Prothrombin Time with INR Stat Lab 07/27/25 14:08 Completed Troponin I Stat Lab 07/27/25 14:08 Completed Urinalysis, C/S if Indicated Stat Lab 07/27/25 14:01 Completed Urinalysis, C/S if Indicated Stat Lab 07/27/25 15:02 Ordered Doxycycline Inj [Vibramycin Inj] 100 mg Med 07/27/25 16:28 Discontinued Sodium Chloride 0.9% (Pop) [NS 0.9% mini bag] 100 ml IV Q12H Levalbuterol Rt [Xopenex Rt Renetta] Med 07/27/25 18:00 Discontinued 1.25 mg INH Q4HR Levalbuterol Rt [Xopenex Rt Renetta] Med 07/27/25 16:37 Active 1.25 mg INH Q6HRRT PRN Magnesium Sulfate 2 GM Ivpb [Magnesium Sulfate Ivpb] Med 07/27/25 16:27 Discontinued 2 gm in 50 ml IV X1 Remdesivir Inj [Veklury Inj] 200 mg Med 07/27/25 17:18 Discontinued Sodium Chloride 0.9% 250 ml [Ns] 250 ml IV X1 Ringers Lactated 1000 ml [Lactated Ringers] 1,000 ml Med 07/27/25 15:33 Discontinued IV 999 mls/hr Sodium Chloride Rt Renetta 0.9% [NS Rt Renetta 0.9%] Med 07/27/25 16:29 Active 3 ml INH PRN PRN cefTRIAXone/D5w 1gm IV premix [Rocephin/D5w 1gm IV Med 07/27/25 14:44 Discontinued premix] 1 gm in 50 ml IV X1 Oxygen Delivery NOW RT 07/27/25 15:02 Active Vital Signs Vital signs: Vital Signs Temperature 97.6 F 07/27/25 13:32 Pulse Rate 96 07/27/25 13:32 Respiratory Rate 20 07/27/25 13:32 Blood Pressure 107/67 07/27/25 13:32 Pulse Oximetry (%) 95 07/27/25 13:32 Oxygen Delivery Method Room Air 07/27/25 13:32 Discharge Plan Plan Patient Disposition: Other Care w/in Hosp (SDC/PEBBLES) Patient condition on transfer: Stable Problem List Clinical Impression: Pneumonia, Pleural effusion, Shortness of breath, COVID PA/SKILLED LABORER Supervising Physician PA/SKILLED LABORER Supervising Physician: Wayne Alvarez ENP [facility] Clinical Information Provided by: patient and family Medical Records reviewed [facility] Meds/Rx considered, not ordered None Labs/Rad/Tests considered, not ordered None Medication Administration(s) Medication Administration History Acetaminophen (Acetaminophen 325 Mg Tablet) 650 mg PO Q6H PRN PRN Reason: PAIN SCALE 1-3 (mild Stop: 08/26/25 17:18 Acetaminophen (Acetaminophen 325 Mg Tablet) 650 mg PO Q6H PRN PRN Reason: Fever >101.5 Stop: 08/26/25 17:18 Hydrocodone Bitart/Acetaminophen (Hydrocodone/Apap 5/325 Tablet) 1 tab PO Q6HR PRN PRN Reason: PAIN SCALE 4-6 (Moderate Stop: 08/01/25 17:18 Heparin Sodium (Porcine) (Heparin Sod Inj 5000 Unit/Ml Vial) 5,000 unit SC X1 ONE Stop: 07/28/25 19:01 Levalbuterol HCl (Levalbuterol Rt 1.25 Mg/0.5 Ml Nebu) 1.25 mg INH Q6HRRT PRN PRN Reason: SHORTNESS OF BREATH OR WHEEZE Stop: 08/26/25 18:59 Sodium Chloride (Sodium Chloride Rt Renetta 0.9% 3 Ml Nebu) 3 ml INH PRN PRN PRN Reason: SOLN Stop: 08/26/25 16:28 Spironolactone (Spironolactone 25 Mg Tablet) 12.5 mg PO QDAY ILIANA Stop: 08/26/25 17:29 Last Admin: 07/27/25 18:48 Dose: 12.5 mg Documented By: BD Discontinued Medications Ceftriaxone Sodium/Dextrose (Rocephin/D5w 1gm Iv Premix) 1 gm in 50 mls @ 100 mls/hr IV X1 ONE; Protocol Stop: 07/27/25 15:13 Last Infusion: 07/27/25 16:06 Dose: Infused Documented By: Admin: 07/27/25 15:33 Dose: 100 mls/hr Documented By: BD Lactated Ringer's (Lactated Ringers) 1,000 mls @ 999 mls/hr IV .Q1H1M ONE Stop: 07/27/25 16:33 Last Infusion: 07/27/25 17:19 Dose: Infused Documented By: Admin: 07/27/25 16:06 Dose: 999 mls/hr Documented By: BD Magnesium Sulfate (Magnesium Sulfate Ivpb) 2 gm in 50 mls @ 25 mls/hr IV X1 ONE Stop: 07/27/25 18:26 Last Infusion: 07/27/25 20:30 Dose: Infused Documented By: Admin: 07/27/25 18:25 Dose: 25 mls/hr Documented By: BD Doxycycline Hyclate 100 mg/ (Sodium Chloride) 100 mls @ 100 mls/hr IV Q12H ONE Stop: 07/27/25 17:27 Last Infusion: 07/27/25 19:30 Dose: Infused Documented By: Admin: 07/27/25 18:25 Dose: 100 mls/hr Documented By: BD Remdesivir 200 mg/ Sodium (Chloride) 250 mls @ 250 mls/hr IV X1 ONE; Protocol Stop: 07/27/25 18:17 Last Infusion: 07/27/25 21:18 Dose: Infused Documented By: Admin: 07/27/25 19:59 Dose: 250 mls/hr Documented By: CB Levalbuterol HCl (Levalbuterol Rt 1.25 Mg/0.5 Ml Nebu) 1.25 mg INH Q4HR [facility] Stop: 08/26/25 17:59
[2025-07-27 14:23] LABS: Collection Type, Urine Clean Catch
[2025-07-27 14:30] LABS: Basophils # (Auto) 0.1 Thou/mm3 (0.0-0.2); Basophils % (Auto) 1 % (0-2.5); Eosinophils # (Auto) 0.0 Thou/mm3 (0.0-0.5); Eosinophils % (Auto) 0 % (0-10); Hematocrit 26.9 % (36.0-46.0); Immature Granulocytes Auto 0.96 Thou/mm3 (0.00-0.00); Lymphocytes # (Auto) 13.8 Thou/mm3 (1.0-4.8); Lymphocytes % (Auto) 52 % (10-50); Mean Corpuscular HGB Conc 32.0 g/dl (31.0-37.0); Mean Corpuscular Hemoglobin 34.1 pg (25.0-35.0); Mean Corpuscular Volume 107 fL (80-100); Monocytes # (Auto) 1.1 Thou/mm3 (0.0-0.8); Monocytes % (Auto) 4 % (0-12); Neutrophils # (Auto) 10.5 Thou/mm3 (1.8-7.7); Neutrophils % (Auto) 40 % (37-80); Nucleated Red Blood Cell # 0.12 Thou/mm3 (0.00-0.00); Nucleated Red Blood Cell % 1 /100 WBC (0); Platelet Count 343 Thou/mm3 (140-440); RDW Standard Deviation 83.6 fL (36.4-46.3); Red Blood Count 2.52 Miln/mm3 (4.00-5.20); White Blood Count 26.5 Thou/mm3 (3.6-11.0)
[2025-07-27 14:31] LABS: Hemoglobin 8.6 g/dL (12.0-16.0)
[2025-07-27 14:36] LABS: Bacteria,Urine Rare; Bilirubin,Urine Negative (Negative); Blood,Urine Negative (Negative); Clarity,Urine Clear (Clear/Hazy); Color,Urine Yellow (Lt Yel-Yel); Culture Indicated,Urine Not Indicated; Glucose, Urine Negative (Negative); Hyaline Casts,Urine < 1 /hpf (0-1); Ketones,Urine Negative (Negative); Leukocyte Esterase,Urine Negative (Negative); Nitrite,Urine Negative (Negative); PH,Urine 5.5 (5.0-7.0); Protein,Urine Trace (Neg - Trace); RBC,Urine 1 /hpf (0-3); Specific Gravity,Urine 1.015 (1.001-1.035); Squamous Epithelial Cell,Urine 3 /hpf (0-5); Urobilinogen,Urine 2.0 mg/dL (0.0-1.0); WBC,Urine 1 /hpf (0-5)
[2025-07-27 14:41] LABS: Amphetamine/Methamp Scrn,U Negative (Negative); Barbiturate Screen,Urine Negative (Negative); Benzodiazepines Screen,Urine Negative (Negative); Benzoylecgonine Screen, Ur Negative (Negative); Fentanyl Screen,Urine Negative (Negative); Opiate Screen,Urine Negative (Negative); THC Screen,Urine Negative (Negative)
[2025-07-27 14:51] LABS: B-Type Natriuretic Peptide 988 pg/mL (0-100)
[2025-07-27 15:01] LABS: Alanine Aminotransferase 35 U/L (10-49); Albumin, Serum 4.4 gm/dL (3.4-4.8); Albumin/Globulin Ratio 1.7 (1.2-2.2); Alkaline Phosphatase 194 U/L (46-116); Anion Gap 15 (7-16); Aspartate Amino Transferase 21 U/L (0-34); BUN/Creatinine Ratio 20 Ratio (12-20); Bilirubin,Total 1.0 mg/dL (0.3-1.2); Blood Urea Nitrogen 44 mg/dL (9-23); Calcium 9.7 mg/dL (8.3-10.6); Calcium (Corrected) 9.7 mg/dL (8.5-10.1); Carbon Dioxide 22.4 mMol/L (20.0-31.0); Chloride 105 mMol/L (98-107); Creatinine (Component) 2.2 mg/dL (0.6-1.3); Estimated Creatinine Clearance 20.1 mL/min (>60); Globulin 2.6 gm/dL (2.3-3.5); Glucose 125 mg/dL (74-106); Magnesium 2.2 mg/dL (1.6-2.6); Osmolality,Calculated 295 (275-295); Potassium 4.1 mMol/L (3.4-5.1); Sodium 142 mMol/L (136-145); Total Protein 7.0 gm/dL (5.7-8.2); Troponin I 0.023 ng/mL (0.0-0.045); eGFR 23 See Note
[2025-07-27 15:16] LABS: LDH (Lactate Dehydrogenase) 209 U/L (120-246)
[2025-07-27 15:29] LABS: Lactate (Lactic Acid) 1.5 mMol/L (0.4-2.0)
[2025-07-27] MEDS: cefTRIAXone/D5w 1gm IV premix 1 GM/50 ML BAG IV (15:33)
[2025-07-27 15:53] LABS: INR 1.2 (0.9-1.3); Partial Thromboplastin Time 32.8 Seconds (22.0-36.0); Prothrombin Time 12.4 Seconds (9.0-12.2)
[2025-07-27 15:59] LABS: Lipase 38 U/L (12-53); Phosphorous 4.6 mg/dL (2.4-5.1); Procalcitonin 1.88 ng/ml (0.0-0.49)
[2025-07-27] MEDS: RINGERS LACTATED 1000 ML 1,000 ML 999 ML IV (16:06)
--- NOTE | 2025-07-27 16:44 | ECHO_ITS ---
Patient Info Name: Dipti Alexander Age: 75 years : 1950 Gender: Female Ht: 160 cm Wt: 64 kg BSA: 1.69 m2 BP: 96 / 62 mmHg HR: 112 bpm Exam Date: 07/27/2025 5:04 PM Admit Date: 07/27/2025 Site: [facility] Room Number: ER Patient Status: I Exam Type: CA echo doppler complete Spinner Hydraulic: Ebony Suarez Ordering Physician: Prabhu Joseph Study Info Indications CHF - Primary Location: S2NX Left Ventricular Outflow Tract Name Value Normal LVOT 2D LVOT Diameter 1.8 cm LVOT Doppler LVOT Peak Velocity 100 cm/s LVOT Mean Gradient 2 mmHg LVOT VTI 20 cm LVOT VTI/AV VTI Ratio 0.7 LVOT Stroke Volume 50 ml Pulmonic Valve Name Value Normal PV Doppler PV Peak Velocity 91 cm/s PV Regurgitation Doppler MS Peak End Diastolic Velocity 64 cm/s Mitral Valve Name Value Normal MV Doppler MV PHT 67 ms MV Area (PHT) 3.3 cm2 4.0-5.0 MV Annular TDI MV Septal e' Velocity 7.6 cm/s MV Lateral e' Velocity 10.1 cm/s MV e' Average 8.86 cm/s Tricuspid Valve Name Value Normal TV Regurgitation Doppler TR Peak Velocity 312 cm/s Estimated PAP/RSVP RA Pressure 8 mmHg <=5 PA Systolic Pressure 47 mmHg <36 RV Systolic Pressure 47 mmHg <36 Aortic Valve Name Value Normal AV 2D/MM AV Cusp Sep (MM) 1.8 cm AV Doppler AV Peak Velocity 136 cm/s AV Mean Gradient 4 mmHg AV VTI 27 cm AV Area (Cont Eq VTI) 1.8 cm2 >=3.0 AV Area (Cont Eq Zaki) 1.9 cm2 AV DI (Zaki) 0.74 AV Regurgitation 2D LVOT Area 2.5 cm2 Ventricles Name Value Normal LV Dimensions 2D/MM IVS Diastolic Thickness (2D) 1.0 cm 0.6-0.9 LVID Diastole (2D) 6.5 cm 3.8-5.2 LVIW Diastolic Thickness (2D) 0.9 cm 0.6-0.9 LVID Systole (2D) 6.0 cm 2.2-3.5 LVOT Diameter 1.8 cm LV Mass (2D Cubed) 265.24 g 67.00-162.00 LV Mass Index (2D Cubed) 157 g/m2 43-95 Relative Wall Thickness (2D) 0.28 <=0.42 IVS/LVIW Diastolic Thickness (2D) 1.11 0.00-1.50 LV Fractional Shortening/Ejection Fraction 2D/MM LV Fractional Shortening (2D) 8 % 27-45 LV EF (2D Teichholz) 17 % Atria Name Value Normal LA Dimensions LA Volume (4C A-L) 111 ml LA Volume (BP A-L) 141 ml Left Ventricle Left ventricular chamber dimension is moderately enlarged. Left ventricular systolic function is severely reduced with visually estimated ejection fraction of 20-25%. There is mild eccentric hypertrophy noted in the left ventricle. Left ventricular segmental wall motion is normal. There is indeterminate diastolic function in the left ventricle. Right Ventricle Right ventricular chamber dimension is mildly enlarged. Right ventricular systolic function is normal. Left Atrium Left atrial chamber dimension is severely enlarged. Right Atrium Right atrial chamber dimension is severely enlarged. Aortic Valve The aortic valve is trileaflet. There is no aortic valve sclerosis. There is no aortic valve stenosis with a peak velocity of 136 cm/s, mean gradient of 4 mmHg, and aortic valve area of 1.8 cm2. There is no aortic valve regurgitation. Pulmonic Valve The pulmonic valve is normal. There is no pulmonic valve stenosis. There is no pulmonic regurgitation. Mitral Valve The mitral valve has normal leaflets. There is mild mitral valve stenosis. There is mild mitral valve regurgitation. Tricuspid Valve The tricuspid valve leaflets are normal. There is no tricuspid valve stenosis. There is mild tricuspid valve regurgitation. Pulmonary hypertension, estimated pulmonary arterial systolic pressure is 47 mmHg and systemic blood pressure of 96 mmHg in systole. Pericardium/Pleural The pericardium appears normal. There is small pericardial effusion with no tamponade. Pleural effusion visualized. Inferior Vena Cava Not well visualized inferior vena cava with >50% collapse upon inspiration consistent with normal right atrial pressure, 8 mmHg. Aorta The aortic measurements are indexed to age and body surface area. The aortic root at the sinus of Valsalva is not well visualized. The prox ascending aorta is not well visualized. Summary 1. Left ventricle size is moderately enlarged and severe global hypokinesis global left ventricular function is severely decreased. There is left intraventricular dysssynchrony present. Estimated ejection fraction is 20-25%. 2. Right ventricle chamber size is mildly enlarged and systolic function is normal. Estimated RVSP is 47 mmHg, Moderate HTN. 3. There is mild mitral valve stenosis and mild regurgitation. 4. There is mild tricuspid valve regurgitation. 5. The left atrium is severely enlarged. The right atrium is severely enlarged. 6. Not well visualized IVC with estimated RA pressure 8 mmHg. 7. Prior study from 07/11/2021. Report Signatures Finalized by Darek Ruiz on 07/29/2025 12:47 PM
--- NOTE | 2025-07-27 17:09 | PC.NURSE ---
pixis not working called pharmacy for meds
--- NOTE | 2025-07-27 17:17 | PC.NURSE ---
pt refuses in and out cath
--- NOTE | 2025-07-27 17:36 | PC.CC ---
Patient is a 75 year-old female who presents to the hospital for SOB, Cough Congested, HX CHF. [employer] made [id number] contact with patient introduced self, role, and reason for visit. At bedside was patient's sister, Augustina Dominguez who is patient's caregiver. She reports the patient is developmentally delayed and has been caring for her since the passing of her parents. Patient ambulates with a walker at home but requires assistance with ADLs. At home patient uses a bedside commode. Patient does not use Oxygen at home and is not dialysis at patient. Patient's primary provider is Jennifer William. Upon discharge patient's sister is open for patient to be placed at a SNF. manager services to follow up.
--- NOTE | 2025-07-27 17:43 | PD.RESHP ---
Documentation for date of: 07/27/25 [facility] History of Present Illness History of present illness: The patient is a 75-year-old female with significant past medical history of developmental delay, CLL, CKD stage IV, hypertension, previous cardiac arrest, inflammatory anemia, A-fib, hyperlipidemia, CHF, osteoporosis and coronary artery bypass graft presented on 07/27/2025 with chief complaint of worsening of SOB for 1 day. The patient is a poor historian and as per patient sister, Augustina, the patient was apparently doing well at her baseline about 2 days ago, but 1 day ago, she developed shortness of breath, and continued to worsen, associated with orthopnea. She follows up with printer [facility] [employer] Dr. Ruiz, but denies any A-fib history, but has been on Xarelto 10 mg daily. The patient denied any fever or chills, nausea or vomiting, but admitted being to daycare, where she might have contracted COVID-19. In the ED her initial vitals were fairly stable, but later developed tachycardia with heart rate in 110s, saturating 94 to 96% on room air. Labs revealed white count 26.5, hemoglobin 8.6, MCV 107, chemistry panel revealed BUN 44, creatinine 2.2, GFR 23, ALP 194, BNP 988, Pro-Nato 1.88, UA was negative, U tox negative, chest x-ray revealed left pleural effusion, pneumonia at the lung bases, enlarged heart with mild CHF. EKG revealed atrial fibrillation, and QTc 477. She was positive for COVID-19. The patient also received 1 L of IV bolus fluid, and ceftriaxone in the ED. The patient was started on remdesivir, doxycycline. The patient was admitted to telemetry unit for further management of COVID-pneumonia, in the setting of CHF exacerbation with left pleural effusion. PMH: As mentioned above Family history: Positive for respiratory disorders, cardiac disorders Surgical history: CABG Social history: Never smoker, never drinker or any illicit drug use Review of Systems Review of Systems Systems Reviewed: All systems reviewed, normal except as documented Exam Vital Signs Temp Pulse Resp BP Pulse Ox O2 Del Method 99.1 F 117 H 17 89/63 L 96 Room Air 07/27/25 15:04 07/27/25 16:43 07/27/25 16:43 07/27/25 15:04 07/27/25 16:43 07/27/25 15:04 Narrative Exam General: No acute distress, Alert and Oriented x 3 HEENT: Moist mucous membranes, oropharynx clear Neck: Supple, No masses, No JVD CVS: S1S2 Regular rate and rhythm, No murmurs, rubs or gallops Lungs: Clear to auscultation with mild accessory muscle use, mild crackles on bibasilar region with decreased breath sound on left base Abd: Soft, NT/ND, +BS, no organomegaly Ext: 2+ bilateral lower limb edema, warm and well perfused Skin: No rash Psych: Tired appearing Results: Labs 07/28/25 05:32 07/28/25 05:32 Labs: Short CBC 07/27/25 Range/Units 14:08 WBC 26.5 H (3.6-11.0) Thou/mm3 Hgb 8.6 L (12.0-16.0) g/dL Hct 26.9 L (36.0-46.0) % Plt Count 343 D (140-440) Thou/mm3 BMP 07/27/25 14:08 Sodium 142 Potassium 4.1 Chloride 105 Carbon Dioxide 22.4 BUN 44 H Creatinine 2.2 H Glucose 125 H Calcium 9.7 Cardiac Enzymes 07/27/25 Range/Units 14:08 Troponin I 0.023 (0.0-0.045) ng/mL Liver Function 07/27/25 Range/Units 14:08 Total Bilirubin 1.0 (0.3-1.2) mg/dL AST 21 (0-34) U/L ALT 35 (10-49) U/L Alkaline Phosphatase 194 H (46-116) U/L Albumin 4.4 (3.4-4.8) gm/dL Urine 07/27/25 Range/Units 14:01 Urine Color Yellow (Lt Yel-Yel) Urine Clarity Clear (Clear/Hazy) Urine pH 5.5 (5.0-7.0) Ur Specific Seltzer 1.015 (1.001-1.035) Urine Protein Trace (Neg - Trace) Urine Glucose (UA) Negative (Negative) Quality Measures Quality Measures VTE prophylaxis Advance care planning discussed with:: patient Medications Home Medications and Allergies Home Medications ?Medication ?Instructions ?Recorded ?Confirmed ?Type digoxin 125 mcg (0.125 mg) tablet 125 mcg PO EVERYOTHERDAY 07/20/20 07/28/25 History spironolactone 25 mg tablet 12.5 mg PO QDAY 08/31/21 07/28/25 History carvedilol 3.125 mg tablet 3.125 mg PO BID 05/08/23 07/28/25 History furosemide 40 mg tablet 40 mg PO QDAY 05/08/23 07/28/25 History spironolactone 25 mg tablet 12.5 mg PO EVERYOTHERDAY 05/08/23 07/28/25 History allopurinol 100 mg tablet 100 mg PO DAILY 07/28/25 07/28/25 History apixaban 2.5 mg tablet (Eliquis) 2.5 mg PO DAILY 07/28/25 07/28/25 History calcitriol 0.25 mcg capsule 0.25 mcg PO DAILY 07/28/25 07/28/25 History Allergies Allergy/AdvReac Type Severity Reaction Status Date / Time morphine Allergy Severe Rash Verified 07/27/25 12:33 Penicillins Allergy Severe Hives Verified 07/27/25 12:33 Visit Medications Acetaminophen (Acetaminophen 325 Mg Tablet) 650 mg PO Q6H PRN PRN Reason: PAIN SCALE 1-3 (mild Stop: 08/26/25 17:18 Acetaminophen (Acetaminophen 325 Mg Tablet) 650 mg PO Q6H PRN PRN Reason: Fever >101.5 Stop: 08/26/25 17:18 Hydrocodone Bitart/Acetaminophen (Hydrocodone/Apap 5/325 Tablet) 1 tab PO Q6HR PRN PRN Reason: PAIN SCALE 4-6 (Moderate Stop: 08/01/25 17:18 Heparin Sodium (Porcine) (Heparin Sod Inj 5000 Unit/Ml Vial) 5,000 unit SC X1 ONE Stop: 07/28/25 19:01 Magnesium Sulfate (Magnesium Sulfate Ivpb) 2 gm in 50 mls @ 25 mls/hr IV X1 ONE Stop: 07/27/25 18:26 Remdesivir 200 mg/ Sodium (Chloride) 250 mls @ 250 mls/hr IV X1 ONE; Protocol Stop: 07/27/25 18:17 Levalbuterol HCl (Levalbuterol Rt 1.25 Mg/0.5 Ml Nebu) 1.25 mg INH Q6HRRT PRN PRN Reason: SHORTNESS OF BREATH OR WHEEZE Stop: 08/26/25 18:59 Sodium Chloride (Sodium Chloride Rt Renetta 0.9% 3 Ml Nebu) 3 ml INH PRN PRN PRN Reason: SOLN Stop: 08/26/25 16:28 Spironolactone (Spironolactone 25 Mg Tablet) 12.5 mg PO QDAY ILIANA Stop: 08/26/25 17:29 Discontinued Medications Ceftriaxone Sodium/Dextrose (Rocephin/D5w 1gm Iv Premix) 1 gm in 50 mls @ 100 mls/hr IV X1 ONE; Protocol Stop: 07/27/25 15:13 Last Infusion: 07/27/25 16:06 Dose: Infused Lactated Ringer's (Lactated Ringers) 1,000 mls @ 999 mls/hr IV .Q1H1M ONE Stop: 07/27/25 16:33 Last Infusion: 07/27/25 17:19 Dose: Infused Doxycycline Hyclate 100 mg/ (Sodium Chloride) 100 mls @ 100 mls/hr IV Q12H ONE Stop: 07/27/25 17:27 Levalbuterol HCl (Levalbuterol Rt 1.25 Mg/0.5 Ml Nebu) 1.25 mg INH Q4HR ILIANA Stop: 08/26/25 17:59 Assessment & Plan Plan The patient is a 75-year-old female with significant past medical history of developmental delay, CLL, CKD, hypertension, previous cardiac arrest, inflammatory anemia, A-fib, hyperlipidemia, CHF, osteoporosis and coronary artery bypass graft presented on 07/27/2025 with chief complaint of worsening of SOB for 1 day. The patient also received 1 L of IV bolus fluid, and ceftriaxone in the ED. The patient was started on remdesivir, doxycycline. The patient was admitted to telemetry unit for further management of COVID-pneumonia, in the setting of CHF exacerbation with left pleural effusion. #COVID 19 pneumonia #Left pleural effusion #Mild CHF exacerbation #Atrial fibrillation Patient presented to ED with acute shortness of breath, and was found to have COVID-19 positive, chest x-ray significant for bibasilar pneumonia, and left pleural effusion. BNP 988, Pro-Nato 1.88. - Started on ceftriaxone 1 g IV daily - Started on doxycycline 100 mg IV twice daily - Started on remdesivir IV daily - Started on levalbuterol INH every 6 hourly as needed - TTE ordered and consulted Dr. Rodriguezs. - We will hold off on diuretics in the setting of soft blood pressure - We will hold off on Xarelto in the setting of possible left thoracocentesis tomorrow morning - Blood culture ordered - N.p.o. for now #Anemia of chronic disease 2/2 #Chronic kidney disease stage IV Presented with BUN 44 and creatinine 2.2, near to the baseline, hemoglobin 8.6 with previous elevated ferritin with normal range of folic acid and vitamin B12 -Avoid nephrotoxic medications -Renally dose medications -Monitor and replete electrolytes as needed #Chronic atrial fibrillation - Hold Xarelto at the patient is supposed to undergo left thoracocentesis tomorrow morning - Telemetry monitoring #CLL F/U outpatient Healthcare Maintenance: Dispo: Admitted for further management of COVID-19 pneumonia DVT prophylaxis: None after midnight due to scheduled thoracocentesis Diet: N.p.o. as the patient will be undergoing procedure tomorrow morning Ramirez: Not indicated Lines: Peripheral IVs CODE STATUS: Full code The patient's management plan was discussed with my attending physician MD Moses Miller MD, PGY3 Attending Provider Attestation/Addendum 75-year-old female with developmental delay, status post CABG, CHF, A-fib, CLL, chronic kidney disease is admitted for worsening shortness of breath. Patient tested positive for COVID. Patient will be started on remdesivir IV. Echocardiogram requested. Continue cardiac monitoring.
[2025-07-27] MEDS: DOXYCYCLINE INJ 100 MG in SODIUM CHLORIDE 0.9% (POP) 100 ML IV (18:25)
[2025-07-27] MEDS: Magnesium Sulfate 2 GM Ivpb 2 GM/50 ML BAG IV (18:25)
[2025-07-27] MEDS: SPIRONOLACTONE 25 MG TABLET 12.5 MG PO (18:48)
[2025-07-27] MEDS: REMDESIVIR INJ 200 MG in SODIUM CHLORIDE 0.9% 250 ML 250 ML 250 MG IV (19:59)
[2025-07-28] VITALS (9 sets, daily range): BP systolic 109–122; BP diastolic 53–83; PULSE 87–117; RESP 17–28; TEMP 36.2–37.1; O2SAT 94–100; BMI 25.9
--- NOTE | 2025-07-28 | XR_ITS ---
EXAMINATION: AP chest single view TECHNIQUE: AP upright portable chest single view Date and time: July 28, 2025, 1422 hours, comparison 02/24/2025 INDICATIONS: Post left thoracentesis. FINDINGS: No pneumothorax post thoracentesis Moderate enlargement cardiac contour prominent vascular congestion IMPRESSION: No pneumothorax post thoracentesis
[2025-07-28 06:18] LABS: Basophils # (Auto) 0.1 Thou/mm3 (0.0-0.2); Basophils % (Auto) 0 % (0-2.5); Eosinophils # (Auto) 0.0 Thou/mm3 (0.0-0.5); Eosinophils % (Auto) 0 % (0-10); Hematocrit 25.9 % (36.0-46.0); Immature Granulocytes Auto 0.75 Thou/mm3 (0.00-0.00); Lymphocytes # (Auto) 12.8 Thou/mm3 (1.0-4.8); Lymphocytes % (Auto) 51 % (10-50); Mean Corpuscular HGB Conc 32.0 g/dl (31.0-37.0); Mean Corpuscular Hemoglobin 34.0 pg (25.0-35.0); Mean Corpuscular Volume 106 fL (80-100); Monocytes # (Auto) 1.1 Thou/mm3 (0.0-0.8); Monocytes % (Auto) 5 % (0-12); Neutrophils # (Auto) 10.2 Thou/mm3 (1.8-7.7); Neutrophils % (Auto) 41 % (37-80); Nucleated Red Blood Cell # 0.10 Thou/mm3 (0.00-0.00); Nucleated Red Blood Cell % 0 /100 WBC (0); Platelet Count 325 Thou/mm3 (140-440); RDW Standard Deviation 83.0 fL (36.4-46.3); Red Blood Count 2.44 Miln/mm3 (4.00-5.20); White Blood Count 24.9 Thou/mm3 (3.6-11.0)
[2025-07-28 06:24] LABS: Hemoglobin 8.3 g/dL (12.0-16.0)
[2025-07-28 06:31] LABS: INR 1.2 (0.9-1.3); Partial Thromboplastin Time 31.7 Seconds (22.0-36.0); Prothrombin Time 12.5 Seconds (9.0-12.2)
[2025-07-28 07:07] LABS: Alanine Aminotransferase 27 U/L (10-49); Albumin, Serum 4.1 gm/dL (3.4-4.8); Albumin/Globulin Ratio 1.6 (1.2-2.2); Alkaline Phosphatase 186 U/L (46-116); Anion Gap 16 (7-16); Aspartate Amino Transferase 16 U/L (0-34); BUN/Creatinine Ratio 20 Ratio (12-20); Bilirubin,Total 0.6 mg/dL (0.3-1.2); Blood Urea Nitrogen 45 mg/dL (9-23); Calcium 9.3 mg/dL (8.3-10.6); Calcium (Corrected) 9.3 mg/dL (8.5-10.1); Carbon Dioxide 22.1 mMol/L (20.0-31.0); Cardiac Risk Estimate 2.8 RATIO (3.7-5.6); Chloride 108 mMol/L (98-107); Cholesterol 135 mg/dL (132-200); Creatinine (Component) 2.2 mg/dL (0.6-1.3); Estimated Creatinine Clearance 20.1 mL/min (>60); Globulin 2.5 gm/dL (2.3-3.5); Glucose 94 mg/dL (74-106); HDL Cholesterol 49 mg/dL (40-60); LDH (Lactate Dehydrogenase) 153 U/L (120-246); LDL Cholesterol,Calculated 74 mg/dL (0-130); Magnesium 2.3 mg/dL (1.6-2.6); Osmolality,Calculated 302 (275-295); Phosphorous 4.5 mg/dL (2.4-5.1); Potassium 4.0 mMol/L (3.4-5.1); Sodium 146 mMol/L (136-145); Total Protein 6.6 gm/dL (5.7-8.2); Triglycerides 58 mg/dL (30-150); eGFR 23 See Note
[2025-07-28 07:23] LABS: Thyroid Stimulating Hormone 0.57 uIU/mL (0.55-4.78)
--- NOTE | 2025-07-28 08:00 | XR_ITS ---
EXAMINATION: Ultrasound-guided left thoracentesis Ultrasound right hemothorax Ultrasound left hemithorax Date and time: July 28, 2025, 1352 hours INDICATIONS: Shortness of breath today, large left pleural effusion on CT chest 02/24/2025 TECHNIQUE AND FINDINGS: Informed consent provided. Timeout performed. Ultrasound images right and left hemithorax demonstrate large left pleural effusion Skin prepped over the left hemithorax and sterile drape applied 1% lidocaine administered for local anesthesia Utilizing ultrasonographic guidance percutaneous placement of 5 Albanian catheter in the left pleural space, 650 cc pleural fluid removed IMPRESSION: Successful ultrasound-guided left thoracentesis, 650 cc of pleural fluid removed
--- NOTE | 2025-07-28 09:03 | PC.SS ---
SNF referral submitted on [facility], responses are pending.
--- NOTE | 2025-07-28 09:08 | PC.SS ---
Addendum entered and electronically signed by ZACK Holder 07/28/25 16:05: Follow up with [facility] staff, Daron; completed. [facility] Level II case will be closed. Pending on line closure. Original Note: [facility] completed. Patient meets Level II criteria. [facility] follow up pending.
[2025-07-28] MEDS: BUMETANIDE INJ 0.25 MG/ML VIAL 4 ML 1 MG IVP (10:00)
[2025-07-28] MEDS: DIGOXIN 0.125 MG TABLET PO (10:05)
[2025-07-28] MEDS: DOXYCYCLINE 100 MG TABLET PO ×2 (10:05→20:03)
[2025-07-28] MEDS: cefTRIAXone/D5w 1gm IV premix 1 GM/50 ML BAG IV (10:06)
--- NOTE | 2025-07-28 11:50 | ESPR_ITS ---
<Statement entered by Kosta Peterson MD - 07/28/25 15:02> I saw and examined patient personally and supervised PGY 1 resident, Dr. Vega with formulating a management plan. I agree with the documentation with the exceptions as listed below. Dipti Alexander 75F significant pmhx of developmental delay, CLL, CKDIV, HTN, previous cardiac arrest, inflammatory anemia, A-fib on Eliquis, hyperlipidemia, CHF, osteoporosis and coronary artery bypass graft presented on 07/27/2025 with chief complaint of worsening of SOB for 1 day. The patient also received 1 L of IV bolus fluid, and ceftriaxone in the ED. The patient was started on remdesivir, doxycycline. The patient was admitted to telemetry unit for further management of COVID-pneumonia, in the setting of CHF exacerbation with left pleural effusion. Problem list: 1. COVID-19 pneumonia with superimposed bacterial PNA 2. Large left pleural effusion 3. Acute decompensated chronic diastolic and systolic congestive heart failure exacerbation [EF 25%] 4. Dilated cardiomyopathy 5. Paroxysmal atrial fibrillation 6. Hyperlipidemia 7. CAD s/p CABG 8. Developmental delay With regards to patient's COVID-19 pneumonia she is on treatment with remdesivir. She is also on ceftriaxone and doxycycline for superimposed bacterial pneumonia. Both her chest x-ray and elevated procalcitonin on admission indicate a bacterial component. For patient's acute decompensated CHF exacerbation and large left pleural effusion, we have started diuresis with Bumex 1 mg IV daily. Also scheduled for left-sided thoracentesis today. Previous echo on file from 2020 showed dilated cardiomyopathy with EF 25%. Repeat echo was ordered and also consulted her it infrastructure project manager, Dr. Ruiz. Plan of care discussed with Attending Dr. Jake Peterson MD PGY 2 Disclaimer: This note was dictated by speech recognition. Minor errors in siding mechanic may be present due to voice recognition software. Documentation for date of: 07/28/25 Subjective Subjective Interval history: No acute overnight events. Patient examined at bedside with sister. Sister reports that patient is extremely hungry and has not eaten since Monday night, and also believes that she will not tolerate the thoracentesis that she is had a procedure before and was unable to complete. Patient complains of itchy skin especially at nape. VSS, BP soft, mildly tachycardic, saturating well on room air. Significant labs include WBC 24.9, downtrending. Started remdesivir 100 mg daily, continue ceftriaxone and doxycycline. Started Bumex 1 mg daily, strict I's and O's. Cardiology consulted. Exam Vital Signs Temp Pulse Resp BP Pulse Ox O2 Del Method O2 Flow Rate 98.2 F 95 20 118/70 97 Room Air 2 07/28/25 08:00 07/28/25 11:24 07/28/25 11:24 07/28/25 10:05 07/28/25 11:24 07/28/25 08:00 07/27/25 23:11 Narrative Exam GENERAL: Alert, developmentally delayed (mental age of 12 y/o per sister), no acute distress HEENT: mucous membranes moist, bilateral sclera anicteric CARDIOVASCULAR: regular rate and rhythm, S1/S2 present, no murmurs appreciated PULMONARY: bilateral crackles at base, decreased breath sounds on L ABDOMINAL: soft, non-tender, non-distended, no rebound/guarding, bowel sounds present EXTREMITIES: 1+ pitting edema BLE SKIN: warm and dry, no rashes, flaky NEURO: CN II-XII grossly intact, no focal deficits, alert, following commands Objective Labs 07/28/25 05:32 07/28/25 05:32 Labs: Laboratory Results - last 24 hr 07/27/25 07/27/25 07/27/25 14:01 14:08 15:14 WBC 26.5 H RBC 2.52 L Hgb 8.6 L Hct 26.9 L MCV 107 H MCH 34.1 MCHC 32.0 RDW Std Deviation 83.6 H Plt Count 343 D Neut % (Auto) 40 Lymph % (Auto) 52 H [place] % (Auto) 4 Eos % (Auto) 0 Baso % (Auto) 1 Neut # (Auto) 10.5 H Lymph # (Auto) 13.8 H [place] # (Auto) 1.1 H Eos # (Auto) 0.0 Baso # (Auto) 0.1 Immature Gran # (Auto) 0.96 H Absolute Nucleated RBC 0.12 H Immature Gran % 4 H Nucleated RBC % 1 H PT 12.4 H INR 1.2 APTT 32.8 Sodium 142 Potassium 4.1 Chloride 105 Carbon Dioxide 22.4 Anion Gap 15 BUN 44 H Creatinine 2.2 H Estim Creat Clear Calc 20.1 L eGFR 23 L BUN/Creatinine Ratio 20 Glucose 125 H Calculated Osmolality 295 Lactic Acid 1.5 Calcium 9.7 Corrected Calcium 9.7 Phosphorus 4.6 Magnesium 2.2 Total Bilirubin 1.0 AST 21 ALT 35 Alkaline Phosphatase 194 H Lactate Dehydrogenase 209 Troponin I 0.023 B-Natriuretic Peptide 988 H* Total Protein 7.0 Albumin 4.4 Globulin 2.6 Albumin/Globulin Ratio 1.7 Triglycerides Cholesterol LDL Cholesterol, Calc HDL Cholesterol Cholesterol/HDL Ratio Lipase 38 Procalcitonin 1.88 H TSH Ur Collection Type Clean Catch Urine Color Yellow Urine Clarity Clear Urine pH 5.5 Ur Specific [place] 1.015 Urine Protein Trace Urine Glucose (UA) Negative Urine Ketones Negative Urine Blood Negative Urine Nitrite Negative Urine Bilirubin Negative Urine Urobilinogen (Auto) 2.0 Ur Leukocyte Esterase Negative Urine RBC 1 Urine WBC 1 Ur Squamous Epith Cells 3 Urine Bacteria Rare Hyaline Casts < 1 Ur Culture Indicated? Not Indicated Urine Opiates Screen Negative Urine Fentanyl Screen Negative Ur Barbiturates Screen Negative U Amphetamin/Meth Scrn Negative U Benzodiazepines Scrn Negative U Cocaine Metab Screen Negative U Marijuana (THC) Screen Negative 07/28/25 05:32 WBC 24.9 H RBC 2.44 L Hgb 8.3 L Hct 25.9 L MCV 106 H MCH 34.0 MCHC 32.0 RDW Std Deviation 83.0 H Plt Count 325 Neut % (Auto) 41 Lymph % (Auto) 51 H [place] % (Auto) 5 Eos % (Auto) 0 Baso % (Auto) 0 Neut # (Auto) 10.2 H Lymph # (Auto) 12.8 H [place] # (Auto) 1.1 H Eos # (Auto) 0.0 Baso # (Auto) 0.1 Immature Gran # (Auto) 0.75 H Absolute Nucleated RBC 0.10 H Immature Gran % 3 H Nucleated RBC % 0 PT 12.5 H INR 1.2 APTT 31.7 Sodium 146 H Potassium 4.0 Chloride 108 H Carbon Dioxide 22.1 Anion Gap 16 BUN 45 H Creatinine 2.2 H Estim Creat Clear Calc 20.1 L eGFR 23 L BUN/Creatinine Ratio 20 Glucose 94 Calculated Osmolality 302 H Lactic Acid Calcium 9.3 Corrected Calcium 9.3 Phosphorus 4.5 Magnesium 2.3 Total Bilirubin 0.6 AST 16 ALT 27 Alkaline Phosphatase 186 H Lactate Dehydrogenase 153 Troponin I B-Natriuretic Peptide Total Protein 6.6 Albumin 4.1 Globulin 2.5 Albumin/Globulin Ratio 1.6 Triglycerides 58 Cholesterol 135 LDL Cholesterol, Calc 74 HDL Cholesterol 49 Cholesterol/HDL Ratio 2.8 L Lipase Procalcitonin TSH 0.57 Ur Collection Type Urine Color Urine Clarity Urine pH Ur Specific [place] Urine Protein Urine Glucose (UA) Urine Ketones Urine Blood Urine Nitrite Urine Bilirubin Urine Urobilinogen (Auto) Ur Leukocyte Esterase Urine RBC Urine WBC Ur Squamous Epith Cells Urine Bacteria Hyaline Casts Ur Culture Indicated? Urine Opiates Screen Urine Fentanyl Screen Ur Barbiturates Screen U Amphetamin/Meth Scrn U Benzodiazepines Scrn U Cocaine Metab Screen U Marijuana (THC) Screen Quality Measures Quality Measures VTE prophylaxis Advance care planning discussed with:: sibling Assessment & Plan Assessment Current Active Medications: Generic Name Dose Route Start Last Admin Trade Name Freq PRN Reason Stop Dose Admin Acetaminophen 650 mg 07/27/25 17:19 Acetaminophen 325 Mg Tablet PO 08/26/25 17:18 Q6H PRN PAIN SCALE 1-3 (mild Acetaminophen 650 mg 07/27/25 17:19 Acetaminophen 325 Mg Tablet PO 08/26/25 17:18 Q6H PRN Fever >101.5 Hydrocodone Bitart/Acetaminophen 1 tab 07/27/25 17:19 Hydrocodone/Apap 5/325 Tablet PO 08/01/25 17:18 Q6HR PRN PAIN SCALE 4-6 (Moderate Allopurinol 100 mg 07/28/25 09:00 07/28/25 10:05 Allopurinol 100 Mg Tablet PO 08/27/25 08:59 100 mg DAILY ILIANA Administration Bumetanide 1 mg 07/28/25 09:00 07/28/25 10:00 Bumetanide Inj 0.25 Mg/Ml Vial 4 Ml IVP 08/27/25 08:59 1 mg QDAY ILIANA Administration Calcitriol 0.25 mcg 07/28/25 09:00 07/28/25 10:00 Calcitriol 0.25 Mcg Capsule PO 08/27/25 08:59 0.25 mcg DAILY ILIANA Administration Digoxin 0.125 mg 07/28/25 09:00 07/28/25 10:05 Digoxin 0.125 Mg Tablet PO 08/27/25 08:59 0.125 mg QOD ILIANA Administration Doxycycline Hyclate 100 mg 07/28/25 09:00 07/28/25 10:05 Doxycycline 100 Mg Tablet PO 08/04/25 08:59 100 mg BID ILIANA Administration Heparin Sodium (Porcine) 5,000 unit 07/28/25 19:00 Heparin Sod Inj 5000 Unit/Ml Vial SC 07/28/25 19:01 X1 ONE Ceftriaxone Sodium/Dextrose 1 gm in 50 mls @ 100 mls/hr 07/28/25 08:30 07/28/25 10:06 Rocephin/D5w 1gm Iv Premix IV 08/04/25 08:29 100 mls/hr QDAY ILIANA Administration Remdesivir 100 mg/ Sodium 100 mls @ 100 mls/hr 07/28/25 14:00 Chloride IV 07/29/25 14:59 Q24H NR Protocol Levalbuterol HCl 1.25 mg 07/27/25 16:37 Levalbuterol Rt 1.25 Mg/0.5 Ml Nebu INH 08/26/25 18:59 Q6HRRT PRN SHORTNESS OF BREATH OR WHEEZE Pharmacy Consult 1 each 07/28/25 08:17 Pharmacy Renal Dose Adjustment 1 Ea XX 08/27/25 08:16 PRN PRN CONSULT Sodium Chloride 3 ml 07/27/25 16:29 Sodium Chloride Rt Renetta 0.9% 3 Ml Nebu INH 08/26/25 16:28 PRN PRN SOLN Spironolactone 12.5 mg 07/27/25 17:30 07/27/25 18:48 Spironolactone 25 Mg Tablet PO 08/26/25 17:29 12.5 mg On Hold: 07/28/25 08:20 QDAY ILIANA Administration Plan Dipti Alexander 75F significant pmhx of developmental delay, CLL, CKDIV, HTN, previous cardiac arrest, inflammatory anemia, A-fib on Eliquis, hyperlipidemia, CHF, osteoporosis and coronary artery bypass graft presented on 07/27/2025 with chief complaint of worsening of SOB for 1 day. The patient also received 1 L of IV bolus fluid, and ceftriaxone in the ED. The patient was started on remdesivir, doxycycline. The patient was admitted to telemetry unit for further management of COVID-pneumonia, in the setting of CHF exacerbation with left pleural effusion. #COVID 19 pneumonia #Left pleural effusion s/p thoracentesis 07/28 09/15 #Acute decompensated chronic systolic and diastolic heart failure, NYHA III (EF 25%, 2020) Patient presented to ED with acute shortness of breath, and was found to have COVID-19 positive, chest x-ray significant for bibasilar pneumonia, and left pleural effusion. BNP 988, [place] 1.88. s/p remdesivir 250 mg x1 in ED 2020 TTE: Dilated cardiomyopathy with severe global hypokinesis EF 25%, severe LV dysynchrony due to LBB, biatrial enlargement, mild MR Thoracentesis 07/28 with 650 cc removed. Ddx: COVID, CAP vs aspiration PNA CHADVASC: 5 HASBLED: 3 Plan: - Ceftriaxone 1g QD and doxycycline 100 mg BID (07/27- - Remdesivir 100 mg QD (07/27- - IV Bumex 1 mg QD - L thoracentesis scheduled for today - Pending TTE read, f/u BCx - Cardiology consulted, recs appreciated - Strict I&Os, daily weights, 1.8L fluid restriction - Levalbuterol INH q6h prn #Anemia of chronic disease 2/2 #Chronic kidney disease stage IV #Macrocytic anemia Presented with BUN 44 and creatinine 2.2, near to the baseline of 2.1-2.3, hemoglobin 8.6 with previous elevated ferritin with normal range of folic acid and vitamin B12 Plan: - Avoid nephrotoxic medications and renally dose medications - Monitor and replete electrolytes as needed - Restarted home calcitriol and allopurinol #Chronic atrial fibrillation #CAD s/p CABG Patient is currently in atrial fibrillation. Follows Dr. Ruiz outpatient. Plan: - Hold Eliquis at the patient is supposed to undergo left thoracocentesis tomorrow morning - Continue digoxin 125 mcg QOD - Telemetry monitoring #HTN Soft BP on admission. Plan: - Hold home carvedilol 0.25 mg BID #CLL WBC on admission 26.5, baseline appears 12-18. Follows Dr. Travis and was unable to tolerate acalabrutinib. Plan: - F/U onc outpatient #Developmental Delay, stable Hospital management: Lines: PIV Diet: NPO for thora Bowel: not indicated GI prophylaxis: not indicated DVT prophylaxis: Hold Eliquis iso thoracentesis Disposition: tele, COVID PNA management, thoracentesis CODE STATUS: FULL CODE Plan of care discussed with attending Dr. Joseph, and PGY-2 Dr. Peterson. Hanna Vega, DO PGY-1 Internal Medicine Attending Provider Attestation/Addendum 75-year-old female with developmental delay, status post CABG, CHF, A-fib, CLL, chronic kidney disease is admitted for worsening shortness of breath. Patient tested positive for COVID. He has pleural effusion scheduled for thoracentesis today. Patient was started on remdesivir IV. Echocardiogram requested. Continue cardiac monitoring.
[2025-07-28 11:59] LABS: Band Neutrophils (Manual) 4 % (0-6); Lymphocytes (Manual) 49 % (20-44); Monocytes (Manual) 1 % (2-9); Myelocytes (Manual) 2 % (0-0); Neutrophils (Manual) 44 % (50-70)
[2025-07-28 12:00] LABS: Atypical Lymphs Few
--- NOTE | 2025-07-28 12:27 | PC.SS ---
Update: Patient is Covid (+). Echo is pending. Dr. Ruiz consulting.
[2025-07-28] MEDS: REMDESIVIR INJ 100 MG in SODIUM CHLORIDE 0.9% 100 ML IV (16:08)
[2025-07-28 16:49] LABS: Amylase,Pleural Fluid < 20 IU/L; Glucose,Pleural Fluid 153 mg/dL; LDH,Pleural Fluid 73 IU/L; Pleural Fluid Mononuclear 76.0 %; Pleural Fluid Polynuclear 24.0 %; Pleural Fluid WBC 171 /cmm; Protein Total,Pleural Fluid 2.8 g/dL
[2025-07-28 16:52] LABS: Pleural Fluid Appearance Hazy; Pleural Fluid Color Yellow
[2025-07-28 16:53] LABS: Pleural Fluid RBC 1000 /cmm
[2025-07-28] MEDS: ACETAMINOPHEN 325 MG TABLET 650 MG PO (22:33)
[2025-07-29] VITALS: BP 108/68; PULSE 135; PULSE 89; RESP 22; TEMP 36.6; O2SAT 99
[2025-07-29 04:00] VITALS: BP 163/66; PULSE 85; PULSE 87; RESP 27; TEMP 36.1; O2SAT 88
--- NOTE | 2025-07-29 05:36 | PC.NURSE ---
Patient refusing both NC and oxymask with oxygen levels dropping to as low as 87%. Patient educated on why she needs oxygen at this time. Patient stating I already did it.
[2025-07-29 06:18] LABS: Basophils # (Auto) 0.1 Thou/mm3 (0.0-0.2); Basophils % (Auto) 0 % (0-2.5); Eosinophils # (Auto) 0.1 Thou/mm3 (0.0-0.5); Eosinophils % (Auto) 0 % (0-10); Hematocrit 24.3 % (36.0-46.0); Immature Granulocytes Auto 0.97 Thou/mm3 (0.00-0.00); Lymphocytes # (Auto) 13.2 Thou/mm3 (1.0-4.8); Lymphocytes % (Auto) 61 % (10-50); Mean Corpuscular HGB Conc 32.5 g/dl (31.0-37.0); Mean Corpuscular Hemoglobin 34.6 pg (25.0-35.0); Mean Corpuscular Volume 107 fL (80-100); Monocytes # (Auto) 0.8 Thou/mm3 (0.0-0.8); Monocytes % (Auto) 4 % (0-12); Neutrophils # (Auto) 6.6 Thou/mm3 (1.8-7.7); Neutrophils % (Auto) 30 % (37-80); Nucleated Red Blood Cell # 0.16 Thou/mm3 (0.00-0.00); Nucleated Red Blood Cell % 1 /100 WBC (0); Platelet Count 390 Thou/mm3 (140-440); RDW Standard Deviation 82.1 fL (36.4-46.3); Red Blood Count 2.28 Miln/mm3 (4.00-5.20); White Blood Count 21.7 Thou/mm3 (3.6-11.0)
[2025-07-29 06:43] LABS: Alanine Aminotransferase 22 U/L (10-49); Albumin, Serum 3.8 gm/dL (3.4-4.8); Albumin/Globulin Ratio 1.5 (1.2-2.2); Alkaline Phosphatase 201 U/L (46-116); Anion Gap 15 (7-16); Aspartate Amino Transferase 18 U/L (0-34); BUN/Creatinine Ratio 23 Ratio (12-20); Bilirubin,Total 0.4 mg/dL (0.3-1.2); Blood Urea Nitrogen 59 mg/dL (9-23); Calcium 9.0 mg/dL (8.3-10.6); Calcium (Corrected) 9.2 mg/dL (8.5-10.1); Carbon Dioxide 21.0 mMol/L (20.0-31.0); Chloride 108 mMol/L (98-107); Creatinine (Component) 2.6 mg/dL (0.6-1.3); Estimated Creatinine Clearance 17.0 mL/min (>60); Globulin 2.5 gm/dL (2.3-3.5); Glucose 98 mg/dL (74-106); Magnesium 2.2 mg/dL (1.6-2.6); Osmolality,Calculated 303 (275-295); Phosphorous 4.6 mg/dL (2.4-5.1); Potassium 3.9 mMol/L (3.4-5.1); Sodium 144 mMol/L (136-145); Total Protein 6.3 gm/dL (5.7-8.2); eGFR 19 See Note
[2025-07-29 06:58] LABS: Hemoglobin 7.9 g/dL (12.0-16.0)
[2025-07-29 08:00] VITALS: BP 97/64; PULSE 88; PULSE 98; RESP 17; TEMP 36.1; O2SAT 94
[2025-07-29] MEDS: DOXYCYCLINE 100 MG TABLET PO ×2 (08:19→21:17)
[2025-07-29] MEDS: cefTRIAXone/D5w 1gm IV premix 1 GM/50 ML BAG IV (08:19)
[2025-07-29] MEDS: APIXABAN 2.5 MG TABLET PO ×2 (10:00→21:17)
[2025-07-29 12:00] VITALS: BP 113/63; PULSE 90; PULSE 99; RESP 17; TEMP 35.9; O2SAT 98
--- NOTE | 2025-07-29 13:03 | ESPR_ITS ---
<Statement entered by Kosta Peterson MD - 07/29/25 22:46> I saw and examined patient personally and supervised PGY 1 resident, Dr. Vega with formulating a management plan. I agree with the documentation with the exceptions as listed below. Creatinine up trended to 2.6 from 2.2. Bumex was put on hold. Also discontinued remdesivir as patient is saturating on room air and does not meet the criteria for treatment. Will monitor renal panel for improvement of creatinine tomorrow. Cardiology, Dr. Ruiz was consulted. Appreciate recommendations. Plan of care discussed with Attending Dr. Awa Peterson MD PGY 2 Disclaimer: This note was dictated by speech recognition. Minor errors in construction plant operator may be present due to voice recognition software. Documentation for date of: 07/29/25 Subjective Subjective Interval history: Overnight patient desaturated to high 80s however refused nasal cannula. Patient seen examined at bedside. Patient does not endorse any pain or shortness of breath, only particular about her breakfast. SBP [id number]. Telemetry reviewed atrial fibrillation controlled rate however 5 minutes of possible flutter with rate 130-140 at 725-730 a.m. saturating 80% room air, tachypneic. WBC downtrending, hemoglobin stable, BUN up trended, creatinine now 2.6 from 2.2. Discontinue remdesivir as patient is not on steroids and saturating on room air. Hold Bumex iso TEENA and will encourage oral hydration as patient has HFrEF. Exam Vital Signs Temp Pulse Resp BP Pulse Ox O2 Del Method O2 Flow Rate 97.0 F 88 17 97/64 94 L Room Air 2 07/29/25 08:00 07/29/25 08:00 07/29/25 08:00 07/29/25 08:00 07/29/25 08:00 07/29/25 08:00 07/27/25 23:11 Narrative Exam GENERAL: Alert, developmentally delayed (mental age of 12 y/o per sister), no acute distress HEENT: mucous membranes moist, bilateral sclera anicteric CARDIOVASCULAR: regular rate and rhythm, S1/S2 present, no murmurs appreciated PULMONARY: improved bilateral crackles at base ABDOMINAL: soft, non-tender, non-distended, no rebound/guarding, bowel sounds present EXTREMITIES: 1+ pitting edema BLE SKIN: warm and dry, no rashes, flaky NEURO: CN II-XII grossly intact, no focal deficits, alert, following commands Objective Labs 07/29/25 05:34 07/29/25 05:34 Labs: Laboratory Results - last 24 hr 07/28/25 07/29/25 12:58 05:34 WBC 21.7 H RBC 2.28 L Hgb 7.9 L Hct 24.3 L MCV 107 H MCH 34.6 MCHC 32.5 RDW Std Deviation 82.1 H Plt Count 390 D Neut % (Auto) 30 L Lymph % (Auto) 61 H [place] % (Auto) 4 Eos % (Auto) 0 Baso % (Auto) 0 Neut # (Auto) 6.6 Lymph # (Auto) 13.2 H [place] # (Auto) 0.8 Eos # (Auto) 0.1 Baso # (Auto) 0.1 Immature Gran # (Auto) 0.97 H Absolute Nucleated RBC 0.16 H Immature Gran % 5 H Nucleated RBC % 1 H Sodium 144 Potassium 3.9 Chloride 108 H Carbon Dioxide 21.0 Anion Gap 15 BUN 59 H Creatinine 2.6 H Estim Creat Clear Calc 17.0 L eGFR 19 L BUN/Creatinine Ratio 23 H Glucose 98 Calculated Osmolality 303 H Calcium 9.0 Corrected Calcium 9.2 Phosphorus 4.6 Magnesium 2.2 Total Bilirubin 0.4 AST 18 ALT 22 Alkaline Phosphatase 201 H Total Protein 6.3 Albumin 3.8 Globulin 2.5 Albumin/Globulin Ratio 1.5 Pleural Color Yellow Pleural Appearance Hazy Pleural WBC 171 Pleural RBC 1000 Pleural Polynuclear WBC 24.0 Pleural Mononuclear WBC 76.0 Pleural Total Protein 2.8 Pleural LDH 73 Pleural Glucose 153 Pleural Amylase < 20 Quality Measures Quality Measures VTE prophylaxis Advance care planning discussed with:: sibling Assessment & Plan Assessment Current Active Medications: Generic Name Dose Route Start Last Admin Trade Name Freq PRN Reason Stop Dose Admin Acetaminophen 650 mg 07/27/25 17:19 07/28/25 22:33 Acetaminophen 325 Mg Tablet PO 08/26/25 17:18 650 mg Q6H PRN Administration PAIN SCALE 1-3 (mild Acetaminophen 650 mg 07/27/25 17:19 Acetaminophen 325 Mg Tablet PO 08/26/25 17:18 Q6H PRN Fever >101.5 Hydrocodone Bitart/Acetaminophen 1 tab 07/27/25 17:19 Hydrocodone/Apap 5/325 Tablet PO 08/01/25 17:18 Q6HR PRN PAIN SCALE 4-6 (Moderate Allopurinol 100 mg 07/28/25 09:00 07/29/25 08:19 Allopurinol 100 Mg Tablet PO 08/27/25 08:59 100 mg DAILY ILIANA Administration Apixaban 2.5 mg 07/29/25 09:00 07/29/25 10:00 Apixaban 2.5 Mg Tablet PO 08/28/25 08:59 2.5 mg BID ILIANA Administration Bumetanide 1 mg 07/28/25 09:00 07/28/25 10:00 Bumetanide Inj 0.25 Mg/Ml Vial 4 Ml IVP 08/27/25 08:59 1 mg On Hold: 07/29/25 07:56 QDAY ILIANA Administration Calcitriol 0.25 mcg 07/28/25 09:00 07/29/25 08:19 Calcitriol 0.25 Mcg Capsule PO 08/27/25 08:59 0.25 mcg DAILY ILIANA Administration Digoxin 0.125 mg 07/28/25 09:00 07/28/25 10:05 Digoxin 0.125 Mg Tablet PO 08/27/25 08:59 0.125 mg QOD ILIANA Administration Doxycycline Hyclate 100 mg 07/28/25 09:00 07/29/25 08:19 Doxycycline 100 Mg Tablet PO 08/04/25 08:59 100 mg BID ILIANA Administration Ceftriaxone Sodium/Dextrose 1 gm in 50 mls @ 100 mls/hr 07/28/25 08:30 07/29/25 08:19 Rocephin/D5w 1gm Iv Premix IV 08/04/25 08:29 100 mls/hr QDAY ILIANA Administration Levalbuterol HCl 1.25 mg 07/27/25 16:37 Levalbuterol Rt 1.25 Mg/0.5 Ml Nebu INH 08/26/25 18:59 Q6HRRT PRN SHORTNESS OF BREATH OR WHEEZE Pharmacy Consult 1 each 07/28/25 08:17 Pharmacy Renal Dose Adjustment 1 Ea XX 08/27/25 08:16 PRN PRN CONSULT Sodium Chloride 3 ml 07/27/25 16:29 Sodium Chloride Rt Renetta 0.9% 3 Ml Nebu INH 08/26/25 16:28 PRN PRN SOLN Spironolactone 12.5 mg 12/14/25 17:30 07/27/25 18:48 Spironolactone 25 Mg Tablet PO 08/26/25 17:29 12.5 mg On Hold: 07/28/25 08:20 QDAY ILIANA Administration Plan Dipti Alexander 75F significant pmhx of developmental delay, CLL, CKDIV, HTN, previous cardiac arrest, inflammatory anemia, A-fib on Eliquis, hyperlipidemia, CHF, osteoporosis and coronary artery bypass graft presented on 07/27/2025 with chief complaint of worsening of SOB for 1 day. The patient also received 1 L of IV bolus fluid, and ceftriaxone in the ED. The patient was started on remdesivir, doxycycline. The patient was admitted to telemetry unit for further management of COVID-pneumonia, in the setting of CHF exacerbation with left pleural effusion. #TEENA 2/2 diuresis on #Chronic kidney disease stage IV On 07/29, Cr inc to 2.6 GFR 19 from baseline 2.1-2.3 GFR 20s. / Bumex. Plan: - Encourage oral intake - Avoid excessive fluids as patient has HFrEF - Bumex held #COVID 19 pneumonia #Left pleural effusion s/p thoracentesis 07/28 09/15 #Acute decompensated chronic systolic and diastolic heart failure, NYHA III (EF 20-25%, 07/2025) Patient presented to ED with acute shortness of breath, and was found to have COVID-19 positive, chest x-ray significant for bibasilar pneumonia, and left pleural effusion. BNP 988, [place] 1.88. s/p remdesivir 250 mg x1 in ED 2024 TTE: LV size moderately enlarged and severe global hypokinesis, global LV function severely decreased, left intraventricular dicing craning present, estimated EF 2024%. RV chamber mildly enlarged systolic function normal moderate pulmonary hypertension RVSP 47 mmHg, mild MV stenosis and mild regurgitation, mild TVR, LA severely enlarged, RA severely enlarged. Thoracentesis 07/28 with 650 cc removed. Ddx: COVID, CAP vs aspiration PNA Plan: - Ceftriaxone 1g QD and doxycycline 100 mg BID (07/27- - Discontinue Remdesivir - IV Bumex 1 mg QD hold iso TEENA - F/u BCx - Cardiology consulted, recs appreciated - Strict I&Os, daily weights, 1.8L fluid restriction - Levalbuterol INH q6h prn #Anemia of chronic disease #Macrocytic anemia Presented with BUN 44 and creatinine 2.2, near to the baseline of 2.1-2.3, hemoglobin 8.6 with previous elevated ferritin with normal range of folic acid and vitamin B12. CLL component. Plan: - CTM for hemodynamic instability - Restarted home calcitriol and allopurinol #Chronic atrial fibrillation #CAD s/p CABG Patient is currently in atrial fibrillation. Follows Dr. Ruiz outpatient. CHADVASC: 5 HASBLED: 3 Plan: - Eliquis 2.5 mg BID - Continue digoxin 125 mcg QOD - Telemetry monitoring #Hx of HTN Soft BP on admission. Plan: - Hold home carvedilol 0.25 mg BID #Hx of CLL WBC on admission 26.5, baseline appears 12-18. Follows Dr. Travis and was unable to tolerate acalabrutinib. Plan: - F/U onc outpatient #Developmental Delay, stable Hospital management: Lines: PIV Diet: Cardiac Bowel: not indicated GI prophylaxis: not indicated DVT prophylaxis: Eliquis Disposition: tele, TEENA CODE STATUS: FULL CODE Plan of care discussed with attending Dr. Billings, and PGY-2 Dr. Peterson. Hanna Vega DO PGY-1 Internal Medicine Attending Provider Attestation/Addendum I have discussed and was present for the essential components of the history, physical examination, diagnosis, and treatment plan with the resident. I agree with the patient's care as documented by the resident and amended herein by me. Cameron Billings DO. Although this document has been carefully reviewed, there may still be some phonetic and other typographical errors. These errors are purely grammatical due to imperfections in the software program and should not be construed in any way to compromise the substance of the patient's medical care during this visit. Patient seen and evaluated this AM. No acute events overnight, vital signs stable, patient afebrile, SpO2 88% on room air this morning. I/O's and appear to be accurately recorded, [id number] however no output recorded. WBC continues to downtrend, hemoglobin low but stable at 7.9, uptrending creatinine to 2.6 today, BUN 59. Ejection fraction 20% per echo on 07/27. For the patient's acute kidney injury, I suspect is likely from diuretic use which we will hold today and continue to monitor for improvement in renal function. For the patient's COVID-pneumonia, patient was never on dexamethasone, is presently on room air I am going to discontinue remdesivir today. For the patient's decompensated heart failure, as stated above I am going to hold diuretics today in setting of worsening renal function however will continue digoxin per cardiology recommendations. Strict I's and O's, daily weights and fluid restriction to 1.8 L also ordered. Patient was started on ceftriaxone and doxycycline for possible superimposed bacterial infection, will repeat procalcitonin, if within normal limits, may DC antibiotics tomorrow. Will continue to monitor close questions here.
--- NOTE | 2025-07-29 13:25 | ESCONSULT_ITS ---
RE: JEANTETE ALEXANDER : 1950 DATE OF CONSULTATION: 07/29/25 REFERRING PHYSICIAN: The hospitalist. HISTORY OF PRESENT ILLNESS: Jeanette Alexander is a 75-year-old female who is known to have a history of multiple problems of chronic congestive heart failure, history of chronic atrial fibrillation, history of developmental disability, history of chronic renal failure. The patient was in her usual state of health up until a couple of days before admission, the patient started having symptoms of increasing shortness of breath. The patient was seen in the emergency room and was diagnosed to have COVID pneumonia as well as worsening of the congestive heart failure. Since hospitalization, the patient has been treated with anti-COVID medications as well as intravenous diuretic therapy. The patient also has had thoracentesis done on the left side. The patient presently is feeling better. The patient is resting comfortably by the bedside. The patient is denying any symptoms of chest pain. Denies any complaint of fever or chills. Denies any complaint of skipped beats or palpitations. PAST MEDICAL HISTORY: Significant for history of chronic congestive heart failure for the last several years, history of chronic atrial fibrillation for the last several years, history of developmental disability, history of chronic renal failure as well as chronic anemia. PERSONAL HISTORY: The patient is a nonsmoker, nonalcoholic, and lives with her sister. PHYSICAL EXAMINATION: VITAL SIGNS: Show the patient's blood pressure is 97/64, pulse rate is 88 and irregularly irregular, respiratory rate is 17, temperature is 97, oximetry saturation on room air is 94%. HEAD AND NECK: JVP is not elevated. Carotid pulsations are palpable on both sides. No carotid bruits heard. HEART: PMI neither palpable, nor visible. S1 and S2 are normal. No murmur or gallop is appreciated. LUNGS: Show decreased breath sound at the bases. ABDOMEN: Soft. No organomegaly. EXTREMITIES: Trace pedal edema is noted. NEUROLOGIC: Unremarkable except for the developmental disability. DIAGNOSTIC DATA: The patient's electrocardiogram showed atrial fibrillation with moderate ventricular response, intraventricular conduction disturbance with left axis deviation and nonspecific ST-T changes. The patient's lab work on admission showed WBC count of 26,500, hemoglobin 8.6 with a hematocrit of 26.9. Today, WBC count is better than before, though still elevated and is 21,700, hemoglobin 7.9 with hematocrit of 24.3. The patient's BUN on admission was 44, creatinine 2.2, potassium level 4.1. BNP level of 988. Today patient's BUN is 59, creatinine is 2.6, potassium level is 3.9. TSH level is within the euthyroid range and is 0.57. Cardiac echo Doppler study showed moderately enlarged left ventricle with moderate diffuse left ventricular hypokinesis and left ventricular ejection fraction of 20% to 25%. Right as well as left atrial chambers are markedly enlarged. Mild mitral valve stenosis and mild mitral regurgitation is noted. Mild tricuspid regurgitation is noted. Moderate pulmonary hypertension is also noted. The patient's chest x-ray post thoracentesis showed improvement in the left-sided pleural effusion. CLINICAL IMPRESSION: 1. Acute COVID pneumonia with left-sided pleural effusion requiring thoracentesis. 2. Chronic congestive heart failure. 3. Chronic atrial fibrillation. 4. Chronic azotemia. 5. Chronic anemia. 6. Developmental disability. SUGGESTIONS: I agree with the present plan of management of the patient for continuing the patient on anticoagulant therapy, continuing the patient on antibiotic therapy, continuing the patient on diuretic therapy as well as digoxin. Cardiac status at the present time is stable and discharge planning is as per the hospitalist. DT: 12:59:47 TT: 13:23:00 Ref: [id number] - TID: [id number]
[2025-07-29 16:00] VITALS: BP 120/66; PULSE 67; PULSE 70; RESP 16; TEMP 35.9; O2SAT 99
[2025-07-29 20:00] VITALS: BP 114/54; PULSE 113; PULSE 78; RESP 20; TEMP 36.3; O2SAT 95
[2025-07-29] MEDS: MELATONIN 3 MG TABLET 6 MG PO (21:17)
[2025-07-30] VITALS (7 sets, daily range): BP systolic 105–125; BP diastolic 64–84; PULSE 71–125; RESP 17–22; TEMP 36–36.4; O2SAT 92–98; BMI 25.8
[2025-07-30 06:22] LABS: Basophils # (Auto) 0.1 Thou/mm3 (0.0-0.2); Basophils % (Auto) 1 % (0-2.5); Eosinophils # (Auto) 0.1 Thou/mm3 (0.0-0.5); Eosinophils % (Auto) 0 % (0-10); Hematocrit 26.8 % (36.0-46.0); Immature Granulocytes Auto 1.33 Thou/mm3 (0.00-0.00); Lymphocytes # (Auto) 15.5 Thou/mm3 (1.0-4.8); Lymphocytes % (Auto) 65 % (10-50); Mean Corpuscular HGB Conc 32.5 g/dl (31.0-37.0); Mean Corpuscular Hemoglobin 34.4 pg (25.0-35.0); Mean Corpuscular Volume 106 fL (80-100); Monocytes # (Auto) 0.7 Thou/mm3 (0.0-0.8); Monocytes % (Auto) 3 % (0-12); Neutrophils # (Auto) 6.0 Thou/mm3 (1.8-7.7); Neutrophils % (Auto) 26 % (37-80); Nucleated Red Blood Cell # 0.12 Thou/mm3 (0.00-0.00); Nucleated Red Blood Cell % 1 /100 WBC (0); Platelet Count 363 Thou/mm3 (140-440); RDW Standard Deviation 81.6 fL (36.4-46.3); Red Blood Count 2.53 Miln/mm3 (4.00-5.20); White Blood Count 23.7 Thou/mm3 (3.6-11.0)
[2025-07-30 06:37] LABS: Hemoglobin 8.7 g/dL (12.0-16.0)
[2025-07-30 06:49] LABS: Alanine Aminotransferase 19 U/L (10-49); Albumin, Serum 3.9 gm/dL (3.4-4.8); Albumin/Globulin Ratio 1.6 (1.2-2.2); Alkaline Phosphatase 180 U/L (46-116); Anion Gap 14 (7-16); Aspartate Amino Transferase 15 U/L (0-34); BUN/Creatinine Ratio 26 Ratio (12-20); Bilirubin,Total 0.4 mg/dL (0.3-1.2); Blood Urea Nitrogen 57 mg/dL (9-23); Calcium 9.2 mg/dL (8.3-10.6); Calcium (Corrected) 9.3 mg/dL (8.5-10.1); Carbon Dioxide 23.6 mMol/L (20.0-31.0); Chloride 106 mMol/L (98-107); Creatinine (Component) 2.2 mg/dL (0.6-1.3); Estimated Creatinine Clearance 20.0 mL/min (>60); Globulin 2.5 gm/dL (2.3-3.5); Glucose 97 mg/dL (74-106); Magnesium 2.2 mg/dL (1.6-2.6); Osmolality,Calculated 302 (275-295); Phosphorous 4.0 mg/dL (2.4-5.1); Potassium 4.4 mMol/L (3.4-5.1); Procalcitonin 0.94 ng/ml (0.0-0.49); Sodium 144 mMol/L (136-145); Total Protein 6.4 gm/dL (5.7-8.2); eGFR 23 See Note
[2025-07-30] MEDS: DOXYCYCLINE 100 MG TABLET PO (09:15)
[2025-07-30] MEDS: APIXABAN 2.5 MG TABLET PO (09:16)
[2025-07-30] MEDS: cefTRIAXone/D5w 1gm IV premix 1 GM/50 ML BAG IV (09:17)
[2025-07-30] MEDS: DIGOXIN 0.125 MG TABLET PO (09:17)
--- NOTE | 2025-07-30 10:09 | ESDS_ITS ---
<Statement entered by Kosta Peterson MD - 07/30/25 16:21> I saw and examined patient personally and supervised PGY 1 resident, Dr. Vega with formulating a discharge plan. I agree with the documentation as listed below. Plan of care discussed with Attending Dr. Awa Peterson MD PGY 2 Disclaimer: This note was dictated by speech recognition. Minor errors in t ranscription may be present due to voice recognition software. Planned Discharge Date 07/30/25 DS: Providers Provider Date of admission: 07/27/25 17:19 Primary care physician: CHIOMA Vaca Admitting Provider: Prabhu Joseph MD Attending Provider on Admission: Jose Billings DO Consults: 07/27/25 17:32 Consult to Cardiology Stat Comment: CHF exacerbation with Pleural effusion and Afib Consulting Provider: Darek Ruiz 07/28/25 01:59 Referral Infection Control Routine Comment: Instructions: covid 19 Reason for Infection Control Referral: Patient In Isolation Attending Provider on DC: Jose Billings DO Discharging Provider: Jose Billings DO DS: Diagnosis Problem List Completed Was Problem List Reviewed/Reconciled?: Yes Hospital Course Hospital Course Hospital course: Summary: Dipti Alexander 75F significant pmhx of developmental delay, CLL, CKDIV, HTN, previous cardiac arrest, inflammatory anemia, A-fib on Eliquis, hyperlipidemia, CHF, osteoporosis and coronary artery bypass graft presented on 07/27/2025 with chief complaint of worsening of SOB for 1 day. The patient also received 1 L of IV bolus fluid, and ceftriaxone in the ED. The patient was started on remdesivir, doxycycline. The patient was admitted to telemetry unit for further management of COVID-pneumonia, in the setting of CHF exacerbation with left pleural effusion. Patient presented to ED with acute shortness of breath, and was found to have COVID-19 positive, chest x-ray significant for bibasilar pneumonia, and left pleural effusion. BNP 988, [place] 1.88. Patient initially treated with remdesivir, discontinued due to mild severity. Furthermore patient was also treated with antibiotics to cover community-acquired pneumonia. Patient was also noted to have left pleural effusion on chest x-ray on admission and underwent thoracentesis on 07/28 with 500 cc removed. Patient was also diuresed however developed TEENA and held for 1 day with resolution of TEENA. Cardiology was consulted as she follows Dr. Ruiz closely outpatient. On discharge, patient hemodynamically stable, labs and vitals reviewed to be stable and patient to be discharged home. Imagin TTE: LV size moderately enlarged and severe global hypokinesis, global LV function severely decreased, left intraventricular dicing craning present, estimated EF 2024%. RV chamber mildly enlarged systolic function normal moderate pulmonary hypertension RVSP 47 mmHg, mild MV stenosis and mild regurgitation, mild TVR, LA severely enlarged, RA severely enlarged. Chest x-ray significant for bibasilar pneumonia, and left pleural effusion Discharge Recommendations: - Please take all medications as prescribed - START one more day of doxycycline and cefuroxime to complete 5 day course of antibiotics - Continue all home medications except as above - Please follow up with your PCP within one week of discharge - Please follow up with your cardiology Dr. Ruiz within one week of discharge - If your symptoms worsen, please seek immediate medical attention and return to your nearest emergency room. - If you do not have a PCP, you may follow up at the [facility] at [address] [place] [address] [address] [address], Hospital Diagnoses: #COVID 19 pneumonia #Left pleural effusion s/p thoracentesis 07/28 2/2 #Acute decompensated chronic systolic and diastolic heart failure, NYHA III (EF 20-25%, 07/2025) #TEENA 2/2 diuresis on #Chronic kidney disease stage IV #Anemia of chronic disease #Macrocytic anemia #Chronic atrial fibrillation #CAD s/p CABG #Hx of HTN #Hx of CLL Plan of care discussed with attending Dr. Billings, and PGY-2 Dr. Peterson. Hanna Vega, DO Internal Medicine, PGY-1 Time Spent with Patient Time attestation: Total time spent providing and/or coordinating discharge services: Time spent: Greater than 30 minutes Exam Vital Signs Temp Pulse Resp BP Pulse Ox O2 Del Method O2 Flow Rate 97.0 F 108 H 17 112/66 92 L Room Air 2 07/30/25 08:00 07/30/25 09:17 07/30/25 08:00 07/30/25 09:17 07/30/25 08:00 07/30/25 08:00 07/27/25 23:11 Narrative Exam GENERAL: Alert, developmentally delayed (mental age of 12 y/o per sister), no acute distress HEENT: mucous membranes moist, bilateral sclera anicteric CARDIOVASCULAR: regular rate and rhythm, S1/S2 present, no murmurs appreciated PULMONARY: CTAB ABDOMINAL: soft, non-tender, non-distended, no rebound/guarding, bowel sounds present EXTREMITIES: trace pitting edema BLE SKIN: warm and dry, no rashes, flaky NEURO: CN II-XII grossly intact, no focal deficits, alert, following commands Discharge Plan Plan Patient Disposition: HOME (Self Care) Patient condition on transfer: Stable and Benefits outweigh risks Care Plan Goals: - Complete 1 more day of antibiotics as listed below. - Follow up with Dr. Ruiz in 1 week. - Follow up with your primary care physician within 1 week of discharge. If you do not have a primary care physician, please follow up with the [facility] Residents clinic ([phone]) ? If you experience any new, worsening or persistent symptoms either call your primary doctor, or dial 911 or present to the emergency department. Prescriptions/Referrals Prescriptions/Med Rec: New cefuroxime axetil 250 mg tablet 250 mg PO BID Qty: 2 0RF Rx Instructions: To complete a 5 day course doxycycline hyclate 100 mg capsule 100 mg PO BID Qty: 2 0RF Rx Instructions: To complete a 5 day course Continued digoxin 125 mcg (0.125 mg) Tablet 125 mcg PO EVERYOTHERDAY spironolactone 25 mg Tablet 12.5 mg PO QDAY allopurinol 100 mg tablet 100 mg PO DAILY Patient Comments: TAKE 1 TABLET BY MOUTH EVERY DAY Eliquis 2.5 mg tablet 2.5 mg PO DAILY Patient Comments: TAKE 1 TABLET BY MOUTH TWICE A DAY calcitriol 0.25 mcg capsule 0.25 mcg PO DAILY Patient Comments: TAKE 1 CAPSULE BY MOUTH EVERY DAY FOR 30 DAYS furosemide 40 mg tablet 40 mg PO QDAY Patient Comments: TAKE 1 TABLET BY MOUTH EVERY DAY carvedilol 3.125 mg tablet 3.125 mg PO BID Patient Comments: TAKE 1 TABLET BY MOUTH TWICE A DAY Discontinued spironolactone 25 mg tablet 12.5 mg PO EVERYOTHERDAY Patient Comments: TAKE 1/2 TABLET BY MOUTH EVERY DAY Referrals: Jennifer William FNP [Primary Care Provider] Patient/Caregiver Discharge Instructions Other Discharge Activity Instructions:: FU in my office in 2 weeks, Darke Ruiz Education Materials: Thoracentesis Dc, 2019-nCoV Print Language: Arabic Stand Alone Forms: [employer] Info., Patient Portal Info Letter Discharge Order Discharge Orders: Discharge (Routine); Ordered 07/30/25 Ordered By: Kosta Peterson Quality Discharge Quality Measures VTE prophylaxis Attestestation MD Attestation I have discussed and was present for the essential components of the discharge history, physical examination, diagnosis, and discharge treatment plan with the resident. I agree with the patient's discharge care as documented by the resid ent and amended herein by me. Cameron Billings DO. The patient understood all discharge instructions, all questions were answered satisfactorily. The patient was instructed to return to the Emergency D epartment is symptoms worsened or persisted. Although this document has been carefully reviewed, there may still be some phonetic and other typographical errors. These errors are purely grammatical due to imperfections in the software program and should not be construed in any way to compromise the substance of the patient's medical care during this visit.
--- NOTE | 2025-07-30 13:22 | PC.SS ---
CORONER TECHNICIAN confirmed with patient's sister, Augustina Dominguez; plan to discharge patient home. If home health recommended no preferred agency identified. CORONER TECHNICIAN updated bedside nurse.
--- NOTE | 2025-07-31 12:44 | PC.CC ---
Asked by HUGO Vargas to contact Augustina, patient's sister regarding allergies to discharge medications. S/W Augustina by phone who stated patient had cefuroxime and amox/clav at pharmacy and was told by pharmacist there that both antibiotics were prescribed by [facility] and both contain penicillin, which patient is allergic to. Advised Augustina that per discharge orders, patient was only prescribed doxycycline and cefuroxime. Advised Augustina that cefuroxime is related to penicillin but patient was on a cephalosporin while admitted and tolerated the medication. Augustina listed off several medications she had on hand that she believed to be from [facility], however, they appear to be prescribed from a community provider. Advised Augustina to provide patient with doxycycline and cefuroxime and to ask her PCP regarding the other medications she has on hand.
--- NOTE | 2025-08-11 11:24 | PC.SS ---
MICROFABRICATION ENGINEER MANAGER received phone call from patient's [facility] caseworker, Sebastien Banks ; requesting update on patient's discharge status. MICROFABRICATION ENGINEER MANAGER informed [facility] staff that patient discharged home on 07-30-25.
== END 2025-07-30 13:55 | disposition home or self-care (01) | DRG 177 ==
LOC: SERX 16:20 → SERHOLD 18:00 → S2NX 07-28 00:17
PROVIDERS: Registered Nurse General Practice; Student in an Organized Health Care Education/Training Program; Admitting Provider Internal Medicine; Emergency Provider Emergency Medicine; PCP Student in an Organized Health Care Education/Training Program; Visit Provider Student in an Organized Health Care Education/Training Program
DX: U07.1 COVID-19 (principal); I50.43 Acute on chronic combined systolic (congestive) and diastolic (congestive) heart failure; J12.82 Pneumonia due to coronavirus disease 2019; I13.0 Hypertensive heart and chronic kidney disease with heart failure and stage 1 through stage 4 chronic kidney disease, or unspecified chronic kidney disease; N18.4 Chronic kidney disease, stage 4 (severe); C91.10 Chronic lymphocytic leukemia of B-cell type not having achieved remission; J91.8 Pleural effusion in other conditions classified elsewhere; I48.20 Chronic atrial fibrillation, unspecified; N17.9 Acute kidney failure, unspecified; I42.0 Dilated cardiomyopathy; E78.5 Hyperlipidemia, unspecified; Z95.1 Presence of aortocoronary bypass graft; Z86.74 Personal history of sudden cardiac arrest; M81.0 Age-related osteoporosis without current pathological fracture; Z79.01 Long term (current) use of anticoagulants; I48.0 Paroxysmal atrial fibrillation; D63.1 Anemia in chronic kidney disease; Z88.5 Allergy status to narcotic agent; Z88.0 Allergy status to penicillin; Z79.899 Other long term (current) drug therapy; I25.10 Atherosclerotic heart disease of native coronary artery without angina pectoris
CPT/HCPCS: 36415; 71045; 80053; 80061; 80307; 81001; 82150; 82945; 83605; 83615; 83690; 83735; 83880; 84100; 84145; 84157; 84443; 84484; 85025; 85610; 85730; 87040; 87070; 87075; 87081; 87205; 87502; 87635; 89051; 93005; 93306; 94664; 96361; 96365; 99284; C1729; J0248; J0696; J3475; J3490; J7050; J7120; A9270